=== PATIENT | male | born 1955 | race Caucasian/White ===

== ENCOUNTER → 2020-11-01 11:17 | Outpatient (CLI) | payer OTHER, SELFPAY ==
[2019-06-07 11:01] VITALS: BMI 24.1
--- NOTE | 2020-11-01 11:33 | VDLE_ITS ---
Reason For Study: Pain and swelling RIGHT LEFT GSV is normal. GSV is normal. CFV is compressible, spontaneous, phasic, CFV is compressible, spontaneous, phasic, competent and demonstrates normal competent, and demonstrates normal augmentation. augmentation. FV is compressible, spontaneous, phasic, FV is compressible, spontaneous, phasic, competent and demonstrates normal competent and demonstrates normal augmentation. augmentation. POP V is compressible, spontaneous, phasic, POP V is compressible, spontaneous, phasic, competent and demonstrates normal competent and demonstrates normal augmentation. augmentation. T/P Trunk is compressible. T/P Trunk is compressible. PTV is compressible. PTV is compressible. RT PerV is compressible. LT PerV is compressible. Procedure This is a venous duplex using B-mode, color flow and spectral Doppler. Exam performed in department. A preliminary report was called and/or faxed to [facility]. Interpretation Summary Deep veins of the lower extremities are bilaterally patent and compressible segmentally. There is no evidence of deep vein thrombosis on either side. Valvular competence appears intact within the proximal deep venous systems bilaterally. The great saphenous veins appear bilaterally patent and compressible segmentally. Ordering Physician: Olena Zhao Referring Physician: Mark Carty Performed By: Celi Hamilton RVT
[2020-11-01 11:34] LABS: Absolute Lymphocyte Count 3.43 X10^3/uL (0.83-4.51); Eosinophil# 0.13 X10^3/uL; Eosinophils% 1.3 % (0-5); Hematocrit 44.3 % (40-54); Lymphocyte # 3.43 X10^3/ul (4.0); Lymphocyte % 34.9 % (19-41); Mean Corp Hgb Conc 33.9 g/dL (32-36); Mean Corpuscular Hgb 34.4 pg (27.0-32.0); Mean Corpuscular Volume 101.6 fL (80-94); Monocyte# 1.14 X10^3/uL; Monocyte% 11.6 % (0-10); NRBC Flagged by Analyzer 0 % (0-5); Neutrophil % 50.9 % (47-70); Platelet Count 462 K/mm3 (150-450); RBC Distribution Width CV 12.1 % (11.6-14.6); RBC Distribution Width SD 45.9 fl (35.1-43.9); Red Blood Count 4.36 M/mm3 (4.6-6.2); White Blood Count 9.8 K/mm3 (4.4-11.0)
--- NOTE | 2020-11-01 12:00 | CT_ITS ---
STUDY: CT ABDOMEN AND PELVIS WITH CONTRAST REASON FOR EXAM: Male, 64 years old. INGUINAL PAIN ON RIGHT SIDE WITH LEG SWELLING. RADIATION DOSAGE (If Supplied By Facility): CTDIvol = ( 12.41 ) mGy, DLP = ( 1099.41 ) mGycm TECHNIQUE: Transaxial images were obtained from the dome of the diaphragm to the symphysis pubis without oral contrast. IV 100mL Isovue-300 was administered. Sagittal and coronal images were reconstructed. Individualized dose optimization techniques were used for this CT. COMPARISON: None. FINDINGS: The visualized lung bases are unremarkable. The visualized portions of the heart are within normal limits. Normal liver. Normal gallbladder and extrahepatic biliary system. Normal spleen. Normal pancreas. 3 cm x 2.2 cm hypodense nodule in the left adrenal gland. There is also evidence of a 1.2 cm low density nodule in the right adrenal gland. This may represent bilateral adrenal adenomas. Normal right kidney. Normal left kidney. Normal visualized stomach. There is thickening of the third and fourth portions of the duodenum. Increased markings are seen in the surrounding peritoneal fat. An inflammatory process should be ruled out. There are multiple colonic diverticula consistent with diverticulosis. The appendix is visualized and appears normal. There is diffuse atherosclerotic calcification of the abdominal aorta, without a demonstrated aneurysm. Normal inferior vena cava. Slightly enlarged retroperitoneal lymph nodes. Mild degree of bladder wall thickening. Mild enlargement of the prostate with central calcifications. The prostate causes indentation at the bladder base. Bilateral inguinal hernias containing fat. Small umbilical hernia containing fat. Multiple small sclerotic foci are seen within the sacrum as well as the iliac bones and throughout the lumbar spine. Focal metastatic deposits should be ruled out. Disc space narrowing at the L5-S1 level. CT/Abdomen/Pelvis WITH Contrast IMPRESSION: Inflammatory changes are seen along the third portion of the duodenum with increased markings in the surrounding peritoneal fat. Mildly enlarged retroperitoneal lymph nodes. Prostatic enlargement with indentation at the bladder base and diffuse bladder wall thickening. Multiple small sclerotic foci seen within the lumbar spine as well as the pelvic bones as described. Lateral adrenal nodules more prominent on the left side. Electronically Signed: Gianluca Curtis MD at 13:19 EST , Service support ,
[2020-11-01 12:16] LABS: Absolute Lymphocyte Count 3.02 X10^3/uL (0.83-4.51); Basophil# 0.08 X10^3/uL; Eosinophil# 0.11 X10^3/uL; Eosinophils% 1.3 % (0-5); Hematocrit 43.4 % (40-54); Hemoglobin 14.7 g/dL (13.0-16.5); Lymphocyte # 3.02 X10^3/ul (4.0); Lymphocyte % 36.7 % (19-41); Mean Corp Hgb Conc 33.9 g/dL (32-36); Mean Corpuscular Hgb 34.3 pg (27.0-32.0); Mean Corpuscular Volume 101.4 fL (80-94); Mean Platelet Vol. 9.5 fl (6.2-12.0); Monocyte# 0.97 X10^3/uL; Monocyte% 11.8 % (0-10); NRBC Flagged by Analyzer 0 % (0-5); Neutrophil # 4.04 X10^3/uL (2.7-7.7); Platelet Count 476 K/mm3 (150-450); RBC Distribution Width CV 12.1 % (11.6-14.6); RBC Distribution Width SD 45.4 fl (35.1-43.9); Red Blood Count 4.28 M/mm3 (4.6-6.2); White Blood Count 8.2 K/mm3 (4.4-11.0)
[2020-11-01 12:50] LABS: ALB/GLOB Ratio 1.2 RATIO (0.9-2.4); AST(SGOT) 13 U/L (15-37); Alanine Aminotransfer ALT/SGPT 29 U/L (16-61); Alkaline Phosphatase 132 U/L (45-117); Anion Gap 5 (5-15); BUN 15 mg/dL (7-18); BUN/Creat Ratio 16.3 RATIO (10-20); Calcium,Total 8.7 mg/dL (8.5-10.1); Chloride 107 mmol/L (98-107); Creatinine, Serum 0.92 mg/dL (0.70-1.30); EST Glomerular Filtration Rate 88 mL/min (>60); Est Glom Filt Rate - Afr Amer 107 mL/min (>60); Globulin 3.2 g/dL (2.2-4.2); Glucose 100 mg/dL (74-106); Protein, Total 7.2 g/dL (6.4-8.2); Sodium Level 139 mmol/L (136-145)
[2020-11-01 13:10] LABS: ALB/GLOB Ratio 1.5 RATIO (0.9-2.4); AST(SGOT) 14 U/L (15-37); Alanine Aminotransfer ALT/SGPT 29 U/L (16-61); Alkaline Phosphatase 131 U/L (45-117); Anion Gap 5 (5-15); BUN 15 mg/dL (7-18); BUN/Creat Ratio 16.9 RATIO (10-20); Calcium,Total 9.1 mg/dL (8.5-10.1); Chloride 106 mmol/L (98-107); Creatinine, Serum 0.89 mg/dL (0.70-1.30); EST Glomerular Filtration Rate 92 mL/min (>60); Est Glom Filt Rate - Afr Amer 111 mL/min (>60); Globulin 2.7 g/dL (2.2-4.2); Glucose 77 mg/dL (74-106); Potassium 4.7 mmol/L (3.5-5.1); Protein, Total 6.7 g/dL (6.4-8.2); Sodium Level 138 mmol/L (136-145)
== END ==
PROVIDERS: PCP Family Medicine; Referring Provider Nurse Practitioner; Visit Provider Nurse Practitioner
DX: R59.0 Localized enlarged lymph nodes (principal); R97.20 Elevated prostate specific antigen [PSA]; M79.661 Pain in right lower leg; M79.89 Other specified soft tissue disorders
CPT/HCPCS: 36415; 74177; 80053; 84153; 85025; 93970; Q9967; A4216

== ENCOUNTER → 2020-11-07 03:45 | Outpatient (CLI) | payer OTHER, SELFPAY ==
[2019-06-07 11:01] VITALS: BMI 24.1
--- NOTE | 2020-11-07 15:45 | PROSB_PTH ---
PATIENT: MISTI LOWE LOC: [facility] U#:[id number] AGE/SX: 69/M ROOM: RE11/07/[address]: Dr. Yo Rebolledo MD : [id number] BED: DIS: SPEC #: [id number] RECD: 11/07/20 17:00 STATUS: VANNA FEDERICO #: [id number] ROCAEL: 11/07/20 15:[address]: Yo Rebolledo DEPT: SURGICAL PATHOLOGY RECD BY: Mahendra Patel ENTERED: 11/08/20 11:44 SP TYPE: PROST BX OTHR DR: Dr. Mark Carty MD Tissues: Prostate, NOS Procedures: Surgery Specimen Level IV HEADER OPERATION: Prostate biopsy PRE-OP DIAGNOSIS: Elevated PSA TISSUE SUBMITTED: Prostate biopsy MICROSCOPIC DIAGNOSIS Prostate, core biopsy: Prostatic adenocarcinoma. Kristy grade: 4+3=7 Number of cores involved: 2/2 Proportion of tissue involved: >95% Perineural invasion: Present. Greatest tumor length: 1.3 cm See comment. SJ:lucinda 11/11/2020 COMMENT Focal tertiary pattern 5 is also noted. Case has been reviewed in consultation with Dr. Maya who concurs with the above diagnosis. IDC:AM MICROSCOPIC DESCRIPTION Slides are reviewed. GROSS DESCRIPTION Received in fixative is one container labeled with the patient's name and designated prostate. The specimen consists of two elongated fragments of light meade-white soft tissue each measuring 1.5 cm in length and 0.1 cm in diameter. The specimen is totally submitted in one cassette. / AM:lucinda 11/08/20 TC:0 CPT: 23246
== END ==
PROVIDERS: PCP Family Medicine; Referring Provider Urology; Visit Provider Urology
DX: R97.20 Elevated prostate specific antigen [PSA] (principal)
CPT/HCPCS: 88305

== ENCOUNTER → 2020-11-08 09:17 | Outpatient (CLI) | payer OTHER, SELFPAY ==
[2019-06-07 11:01] VITALS: BMI 24.1
--- NOTE | 2020-11-08 09:24 | NM_ITS ---
CLINICAL: 64-year-old male with reported history of carcinoma of the prostate. WHOLE BODY 99m Tc MDP RADIONUCLIDE BONE SCINTIGRAPHY COMPARISON: CT of the abdomen-pelvis report 11/01/2020 FINDINGS: Following the intravenous administration of 25.0 mCi of 99m Tc MDP, whole body bone images reveal: 1. Innumerable foci of increased radiopharmaceutical concentration or disseminated throughout the visualized axial skeletal structures to include multiple thoracic and lumbar vertebra, the bilateral hemipelvis, focally apparent in the right proximal humeral metaphysis, left proximal humeral diaphysis, the bilateral proximal femoral metaphysis and femoral neck-head, the right-left hemipelvic calvarium, a single focus in the upper cervical spine posteriorly to the left. 2. Facilitated tracer concentration is observed in the acromioclavicular compartments of both shoulders, sternoclavicular compartment of the left shoulder, the right elbow, left wrist, the left knee. 3. The remaining skeletal structures are scintigraphically unremarkable with normal-appearing renal images and urinary bladder activity identified. NM/Bone Scan Whole Body IMPRESSION: 1. The multifocal increase in radiopharmaceutical concentration identified in the appendicular and axial skeletal structures, the right-left calvarium is commensurate with diffuse osteoblastic osseous metastatic disease. 2. Degenerative arthritis appears expressed in the bilateral shoulders, right elbow, left wrist, the left knee articulation. Electronically Signed: Vincenzo Can DO at 8:03 EST Tel , Service support ,
== END ==
PROVIDERS: PCP Nurse Practitioner; Referring Provider Urology; Visit Provider Urology
DX: R93.5 Abnormal findings on diagnostic imaging of other abdominal regions, including retroperitoneum (principal)
CPT/HCPCS: 78306; A9500

== ENCOUNTER 2021-01-10 15:26 | Outpatient (RCR) | payer OTHER, SELFPAY ==
[2020-11-19 08:52] VITALS: BMI 23.3
[2021-01-10 10:42] LABS: Absolute Neutrophil Count 4.7 X10^3/uL (2.0-7.7); Basophil# 0.07 X10^3/uL; Basophil% 0.8 % (0-1); Eosinophil# 0.12 X10^3/uL; Eosinophils% 1.4 % (0-5); Hematocrit 40.3 % (40-54); Hemoglobin 13.3 g/dL (13.0-16.5); Lymphocyte % 34.9 % (19-41); Mean Corpuscular Hgb 33.9 pg (27.0-32.0); Mean Corpuscular Volume 102.8 fL (80-94); Mean Platelet Vol. 9.7 fl (6.2-12.0); Monocyte# 0.88 X10^3/uL; Monocyte% 9.9 % (0-10); NRBC Flagged by Analyzer 0 % (0-5); Neutrophil # 4.68 X10^3/uL (2.7-7.7); Neutrophil % 52.8 % (47-70); Platelet Count 438 K/mm3 (150-450); RBC Distribution Width CV 11.9 % (11.6-14.6); RBC Distribution Width SD 45.1 fl (35.1-43.9); Red Blood Count 3.92 M/mm3 (4.6-6.2); White Blood Count 8.9 K/mm3 (4.4-11.0)
[2021-01-10 10:55] LABS: ALB/GLOB Ratio 1.1 RATIO (0.9-2.4); AST(SGOT) 10 U/L (15-37); Alanine Aminotransfer ALT/SGPT 23 U/L (16-61); Alkaline Phosphatase 221 U/L (45-117); Anion Gap 4 (5-15); BUN 8 mg/dL (7-18); BUN/Creat Ratio 9.9 RATIO (10-20); Calcium,Total 9.2 mg/dL (8.5-10.1); Chloride 104 mmol/L (98-107); Creatinine, Serum 0.81 mg/dL (0.70-1.30); EST Glomerular Filtration Rate 102 mL/min (>60); Est Glom Filt Rate - Afr Amer 123 mL/min (>60); Globulin 3.7 g/dL (2.2-4.2); Glucose 99 mg/dL (74-106); LDH 130 U/L (87-241); PSA,Total- Diagnostic 4.75 ng/mL (0.0-4.0); Potassium 3.9 mmol/L (3.5-5.1); Protein, Total 7.7 g/dL (6.4-8.2); Sodium Level 136 mmol/L (136-145)
[2021-01-10 18:35] LABS: Xtra Tube EP Lab EXTRA TUBE
[2021-01-15 12:07] LABS: Testosterone, Free < 0.07 ng/dL (5.00-21.00)
[2021-01-15 13:31] LABS: Testosterone, % Free 2.32 % (1.50-4.20); Testosterone, Total < 3 ng/dL (264-916)
== END 2021-01-10 23:59 | disposition home or self-care (01) ==
LOC: PAVLAB 15:26
PROVIDERS: PCP Nurse Practitioner; Visit Provider Internal Medicine Medical Oncology
DX: C61 Malignant neoplasm of prostate (principal)
CPT/HCPCS: 80053; 83615; 84153; 84402; 84403; 85025

== ENCOUNTER → 2021-05-22 15:18 | Outpatient (CLI) | payer OTHER, SELFPAY ==
[2021-05-22 17:12] LABS: PSA,Total- Diagnostic 1.75 ng/mL (0.0-4.0)
== END ==
PROVIDERS: PCP Nurse Practitioner; Referring Provider Urology; Visit Provider Urology
DX: C61 Malignant neoplasm of prostate (principal)
CPT/HCPCS: 36415; 84153

== ENCOUNTER → 2021-09-01 14:58 | Outpatient (CLI) | payer OTHER, SELFPAY | PROVIDERS: PCP Nurse Practitioner; Visit Provider Urology | DX: C61 Malignant neoplasm of prostate (principal) | CPT/HCPCS: 36415; 84153 ==

== ENCOUNTER 2022-03-30 15:16 | Emergency (ER) | payer OTHER, SELFPAY ==
[2022-03-30 15:17] VITALS: BP 133/77; PULSE 64; RESP 18; TEMP 36.8; O2SAT 97; BMI 21.4
--- NOTE | 2022-03-30 16:04 | EDS_ITS ---
HPI History of Present Illness Chief Complaint: Abd Pain Informant: patient Narrative Narrative: Patient was sent by his oncologist for lower abdominal pain. Patient tells me that he currently takes no medications. He was diagnosed with stage IV prostate cancer about a year and a half ago. He had mets to his spine and hips. He did estrogen therapy. He did not do chemo or radiation or surgery. He also went on a very plant-based healthy diet. His PSA went from 160 down to about 4. Recent PSAs have been below 20. He has been having lower abdominal pain for somewhere about 3 to 4 months. He describes it as a rubber band that is tight around his abdomen. It is slowly worsening. He was seen in urgent care earlier this past week. He told him he had abdominal pain and back pain. They checked a urine it sounds like. They gave him muscle relaxants and a short course of prednisone. He tried this for 2 days but it did not do anything so he stopped them. He denies urinary symptoms. He denies change in bowel habits except some mild constipation after starting the antibiotics. He has never had fevers or chills. PFSH PFS Medical History Difficulty balancing Ganglion cyst of dorsum of left wrist Limb weakness Multiple sclerosis Home Medications dicyclomine 20 mg tablet 20 mg PO TID PRN cramps #20 tabs 03/30/22 [Rx Last Taken Unknown] Allergy/AdvReac Type Severity Reaction Status Date / Time No Known Allergies Allergy Verified 03/30/22 15:22 Family History Father Lung cancer Mother Hypertension Gout Uncle Pancreatic cancer maternal Lung cancer paternal Surgical History History of rotator cuff surgery Hx of prostate biopsy Previous back surgery Social History Smoking Status: Current every day smoker tobacco type: cigarettes alcohol intake: never ROS ROS ED Constitutional Constitutional ED: Denies chills, fever(s) or weight loss Eyes Eyes: Denies change in vision ENT ENT ED: Denies rhinorrhea or sore throat Cardiovascular Cardiovascular: Denies chest pain or palpitations Respiratory/Chest Respiratory/Chest: Denies cough, dyspnea or dyspnea on exertion Gastrointestinal Gastrointestinal: Reports abdominal pain and constipation; Denies diarrhea, melena, nausea or vomiting Genitourinary Genitourinary ED: Denies dysuria, hematuria or urinary frequency Musculoskeletal Musculoskeletal: Reports back pain Integumentary Denies rash Neurologic Neurologic: Denies headache(s), paresthesias or weakness Endocrine Endocrinology: Denies polydipsia or polyuria Hematologic/Lymphatic Hematologic/Lymphatic: Denies anemia Allergic/Immunologic Allergic/Immunologic ED: Denies urticaria EXAM Physical Exam Const Vital Signs: 03/30/22 15:17 03/30/22 18:47 Temperature 98.2 F Temperature Source Temporal Pulse Rate 64 Respiratory Rate 18 16 Blood Pressure 133/77 H Blood Pressure Mean 95 Pulse Ox 97 Oxygen Delivery Method Room Air Room Air Positive well nourished and well developed Constitutional Narrative: When I walk in the room the patient has his hands behind his heads. He says hello. He looks comfortable and nontoxic. General Appearance ED: well developed and NAD HEENT Reports moist mucous membranes Negative for trauma Eyes EOMs intact bilaterally General Eye ED: Negative for scleral icterus Neck supple Resp normal respiratory effort and clear to auscultation bilaterally Auscultation: Negative for rales, rhonchi or wheezes Cardio regular rate and regular rhythm GI normal to inspection, nondistended, normoactive bowel sounds and non-tender GI Narrative: Abdomen is really not tender. He states there is soreness through the lower abdomen but it does not seem sore when I press on it. He is very thin. Abdomen does seem slightly firmer than average. I do not feel a defined mass. I hear no bruit. I feel no pulsatile mass. Back/Spine no CVA tenderness Extremity normal to inspection Extremity Narrative: Peripheral pulses are normal. Neuro Sensorium / Orientation: alert Psych mental status grossly normal Skin no rashes or lesions noted MDM MDM MDM Narrative Medical decision making narrative: Patient's blood work shows minimal elevation white count. Hemoglobin normal. Electrolytes are overall normal. He does have a bump in his liver function test. ALT is higher than normal as his alkaline phosphatase. But his total bili is normal. AST is only minimally up. Urine is overall clean. CT scan shows some moderate intrahepatic biliary ductal dilatation. Gallbladder is small and contracted. Repeat exam shows the patient has some abdominal discomfort but he still has no tenderness. I press firmly over the gallbladder and it does not hurt. His LFTs have gone up in the last 2-1/2 months. He has been having symptoms for 3 or 4 months at least. He is eating and drinking well. His scans also verifies any known metastatic disease. This might be contributing to the other findings that are new. I discussed case with Dr. Ani rollins for gastroenterology. I do not think this patient needs to come in the hospital but I think he needs close follow-up. We will refer him. Lab Data Attestation: I reviewed the patient's lab results. Labs: Laboratory Results - last 24 hr 03/30/22 03/30/22 03/30/22 16:05 16:05 17:20 WBC 11.3 H RBC 3.72 L Hgb 13.1 Hct 38.0 L MCV 102.2 H MCH 35.2 H MCHC 34.5 RDW Std Deviation 46.2 H RDW Coeff of Ad 12.2 Plt Count 379 MPV 10.2 Immature Gran % (Auto) 0.900 Neut % (Auto) 57.2 Lymph % (Auto) 28.4 [place] % (Auto) 12.6 H Eos % (Auto) 0.4 Baso % (Auto) 0.5 Absolute Neuts (auto) 6.5 Absolute Lymphs (auto) 3.21 Nucleated RBC % 0 Sodium 136 Potassium 4.1 Chloride 105 Carbon Dioxide 26.0 Anion Gap 5 BUN 15 Creatinine 0.64 L Estim Creat Clear Calc 95.05 Est GFR (MDRD) Af Amer 161 Est GFR (MDRD) Non-Af 133 BUN/Creatinine Ratio 23.4 H Glucose 93 Calcium 8.8 Total Bilirubin 0.80 AST 80 H ALT 292 H Alkaline Phosphatase 636 H Total Protein 6.3 L Albumin 3.3 Globulin 3.0 Albumin/Globulin Ratio 1.1 Lipase 155 Urine Color Yellow Urine Clarity Clear Urine pH 7.0 Ur Specific [place] 1.010 Urine Protein Negative Urine Glucose (UA) Normal Urine Ketones 15 H Urine Occult Blood 10 H Urine Nitrite Negative Urine Bilirubin Negative Urine Urobilinogen Normal Ur Leukocyte Esterase Negative Urine RBC 0-5 SEEN Urine WBC 0 SEEN Ur Squamous Epith Cells 0-5 SEEN Urine Bacteria 0 SEEN Urine Mucus 0 SEEN Radiography Diagnostic Testing: Clinical Impression(s) from Imaging Studies Abdomen/Pelvis CT 03/30/22 17:15 IMPRESSION: 1. Small bilateral pleural effusions. 2. Interval development of moderate intrahepatic biliary ductal dilatation. 3. Sigmoid diverticulosis without diverticulitis. 4. Known blastic metastases without pathologic fracture. Electronically Signed: Vincenzo Pressley MD at 17:38 EDT , Discharge Plan Triage Chief Complaint: Abd Pain ED Provider: Chivo Vazquez Dx/Rx/DC Orders Clinical Impression: Abdominal pain, Prostate cancer metastatic to bone, Elevated liver function tests Instructions: Tests for Liver Disease, ED Abdominal Pain Unkn Cause Male... Prescriptions: New dicyclomine 20 mg tablet 20 mg PO TID PRN (Reason: cramps) Qty: 20 0RF Primary Care Provider: Madhavi Miramontes Referrals: Madhavi Miramontes DO [Primary Care Provider] - Willie Law DO [STAFF PHYSICIAN] - As soon as possible (Call tomorrow for an appointment as soon as possible.) Disposition Disposition: Home, Self Care
[2022-03-30] MEDS: Ondansetron 4 MG/2 ML Vial IV (16:10)
[2022-03-30] MEDS: Morphine 4 MG/ML Syringe IV (16:11)
[2022-03-30 16:33] LABS: Absolute Lymphocyte Count 3.21 X10^3/uL (0.83-4.51); Absolute Neutrophil Count 6.5 X10^3/uL (2.0-7.7); Basophil# 0.06 X10^3/uL; Basophil% 0.5 % (0-1); Eosinophil# 0.04 X10^3/uL; Eosinophils% 0.4 % (0-5); Hemoglobin 13.1 g/dL (13.0-16.5); Lymphocyte # 3.21 X10^3/ul (0.83-4.51); Lymphocyte % 28.4 % (19-41); Mean Corp Hgb Conc 34.5 g/dL (32-36); Mean Corpuscular Hgb 35.2 pg (27.0-32.0); Mean Corpuscular Volume 102.2 fL (80-94); Mean Platelet Vol. 10.2 fl (6.2-12.0); Monocyte# 1.42 X10^3/uL; Monocyte% 12.6 % (0-10); NRBC Flagged by Analyzer 0 % (0-5); Neutrophil # 6.48 X10^3/uL (2.7-7.7); Neutrophil % 57.2 % (47-70); Platelet Count 379 K/mm3 (150-450); RBC Distribution Width CV 12.2 % (11.6-14.6); RBC Distribution Width SD 46.2 fl (35.1-43.9); Red Blood Count 3.72 M/mm3 (4.6-6.2); White Blood Count 11.3 K/mm3 (4.4-11.0)
[2022-03-30 16:47] LABS: ALB/GLOB Ratio 1.1 RATIO (0.9-2.4); AST(SGOT) 80 U/L (15-37); Alanine Aminotransfer ALT/SGPT 292 U/L (16-61); Albumin, Serum 3.3 g/dL (3.2-5.0); Alkaline Phosphatase 636 U/L (45-117); Anion Gap 5 (5-15); BUN 15 mg/dL (7-18); BUN/Creat Ratio 23.4 RATIO (10-20); Calcium,Total 8.8 mg/dL (8.5-10.1); Chloride 105 mmol/L (98-107); Creatinine, Serum 0.64 mg/dL (0.70-1.30); EST Glomerular Filtration Rate 133 mL/min (>60); Est Glom Filt Rate - Afr Amer 161 mL/min (>60); Estimated Creatinine Clearance 95.05 ml/min; Glucose 93 mg/dL (74-106); Lipase 155 U/L (73-393); Potassium 4.1 mmol/L (3.5-5.1); Protein, Total 6.3 g/dL (6.4-8.2); Sodium Level 136 mmol/L (136-145)
--- NOTE | 2022-03-30 17:15 | CT_ITS ---
STUDY: CT ABDOMEN AND PELVIS WITH CONTRAST REASON FOR EXAM: Male, 66 years old. lower abd and back pain RADIATION DOSAGE (If Supplied By Facility): CTDIvol = ( 11.58 ) mGy, DLP = ( 316.67 ) mGycm TECHNIQUE: Transaxial images were obtained from the dome of the diaphragm to the symphysis pubis without oral contrast. IV 100mL Isovue-300 was administered. Sagittal and coronal images were reconstructed. Individualized dose optimization techniques were used for this CT. COMPARISON: 11/01/2020 FINDINGS: Small bilateral pleural effusions with bibasilar atelectasis. The visualized portions of the heart are within normal limits. Normal liver. The gallbladder is contracted. Moderate intrahepatic biliary ductal dilatation. Normal spleen. Normal pancreas. Normal bilateral adrenal glands. Normal right kidney. Normal left kidney. Normal visualized stomach. Normal small intestine. There are multiple colonic diverticula consistent with diverticulosis. There is non-visualization of the appendix. There is diffuse atherosclerotic calcification of the abdominal aorta, without a demonstrated aneurysm. Normal inferior vena cava. Normal retroperitoneum. Normal urinary bladder. There are prostatic calcifications. Normal abdominal wall. Innumerable sclerotic lesions throughout the axial skeleton consistent with blastic metastatic disease from prostatic carcinoma. CT/Abdomen/Pelvis W IV Cont ONLY IMPRESSION: 1. Small bilateral pleural effusions. 2. Interval development of moderate intrahepatic biliary ductal dilatation. 3. Sigmoid diverticulosis without diverticulitis. 4. Known blastic metastases without pathologic fracture. Electronically Signed: Vincenzo Pressley MD at 17:38 EDT ,
[2022-03-30 17:29] LABS: Bacteria 0 SEEN /hpf (None Seen); Mucous, Urine 0 SEEN /hpf (<or=2+); White Blood Cells 0 SEEN /hpf (0-5)
[2022-03-30 17:43] LABS: Color, Urine Yellow (Yellow); Glucose, Dipstick Normal (Normal); Ketone-Dipstick 15 mg/dl (Negative); Leukocyte Esterase-Dipstick Negative /ul (Negative); Nitrite-Dipstick Negative (Negative); Occult Blood-Urine 10 /ul (Negative); Protein-Dipstick Negative (Negative); Urine Bilirubin Dipstick Negative (Negative); Urine Clarity Clear (Clear); Urine Urobilinogen Normal (Normal)
[2022-03-30 18:09] LABS: Red Blood Cells-Urine 0-5 SEEN /hpf (0-5); Squamous Epithelial Cells - UA 0-5 SEEN /hpf (0-5)
[2022-03-30 18:47] VITALS: RESP 16
== END 2022-03-30 19:35 | disposition home or self-care (01) ==
PROVIDERS: Emergency Provider Emergency Medicine; PCP Internal Medicine; Visit Provider Emergency Medicine
DX: R10.30 Lower abdominal pain, unspecified (principal); C79.51 Secondary malignant neoplasm of bone; C61 Malignant neoplasm of prostate; R79.89 Other specified abnormal findings of blood chemistry; F17.210 Nicotine dependence, cigarettes, uncomplicated
CPT/HCPCS: 74177; 80053; 81001; 83690; 85025; 96361; 96374; 96375; 99283; J7030; Q9967; A4216; J2405

== ENCOUNTER 2022-04-06 19:54 | Inpatient (IN) | payer OTHER, MEDICARE, SELFPAY ==
[2022-04-06 19:56] VITALS: BP 151/87; PULSE 73; RESP 16; TEMP 36.3; O2SAT 96; BMI 21.2
[2022-04-06] MEDS: Morphine 4 MG/ML Syringe IV (20:35)
[2022-04-06] MEDS: Ondansetron 4 MG/2 ML Vial IV (20:35)
[2022-04-06 20:49] LABS: Absolute Lymphocyte Count 1.67 X10^3/uL (0.83-4.51); Absolute Neutrophil Count 6.4 X10^3/uL (2.0-7.7); Basophil# 0.07 X10^3/uL; Basophil% 0.8 % (0-1); Eosinophil# 0.06 X10^3/uL; Eosinophils% 0.6 % (0-5); Hematocrit 37.5 % (40-54); Hemoglobin 13.2 g/dL (13.0-16.5); Lymphocyte # 1.67 X10^3/ul (0.83-4.51); Lymphocyte % 18.1 % (19-41); Mean Corp Hgb Conc 35.2 g/dL (32-36); Mean Corpuscular Hgb 34.8 pg (27.0-32.0); Mean Corpuscular Volume 98.9 fL (80-94); Mean Platelet Vol. 10.2 fl (6.2-12.0); Monocyte# 1.03 X10^3/uL; Monocyte% 11.1 % (0-10); NRBC Flagged by Analyzer 0 % (0-5); Neutrophil # 6.37 X10^3/uL (2.7-7.7); Neutrophil % 68.9 % (47-70); Platelet Count 387 K/mm3 (150-450); RBC Distribution Width CV 14.2 % (11.6-14.6); RBC Distribution Width SD 51.9 fl (35.1-43.9); Red Blood Count 3.79 M/mm3 (4.6-6.2); White Blood Count 9.3 K/mm3 (4.4-11.0)
[2022-04-06 20:58] LABS: Prothrombin Time (Protime)PT. 13.2 SECONDS (11.7-14.9)
[2022-04-06 21:12] LABS: Color, Urine Yellow (Yellow); Glucose, Dipstick Normal (Normal); Ketone-Dipstick 50 mg/dl (Negative); Leukocyte Esterase-Dipstick 25 /ul (Negative); Nitrite-Dipstick Negative (Negative); Occult Blood-Urine 25 /ul (Negative); Protein-Dipstick 30 mg/dl (Negative); Specific Gravity, Urine 1.015 (1.002-1.030); Urine Clarity Clear (Clear); Urine Urobilinogen 4 mg/dl (Normal); Urine pH 6.5 (5.0 - 8.0)
[2022-04-06 21:27] LABS: AST(SGOT) 83 U/L (15-37); Alanine Aminotransfer ALT/SGPT 157 U/L (16-61); Albumin, Serum 3.1 g/dL (3.2-5.0); Alkaline Phosphatase 964 U/L (45-117); Anion Gap 9 (5-15); BUN 8 mg/dL (7-18); BUN/Creat Ratio 12.5 RATIO (10-20); Bilirubin, Direct 5.92 mg/dL (0.00-0.30); Calcium,Total 9.1 mg/dL (8.5-10.1); Chloride 102 mmol/L (98-107); Creatinine, Serum 0.64 mg/dL (0.70-1.30); EST Glomerular Filtration Rate 134 mL/min (>60); Est Glom Filt Rate - Afr Amer 162 mL/min (>60); Globulin 3.4 g/dL (2.2-4.2); Glucose 96 mg/dL (74-106); Lipase 569 U/L (73-393); Potassium 4.1 mmol/L (3.5-5.1); Protein, Total 6.5 g/dL (6.4-8.2); Sodium Level 135 mmol/L (136-145)
--- NOTE | 2022-04-06 21:33 | EX.ED.DYSGE1 ---
[facility] <Dr. Yanick Thompson MD - Last Filed: 04/08/22 00:37> History of Present Illness Chief Complaint: General Illness Detail of Chief Complaint: Abdominal pain, yellow color to eyes Informant: patient Onset/Context/Timing Onset: Days Context: Sudden Onset Timing: Continuous Quality: Jaundice, abdominal discomfort Location: Liver and abdomen Current Severity: Mild Maximum Severity: Moderate Worsened by: Nothing specific Relieved by: Nothing Associated Symptoms Associated Symptoms: Mild weight loss Narrative Narrative: Patient is a 66-year-old male with history of metastatic prostate cancer. He is seen by Dr. Enrique. He was seen for similar presentation on March 30. CAT scan revealed bilateral small pleural effusions, intra ductal dilatation due to obstruction and metastatic blastic lesion that was noted on prior. The intraductal dilatation is worse than what was noted on prior images. Patient denies fever or chills. Patient denies night sweats. Patient denies headache, ocular, visual or auditory symptoms other than his eyes being yellow. He denies cough or shortness of breath. He denies dyspnea on exertion. He denies orthopnea or PND. He does report abdominal discomfort with distention. He denies history of alcohol use. He denies history of drug use. He is a smoker. He does report dark-colored urine. His stool is still brown. He denies black or maroon-colored stool. He denies blood in his stool. He denies dysuria, frequency or urgency. Prior similar symptoms: Yes Recent Illness/Hospitalization: Yes PFSH <Dr. Yanick Thompson MD - Last Filed: 04/08/22 00:37> [facility] Medical History (Updated 04/07/22 @ 08:33 by Millie Kumar) Cancer Difficulty balancing Diverticulitis Ganglion cyst of dorsum of left wrist Limb weakness Multiple sclerosis Smoker Substance abuse Home Medications dicyclomine 20 mg tablet 20 mg PO TID PRN cramps #20 tabs 03/30/22 [Rx Last Taken Unknown] ondansetron 4 mg disintegrating tablet 4 mg PO Q8H PRN nausea and vomiting #10 tabs 03/30/22 [Rx Last Taken Unknown] Allergy/AdvReac Type Severity Reaction Status Date / Time No Known Allergies Allergy Verified 04/06/22 19:56 Family History Father Lung cancer Mother Hypertension Gout Uncle Pancreatic cancer maternal Lung cancer paternal Surgical History (Updated 04/07/22 @ 08:34 by Millie Kumar) History of microdiscectomy History of rotator cuff surgery Hx of prostate biopsy Previous back surgery Social History (Updated 04/07/22 @ 08:[address] Angelica Mcfarland MD) household members: spouse and family Smoking Status: Current every day smoker tobacco type: cigarettes alcohol intake: never substance use type: does not use ROS <Dr. Yanick Thompson MD - Last Filed: 04/08/22 00:37> ROS ED Constitutional Constitutional ED: Reports weight loss; Denies chills, fever(s), subjective or sweats Eyes Eyes: Denies blurry vision, change in vision or diplopia ENT ENT ED: Denies ear pain, rhinorrhea or sore throat Cardiovascular Cardiovascular: Denies chest pain, orthopnea, palpitations, paroxysmal nocturnal dyspnea or racing heartbeat Respiratory/Chest Respiratory/Chest: Denies cough, dyspnea, dyspnea on exertion, orthopnea or paroxysmal nocturnal dyspnea Gastrointestinal Gastrointestinal: Reports abdominal pain and nausea; Denies constipation, diarrhea, melena or vomiting Genitourinary Genitourinary ED: Denies dysuria, hematuria or urinary frequency Musculoskeletal Musculoskeletal: Reports back pain; Denies arthralgias, myalgias or neck pain Integumentary Denies abscess, Abrasions or rash Neurologic Neurologic: Denies headache(s), paresthesias or weakness Psychiatric Psychiatric: Denies anxiety or depression Endocrine Endocrinology: Denies cold intolerance or heat intolerance Hematologic/Lymphatic Hematologic/Lymphatic: Denies easy bruising or lymphadenopathy EXAM <Dr. Yanick Thompson MD - Last Filed: 04/08/22 00:37> Physical Exam Const Vital Signs: 04/07/22 05:07 Pulse Rate 79 Respiratory Rate 16 Blood Pressure 138/82 H Blood Pressure Mean 100 Pulse Ox 95 Positive well developed; Negative for obese or cachectic Constitutional Narrative: Patient is a thin gentleman. He is not cachectic. There is no temporal wasting. He does appear yellow, jaundice. General Appearance ED: well developed; Negative for cachectic, cyanotic or diaphoretic Nutritional Appearance: Negative for cachectic or obese HEENT Reports TM's clear and moist mucous membranes HEENT Narrative: Nares patent. Uvula midline. No erythema or exudate. Negative for trauma or tenderness Tympanic Membrane ED: Yes TM's clear Eyes PERRL and EOMs intact bilaterally General Eye ED: Yes scleral icterus Neck no lymphadenopathy, supple and no JVD Chest Wall inspection of chest normal and palpation of chest normal Resp normal respiratory effort and clear to auscultation bilaterally Cardio regular rate, regular rhythm, S1 normal heart sound, S2 normal heart sound and no murmurs GI Negative for normal to inspection, nondistended, normoactive bowel sounds, non-tender, non-distended or hepatosplenomegaly GI Narrative: Abdomen slightly prominent. There is tympany to percussion. There is no shifting dullness and there is no fluid wave. There is no paraspinal megaly. Bowel sounds are diminished. Back/Spine no CVA tenderness Cervical Spine: Negative for cervical spine tenderness Thoracic Spine / Upper Back: Negative for thoracic spinal tenderness Lumbar Spine / Lower Back: Negative for lumbar spinal tenderness Extremity normal to inspection General Extremety ED: Negative for edema or tenderness General Extremity: Negative for edema Neuro oriented x3, CN's II-XII intact bilaterally and no sensory deficits noted Sensorium / Orientation: alert Motor Exam: strength 5/5 throughout Psych mental status grossly normal Skin no rashes or lesions noted, no wounds and skin turgor normal General Skin Exam: jaundice <Dr. Chivo Vazquez MD - Last Filed: 04/07/22 07:17> Physical Exam Const Vital Signs: 04/07/22 05:07 Pulse Rate 79 Respiratory Rate 16 Blood Pressure 138/82 H Blood Pressure Mean 100 Pulse Ox 95 MDM <Dr. Yanick Thompson MD - Last Filed: 04/08/22 00:37> [facility] Narrative Medical decision making narrative: Patient with jaundice back pain. The back pain may be due to the metastatic blastic lesion noted on prior scans. He does have metastatic prostate cancer. Records from March 30 were reviewed. He has evidence of intraductal dilatation consistent with obstructive pattern. Patient at this time has significant jaundice. Will obtain blood work to compare. He does have an appointment with Dr. Law on April 10. CT of the abdomen pelvis with IV and p.o. contrast is pending. Case was turned over to the evening physician, Dr. Chivo Carrera Lab Data Attestation: I reviewed the patient's lab results. Lab results narrative: White count and H&H are unremarkable. PT/INR is unremarkable. Total bili is 7 with a direct bili of 5.92. AST and ALT are elevated 83 and 157. Alkaline phosphatase elevated 964. Lipase is elevated 569. Labs: Laboratory Results - last 24 hr 04/06/22 04/06/22 04/06/22 20:40 20:40 20:40 WBC 9.3 RBC 3.79 L Hgb 13.2 Hct 37.5 L MCV 98.9 H MCH 34.8 H MCHC 35.2 RDW Std Deviation 51.9 H RDW Coeff of Ad 14.2 Plt Count 387 MPV 10.2 Immature Gran % (Auto) 0.500 Neut % (Auto) 68.9 Lymph % (Auto) 18.1 L [place] % (Auto) 11.1 H Eos % (Auto) 0.6 Baso % (Auto) 0.8 Absolute Neuts (auto) 6.4 Absolute Lymphs (auto) 1.67 Nucleated RBC % 0 PT 13.2 INR 1.0 Sodium 135 L Potassium 4.1 Chloride 102 Carbon Dioxide 24.0 Anion Gap 9 BUN 8 Creatinine 0.64 L Estim Creat Clear Calc 94.50 Est GFR (MDRD) Af Amer 162 Est GFR (MDRD) Non-Af 134 BUN/Creatinine Ratio 12.5 Glucose 96 Calcium 9.1 Total Bilirubin 7.00 H Direct Bilirubin 5.92 H AST 83 H ALT 157 H Alkaline Phosphatase 964 H Total Protein 6.5 Albumin 3.1 L Globulin 3.4 Lipase 569 H Urine Color Urine Clarity Urine pH Ur Specific [place] Urine Protein Urine Glucose (UA) Urine Ketones Urine Occult Blood Urine Nitrite Urine Bilirubin Urine Urobilinogen Ur Leukocyte Esterase 04/06/22 21:03 WBC RBC Hgb Hct MCV MCH MCHC RDW Std Deviation RDW Coeff of Ad Plt Count MPV Immature Gran % (Auto) Neut % (Auto) Lymph % (Auto) Cascade % (Auto) Eos % (Auto) Baso % (Auto) Absolute Neuts (auto) Absolute Lymphs (auto) Nucleated RBC % PT INR Sodium Potassium Chloride Carbon Dioxide Anion Gap BUN Creatinine Estim Creat Clear Calc Est GFR (MDRD) Af Amer Est GFR (MDRD) Non-Af BUN/Creatinine Ratio Glucose Calcium Total Bilirubin Direct Bilirubin AST ALT Alkaline Phosphatase Total Protein Albumin Globulin Lipase Urine Color Yellow Urine Clarity Clear Urine pH 6.5 Ur Specific [place] 1.015 Urine Protein 30 H Urine Glucose (UA) Normal Urine Ketones 50 H Urine Occult Blood 25 H Urine Nitrite Negative Urine Bilirubin 6 H Urine Urobilinogen 4 H Ur Leukocyte Esterase 25 H Radiography Diagnostic Testing: Clinical Impression(s) from Imaging Studies Abdomen/Pelvis CT 04/06/22 21:42 IMPRESSION: 1. There is a dense structure measuring 2.2 x 1.2 x 1.1 cm in the distal common bile duct associated with intra and extrahepatic biliary dilatation unchanged since the previous exam. This may be due to stones or a mass. Consider ERCP for further evaluation and treatment. 2. Diffuse gallbladder wall edema. 3. The left adrenal gland is heterogeneously enlarged measuring 3.4 x 2.3 x 3.3 cm unchanged since previous exam. Metastatic disease cannot be excluded. 4. Numerous sclerotic bone metastases unchanged. Electronically Signed: Chuckie Lainez MD at 0:19 EDT , ADDENDUM: 04/07/22 0029 IMPRESSION: 1. There is a dense structure measuring 2.2 x 1.2 x 1.1 cm in the distal common bile duct associated with intra and extrahepatic biliary dilatation unchanged since the previous exam. This may be due to stones or a mass. Consider ERCP for further evaluation and treatment. 2. Diffuse gallbladder wall edema. 3. The left adrenal gland is heterogeneously enlarged measuring 3.4 x 2.3 x 3.3 cm unchanged since previous exam. Metastatic disease cannot be excluded. 4. Numerous sclerotic bone metastases unchanged. N.B. : The above Results were Read Back by Chuckie Lainez MD to Dr. Taylor MD, and understanding confirmed on 04/07/2022 00:22:43 (ET). Electronically Signed: Chuckie Lainez MD at 0:19 EDT , <Dr. Chivo Vazquez MD - Last Filed: 04/07/22 07:17> [facility] Narrative Medical decision making narrative: Patient with jaundice back pain. The back pain may be due to the metastatic blastic lesion noted on prior scans. He does have metastatic prostate cancer. Records from March 30 were reviewed. He has evidence of intraductal dilatation consistent with obstructive pattern. Patient at this time has significant jaundice. Will obtain blood work to compare. He does have an appointment with Dr. Law on April 10. CT of the abdomen pelvis with IV and p.o. contrast is pending. Case was turned over to the evening physician, Dr. Chivo Carrera Patient CT did show similar findings but also appears to have a density in the distal common duct that is likely causing obstruction. It is unclear if this is stone or possible cholangiocarcinoma. This would require ERCP for biopsy and further evaluation. I do not currently have gastroenterology on-call tonight but they should be available in the morning. The surgeon control room supervisor for the night does not do ERCP. I talked to the patient about going to another facility. He does not want to do that. He wants to stay here if at all possible. I agree that I will call his shell sorter in the morning. The hospitalist is not comfortable admitting him here until we know we can provide the appropriate services that this patient needs. I was able to discuss the case with Dr. Law and his nurse practitioner in the morning. He will be happy to see the patient in consultation and can do ERCP. I have hospitalist on page regarding admission. He agrees that this patient should not go home with the rapid rise in bilirubin. Patient is comfortable. However, each time he eats he gets an exacerbation of pain which is making it hard for him to eat. Lab Data Labs: Laboratory Results - last 24 hr 04/06/22 04/06/22 04/06/22 20:40 20:40 20:40 WBC 9.3 RBC 3.79 L Hgb 13.2 Hct 37.5 L MCV 98.9 H MCH 34.8 H MCHC 35.2 RDW Std Deviation 51.9 H RDW Coeff of Ad 14.2 Plt Count 387 MPV 10.2 Immature Gran % (Auto) 0.500 Neut % (Auto) 68.9 Lymph % (Auto) 18.1 L [place] % (Auto) 11.1 H Eos % (Auto) 0.6 Baso % (Auto) 0.8 Absolute Neuts (auto) 6.4 Absolute Lymphs (auto) 1.67 Nucleated RBC % 0 PT 13.2 INR 1.0 Sodium 135 L Potassium 4.1 Chloride 102 Carbon Dioxide 24.0 Anion Gap 9 BUN 8 Creatinine 0.64 L Estim Creat Clear Calc 94.50 Est GFR (MDRD) Af Amer 162 Est GFR (MDRD) Non-Af 134 BUN/Creatinine Ratio 12.5 Glucose 96 Calcium 9.1 Total Bilirubin 7.00 H Direct Bilirubin 5.92 H AST 83 H ALT 157 H Alkaline Phosphatase 964 H Total Protein 6.5 Albumin 3.1 L Globulin 3.4 Lipase 569 H Urine Color Urine Clarity Urine pH Ur Specific [place] Urine Protein Urine Glucose (UA) Urine Ketones Urine Occult Blood Urine Nitrite Urine Bilirubin Urine Urobilinogen Ur Leukocyte Esterase 04/06/22 21:03 WBC RBC Hgb Hct MCV MCH MCHC RDW Std Deviation RDW Coeff of Ad Plt Count MPV Immature Gran % (Auto) Neut % (Auto) Lymph % (Auto) [place] % (Auto) Eos % (Auto) Baso % (Auto) Absolute Neuts (auto) Absolute Lymphs (auto) Nucleated RBC % PT INR Sodium Potassium Chloride Carbon Dioxide Anion Gap BUN Creatinine Estim Creat Clear Calc Est GFR (MDRD) Af Amer Est GFR (MDRD) Non-Af BUN/Creatinine Ratio Glucose Calcium Total Bilirubin Direct Bilirubin AST ALT Alkaline Phosphatase Total Protein Albumin Globulin Lipase Urine Color Yellow Urine Clarity Clear Urine pH 6.5 Ur Specific [place] 1.015 Urine Protein 30 H Urine Glucose (UA) Normal Urine Ketones 50 H Urine Occult Blood 25 H Urine Nitrite Negative Urine Bilirubin 6 H Urine Urobilinogen 4 H Ur Leukocyte Esterase 25 H Radiography Diagnostic Testing: Clinical Impression(s) from Imaging Studies Abdomen/Pelvis CT 04/06/22 21:42 IMPRESSION: 1. There is a dense structure measuring 2.2 x 1.2 x 1.1 cm in the distal common bile duct associated with intra and extrahepatic biliary dilatation unchanged since the previous exam. This may be due to stones or a mass. Consider ERCP for further evaluation and treatment. 2. Diffuse gallbladder wall edema. 3. The left adrenal gland is heterogeneously enlarged measuring 3.4 x 2.3 x 3.3 cm unchanged since previous exam. Metastatic disease cannot be excluded. 4. Numerous sclerotic bone metastases unchanged. Electronically Signed: Chuckie Lainez MD at 0:19 EDT , ADDENDUM: 04/07/22 0029 IMPRESSION: 1. There is a dense structure measuring 2.2 x 1.2 x 1.1 cm in the distal common bile duct associated with intra and extrahepatic biliary dilatation unchanged since the previous exam. This may be due to stones or a mass. Consider ERCP for further evaluation and treatment. 2. Diffuse gallbladder wall edema. 3. The left adrenal gland is heterogeneously enlarged measuring 3.4 x 2.3 x 3.3 cm unchanged since previous exam. Metastatic disease cannot be excluded. 4. Numerous sclerotic bone metastases unchanged. N.B. : The above Results were Read Back by Chuckie Lainez MD to Dr. Taylor MD, and understanding confirmed on 04/07/2022 00:22:43 (ET). Electronically Signed: Chuckie Lainez MD at 0:19 EDT , Discharge Plan Dx/Rx/DC Orders Clinical Impression: Common bile duct mass, Abdominal pain, Jaundice Disposition Disposition: Acute Care Hospital [facility]
[2022-04-06 21:37] LABS: Urine Bilirubin Dipstick 6 mg/dL (Negative)
--- NOTE | 2022-04-06 21:42 | CT_ITS ---
We are attempting to reach an attending provider to discuss findings. An addendum with communication details will be sent when the communication is complete. EXAM: CT ABDOMEN AND PELVIS WITH INTRAVENOUS CONTRAST CLINICAL INDICATION: Jaundice, concern for pancreatic cancer -- IV PO Contrast, history of metastatic prostate c TECHNIQUE: Helically acquired images were obtained of the abdomen and pelvis with intravenous contrast. This CT exam was performed using one or more of the following dose reduction techniques: automated exposure control, adjustment of the mA and/or kV according to patient size, and/or use of iterative reconstruction technique. This report was created using [email or web address] report [employer] technology. CONTRAST: 100 cc of Isovue-370 IV. Gastrografin oral contrast. RADIATION DOSE: CTDIvol = 10.15 mGy, DLP = 341.32 mGy-cm. COMPARISON: 03/30/2022. FINDINGS: LOWER THORAX: Unremarkable. Lung bases are clear. No cardiomegaly. No significant pericardial effusion. ABDOMEN: LIVER: Unremarkable. Homogeneous. No focal mass. GALLBLADDER AND BILE DUCTS: There is a dense structure measuring 2.2 x 1.2 x 1.1 cm in the distal common bile duct associated with intra and extrahepatic biliary dilatation unchanged since the previous exam. Diffuse gallbladder wall edema. No calcified gallstones. PANCREAS: Unremarkable. No focal cystic or solid mass. SPLEEN: Unremarkable. Normal size without focal cystic or solid mass. ADRENALS: The left adrenal gland is heterogeneously enlarged measuring 3.4 x 2.3 x 3.3 cm unchanged since previous exam. KIDNEYS AND URETERS: Unremarkable. Normal renal size and position. No hydronephrosis. STOMACH AND BOWEL: Unremarkable. No stomach or bowel distention. No focal inflammatory change. PELVIS: APPENDIX: No evidence of acute appendicitis. BLADDER: Unremarkable. REPRODUCTIVE: Unremarkable as visualized. No mass. ABDOMEN and PELVIS: INTRAPERITONEAL SPACE: Unremarkable. No ascites or other fluid collection. No free air. BONES/JOINTS: Numerous sclerotic bone metastases unchanged. SOFT TISSUES: Unremarkable. No discrete abdominal or pelvic wall hernia. VASCULATURE: Unremarkable. Abdominal aorta is non-dilated. LYMPH NODES: Unremarkable. No enlarged lymph nodes. CT/Abdomen/Pelvis WITH Contrast IMPRESSION: 1. There is a dense structure measuring 2.2 x 1.2 x 1.1 cm in the distal common bile duct associated with intra and extrahepatic biliary dilatation unchanged since the previous exam. This may be due to stones or a mass. Consider ERCP for further evaluation and treatment. 2. Diffuse gallbladder wall edema. 3. The left adrenal gland is heterogeneously enlarged measuring 3.4 x 2.3 x 3.3 cm unchanged since previous exam. Metastatic disease cannot be excluded. 4. Numerous sclerotic bone metastases unchanged. Electronically Signed: Chuckie Lainez MD at 0:19 EDT ,
[2022-04-06 23:50] VITALS: BP 159/86; PULSE 70; RESP 16; O2SAT 96
[2022-04-07] VITALS (14 sets, daily range): BP systolic 127–160; BP diastolic 68–86; PULSE 69–84; RESP 15–18; TEMP 36.1–37.2; O2SAT 95–99; BMI 20.8
[2022-04-07] MEDS: Morphine 4 MG/ML Syringe IV (02:21)
--- NOTE | 2022-04-07 07:23 | HP.PCM.HOS_ITS ---
HPI - General General Date of Admission: 04/07/22 Date of Service: 04/07/22 Chief Complaint: Generalised weakness, abnormal labs HPI Narrative CHUCKIE LOWE, is a 66 M who presents with progressive abdominal pain ongoing for weeks. Patient has history of metastatic prostate CA, who had gone to follow-up with his oncologist, Dr. Enrique on 03/30/2022. He was sent to the emergency room at that time and evaluation has shown a common bile duct mass. He was given an outpatient follow-up with GI. Patient however noticed that he had become jaundiced for the last couple of days as well as progressive pain. His pain is located in the right posterior/flank region and extends across the back and down anteriorly also. He has associated nausea and vomiting. Pain is worse with eating. He has not been able to eat since yesterday. He denies any weight loss or night sweats fever or chills. He admits to constipation for about 4 days. His urine is dark and stools are pale. Patient's vitals in the ED showed blood pressure 151/87, heart rate 73, respiratory 16, temperature 97.2 F, SPO2 96% on room air. WBC is 9.3, Hb 13.2, platelet count 387. Sodium is 135, potassium 4.1, chloride is 102, bicarbonate 24, BUN 8, creatinine 0.64, total bilirubin 7, WBC 5.92, AST 83, ALT 157, ALP 964, albumin 3.1, lipase 569. UA is unremarkable. CT abdomen and pelvis shows evidence structure measuring 2.2 x 1.2 x 1.1 cm in the distal common bile duct associated with intra and extrahepatic biliary dilatation. Diffuse gallbladder wall edema. COUNTS INCLUDE 234 BEDS AT THE [facility] Medical History Difficulty balancing Ganglion cyst of dorsum of left wrist Limb weakness Multiple sclerosis Home Medications dicyclomine 20 mg tablet 20 mg PO TID PRN cramps #20 tabs 03/30/22 [Rx Last Taken Unknown] ondansetron 4 mg disintegrating tablet 4 mg PO Q8H PRN nausea and vomiting #10 tabs 03/30/22 [Rx Last Taken Unknown] oxycodone 5 mg tablet 5 mg PO Q6H PRN pain 3 days #12 tabs 03/30/22 [Rx Last Taken Unknown] Allergy/AdvReac Type Severity Reaction Status Date / Time No Known Allergies Allergy Verified 04/06/22 19:56 Family History Father Lung cancer Mother Hypertension Gout Uncle Pancreatic cancer maternal Lung cancer paternal Surgical History History of rotator cuff surgery Hx of prostate biopsy Previous back surgery Social History (Updated 04/07/22 @ 08:[address] Angelica Mcfarland MD) household members: spouse and family Smoking Status: Current every day smoker tobacco type: cigarettes alcohol intake: never substance use type: does not use ROS ROS Narrative Constitutional: Reports: Malaise, Weakness, Fatigue. Denies: Anorexia, Chills, Fever, Night Sweats, Weight Change Eyes: Denies: Blurred vision, Cataracts, Conjunctivae Inflammation, Pain, Redness, Vision Change HEENT: Denies: Difficulty Hearing, Difficulty Swallowing, Head Aches, Hearing Changes, Sinus Congestion, Sinus Drainage Cardiovascular: Denies: Chest Pain, Orthopnea, Palpitations Respiratory: Denies: Cough, Shortness of breath at rest, Sputum production Gastrointestinal: See HPI Genitourinary: Denies: Dysuria Musculoskeletal: Denies: Joint Pain, Joint stiffness, Joint swelling, Joint Tenderness Skin: Denies: Rash, Wounds Neurological: Denies: Numbness, Tingling, Focal weakness Vital Signs Vital Signs Vital Signs: 04/06/22 19:56 04/06/22 23:50 04/07/22 05:07 Temperature 97.3 F L Temperature Source Temporal Pulse Rate 73 70 79 Respiratory Rate 16 16 16 Blood Pressure 151/87 H 159/86 H 138/82 H Blood Pressure Mean 108 110 100 Pulse Ox 96 96 95 Oxygen Delivery Method Room Air Room Air Weight Weight: 58.06 kg Body Mass Index (BMI) 21.2 Physical Exam Narrative Physical exam: General: Alert, Oriented x3, appears frail, jaundiced, pale, mildly dehydrated HEENT: Atraumatic Oral: Moist Mucosa Neck: Supple Lungs: Diminished to auscultation Cardiovascular: HS I+II, regular, no murmurs Abdomen: Bowel sounds present, soft, tender abdomen especially right upper quadrant and right flank, no obvious palpable masses Extremities: No edema Skin: No rashes, No breakdown Neurological: Grossly intact Psych/Mental Status: Appropriate Results Lab / Micro Data Result Diagrams: 04/06/22 20:40 04/06/22 20:40 Labs: Laboratory Results - last 24 hr 04/06/22 20:40: WBC 9.3, RBC 3.79 L, Hgb 13.2, Hct 37.5 L, MCV 98.9 H, MCH 34.8 H, MCHC 35.2, RDW Std Deviation 51.9 H, RDW Coeff of Ad 14.2, Plt Count 387, MPV 10.2, Immature Gran % (Auto) 0.500, Neut % (Auto) 68.9, Lymph % (Auto) 18.1 L, [place] % (Auto) 11.1 H, Eos % (Auto) 0.6, Baso % (Auto) 0.8, Absolute Neuts (auto) 6.4, Absolute Lymphs (auto) 1.67, Nucleated RBC % 0 04/06/22 20:40: PT 13.2, INR 1.0 04/06/22 20:40: Sodium 135 L, Potassium 4.1, Chloride 102, Carbon Dioxide 24.0, Anion Gap 9, BUN 8, Creatinine 0.64 L, Estim Creat Clear Calc 94.50, Est GFR (MDRD) Af Amer 162, Est GFR (MDRD) Non-Af 134, BUN/Creatinine Ratio 12.5, Glucose 96, Calcium 9.1, Total Bilirubin 7.00 H, Direct Bilirubin 5.92 H, AST 83 H, ALT 157 H, Alkaline Phosphatase 964 H, Total Protein 6.5, Albumin 3.1 L, Globulin 3.4, Lipase 569 H 04/06/22 21:03: Urine Color Yellow, Urine Clarity Clear, Urine pH 6.5, Ur Specific [place] 1.015, Urine Protein 30 H, Urine Glucose (UA) Normal, Urine Ketones 50 H, Urine Occult Blood 25 H, Urine Nitrite Negative, Urine Bilirubin 6 H, Urine Urobilinogen 4 H, Ur Leukocyte Esterase 25 H Radiology Impression Abdomen/Pelvis CT 04/06/22 21:42 IMPRESSION: 1. There is a dense structure measuring 2.2 x 1.2 x 1.1 cm in the distal common bile duct associated with intra and extrahepatic biliary dilatation unchanged since the previous exam. This may be due to stones or a mass. Consider ERCP for further evaluation and treatment. 2. Diffuse gallbladder wall edema. 3. The left adrenal gland is heterogeneously enlarged measuring 3.4 x 2.3 x 3.3 cm unchanged since previous exam. Metastatic disease cannot be excluded. 4. Numerous sclerotic bone metastases unchanged. Electronically Signed: Chuckie Lainez MD at 0:19 EDT , ADDENDUM: 04/07/22 0029 IMPRESSION: 1. There is a dense structure measuring 2.2 x 1.2 x 1.1 cm in the distal common bile duct associated with intra and extrahepatic biliary dilatation unchanged since the previous exam. This may be due to stones or a mass. Consider ERCP for further evaluation and treatment. 2. Diffuse gallbladder wall edema. 3. The left adrenal gland is heterogeneously enlarged measuring 3.4 x 2.3 x 3.3 cm unchanged since previous exam. Metastatic disease cannot be excluded. 4. Numerous sclerotic bone metastases unchanged. N.B. : The above Results were Read Back by Chuckie Lainez MD to Dr. Taylor MD, and understanding confirmed on 04/07/2022 00:22:43 (ET). Electronically Signed: Chuckie Lainez MD at 0:19 EDT , Assessment & Plan Assessment/Plan (1) Common bile duct mass: (2) Jaundice: (3) Abdominal pain: PLAN: Plan 1. Acute obstructive jaundice secondary to acute common biliary mass CT of the abdomen and pelvis showed structure measuring 2.2 x 1.2 x 1.1 cm the common bile duct relative with intra and extrahepatic biliary dilatation. Admit to Med[facility], keep n.p.o., IV fluids, pain control, GI consult 2. Prostate CA, metastatic to the bone, follows with oncology in the outpatient 3. Hyponatremia likely related to dehydration, will trend 4. DVT PPx-Lovenox subcu I discussed and explained in details the various types of CODE STATUS-full code, DNR CCA, DNR CC. Patient wants to be full code and wants everything done to keep him alive including CPR and life support. Time spent discussing CODE STATUS 16 minutes Charges/Coding Visit Charges Inpatient E&M: 67925 Init Hosp L3 Procedures Hospitalists Procedures: 40873 Advncd Care Plan 30 Min
[2022-04-07] MEDS: Morphine 2 MG/ML Syringe IV ×2 (08:52→12:47)
[2022-04-07] MEDS: 0.9% Saline Lock 10 ML Syringe IV ×2 (08:53→12:47)
[2022-04-07] MEDS: Lactated Ringers 1,000 ML 125 ML IV ×3 (08:53→19:52)
--- NOTE | 2022-04-07 10:43 | EKG12_ITS ---
Test Reason : PRE OP Blood Pressure : / mmHG Vent. Rate : 063 BPM Atrial Rate : 063 BPM P-R Int : 150 ms QRS Dur : 128 ms QT Int : 404 ms P-R-T Axes : 062 031 035 degrees QTc Int : 413 ms Normal sinus rhythm Right bundle branch block Abnormal ECG Confirmed by ROYA SALDANA, WILIAM ([id number]), supervising film or videotape editor MEVLIN FELIX ([id number]) on 04/09/2022 9:15:21 AM Referred By: FENG Confirmed By:WILIAM PRYOR MD
--- NOTE | 2022-04-07 12:00 | PCM.CONS.GEN ---
Assessment & Plan Assessment/Plan (1) Common bile duct mass: PLAN: ?There is a dense structure measuring 2.2 x 1.2 x 1.1 cm in the distal common bile duct associated with intra and extrahepatic biliary dilatation unchanged since the previous exam. Diffuse gallbladder wall edema. No calcified gallstones. I suspect that this is a common bile duct stone. Although on the differential diagnosis does include a cholangiocarcinoma. There is no sign of choledocho cyst which would increase his risk of cholangiocarcinoma. It is not very common for metastatic prostate cancer to go to hepatobiliary system in particular the common bile duct. However it is still in the differential diagnosis. He will undergo an ERCP. He was explained alternatives, risk, benefits including outstanding bleeding, infection, sepsis, perforation, need for emergent . He will Have an ASA of 3. (2) Jaundice: HPI Consult Data Date of Consult: 04/07/22 HPI Narrative Reason for Consultation: jaundice HPI Narrative: CHUCKIE LOWE, is a 66 M who presents with Acute onset of jaundice. 66-year-old male with history of metastatic prostate cancer. He originally presented with an ?increased PSA 166 on November 01, 2020.? He had bone scan and CT abdomen and pelvis. Prostatic biopsy on 11/07/2020 showed Prostatic adenocarcinoma [place] 3/4. Bone scan on 11/08/2020 showed diffuse osteoblastic metastatic disease in appendicular and axial skeletal structures with involvement of the skull.? CT abdomen and pelvis on 11/01/2020 showed prostatic enlargement, mildly enlarged retroperitoneal nodes, adrenal nodules, multiple sclerotic bone lesions.? He was started on LHRH agonist injection and Casodex by Dr. Rebolledo and then referred for chemotherapy. He declined chemotherapy and prophylactic bone absorptive therapy. He remains on LHRH agonist.? Comes for follow up because of abdominal pain, poor appetite, to Amoxicillin for teeth infection. He is seen by Dr. Enrique.? He was seen for similar presentation on March 30.? CAT scan revealed bilateral small pleural effusions, intra ductal dilatation due to obstruction and metastatic blastic lesion that was noted on prior.? The intraductal dilatation is worse than what was noted on prior images. Patient denies fever or chills.? Patient denies night sweats.? Patient denies headache, ocular, visual or auditory symptoms other than his eyes being yellow.? He denies cough or shortness of breath.? He denies dyspnea on exertion.? He denies orthopnea or PND.? He does report abdominal discomfort with distention.? He denies history of alcohol use.? He denies history of drug use.? He is a smoker. He does report dark-colored urine.? His stool is still brown.? He denies black or maroon-colored stool.? He denies blood in his stool.? He denies dysuria, frequency or urgency. His repeat CT scan on April 06, 2022 shows continued ductal dilation along with a distal common bile duct obstruction believed to be a common bile duct stone. [facility] Medical History (Updated 04/07/22 @ 08:33 by Millie Kumar) Cancer Difficulty balancing Diverticulitis Ganglion cyst of dorsum of left wrist Limb weakness Multiple sclerosis Smoker Substance abuse Home Medications dicyclomine 20 mg tablet 20 mg PO TID PRN cramps #20 tabs 03/30/22 [Rx Last Taken Unknown] ondansetron 4 mg disintegrating tablet 4 mg PO Q8H PRN nausea and vomiting #10 tabs 03/30/22 [Rx Last Taken Unknown] Allergy/AdvReac Type Severity Reaction Status Date / Time No Known Allergies Allergy Verified 04/06/22 19:56 Family History Father Lung cancer Mother Hypertension Gout Uncle Pancreatic cancer maternal Lung cancer paternal Surgical History (Updated 04/07/22 @ 08:34 by Millie Kumar) History of microdiscectomy History of rotator cuff surgery Hx of prostate biopsy Previous back surgery Social History (Updated 04/07/22 @ 08:[address] Angelica Mcfarland MD) household members: spouse and family Smoking Status: Current every day smoker tobacco type: cigarettes alcohol intake: never substance use type: does not use ROS ROS Narrative Constitutional: Reports: Malaise, Weakness, Fatigue. Denies: Anorexia, Chills, Fever, Night Sweats, Weight Change Eyes: Denies: Blurred vision, Cataracts, Conjunctivae Inflammation, Pain, Redness, Vision Change HEENT: Denies: Difficulty Hearing, Difficulty Swallowing, Head Aches, Hearing Changes, Sinus Congestion, Sinus Drainage Cardiovascular: Denies: Chest Pain, Orthopnea, Palpitations Respiratory: Denies: Cough, Shortness of breath at rest, Sputum production Gastrointestinal: See HPI Genitourinary: Denies: Dysuria Musculoskeletal: Denies: Joint Pain, Joint stiffness, Joint swelling, Joint Tenderness Skin: Denies: Rash, Wounds Neurological: Denies: Numbness, Tingling, Focal weakness Physical Exam Narrative Physical exam: General: Alert, Oriented x3, appears frail, jaundiced, pale, mildly dehydrated HEENT: Atraumatic Oral: Moist Mucosa Neck: Supple Lungs: Diminished to auscultation Cardiovascular: HS I+II, regular, no murmurs Abdomen: Bowel sounds present, soft, tender abdomen especially right upper quadrant and right flank, no obvious palpable masses Extremities: No edema Skin: No rashes, No breakdown Neurological: Grossly intact Psych/Mental Status: Appropriate Lab / Micro Data Result Diagrams: 04/06/22 20:40 04/06/22 20:40 Labs: Laboratory Results - last 24 hr 04/06/22 20:40: WBC 9.3, RBC 3.79 L, Hgb 13.2, Hct 37.5 L, MCV 98.9 H, MCH 34.8 H, MCHC 35.2, RDW Std Deviation 51.9 H, RDW Coeff of Ad 14.2, Plt Count 387, MPV 10.2, Immature Gran % (Auto) 0.500, Neut % (Auto) 68.9, Lymph % (Auto) 18.1 L, [place] % (Auto) 11.1 H, Eos % (Auto) 0.6, Baso % (Auto) 0.8, Absolute Neuts (auto) 6.4, Absolute Lymphs (auto) 1.67, Nucleated RBC % 0 04/06/22 20:40: PT 13.2, INR 1.0 04/06/22 20:40: Sodium 135 L, Potassium 4.1, Chloride 102, Carbon Dioxide 24.0, Anion Gap 9, BUN 8, Creatinine 0.64 L, Estim Creat Clear Calc 94.50, Est GFR (MDRD) Af Amer 162, Est GFR (MDRD) Non-Af 134, BUN/Creatinine Ratio 12.5, Glucose 96, Calcium 9.1, Total Bilirubin 7.00 H, Direct Bilirubin 5.92 H, AST 83 H, ALT 157 H, Alkaline Phosphatase 964 H, Total Protein 6.5, Albumin 3.1 L, Globulin 3.4, Lipase 569 H 04/06/22 21:03: Urine Color Yellow, Urine Clarity Clear, Urine pH 6.5, Ur Specific [place] 1.015, Urine Protein 30 H, Urine Glucose (UA) Normal, Urine Ketones 50 H, Urine Occult Blood 25 H, Urine Nitrite Negative, Urine Bilirubin 6 H, Urine Urobilinogen 4 H, Ur Leukocyte Esterase 25 H Radiology Impression Abdomen/Pelvis CT 04/06/22 21:42 IMPRESSION: 1. There is a dense structure measuring 2.2 x 1.2 x 1.1 cm in the distal common bile duct associated with intra and extrahepatic biliary dilatation unchanged since the previous exam. This may be due to stones or a mass. Consider ERCP for further evaluation and treatment. 2. Diffuse gallbladder wall edema. 3. The left adrenal gland is heterogeneously enlarged measuring 3.4 x 2.3 x 3.3 cm unchanged since previous exam. Metastatic disease cannot be excluded. 4. Numerous sclerotic bone metastases unchanged. Electronically Signed: Chuckie Lainez MD at 0:19 EDT , ADDENDUM: 04/07/22 0029 IMPRESSION: 1. There is a dense structure measuring 2.2 x 1.2 x 1.1 cm in the distal common bile duct associated with intra and extrahepatic biliary dilatation unchanged since the previous exam. This may be due to stones or a mass. Consider ERCP for further evaluation and treatment. 2. Diffuse gallbladder wall edema. 3. The left adrenal gland is heterogeneously enlarged measuring 3.4 x 2.3 x 3.3 cm unchanged since previous exam. Metastatic disease cannot be excluded. 4. Numerous sclerotic bone metastases unchanged. N.B. : The above Results were Read Back by Chuckie Lainez MD to Dr. Taylor MD, and understanding confirmed on 04/07/2022 00:22:43 (ET). Electronically Signed: Chuckie Lainez MD at 0:19 EDT , Charges/Coding Visit Charges Inpatient E&M: 27331 Init Hosp L2
--- NOTE | 2022-04-07 15:04 | RAD_ITS ---
EXAM: INTRAOPERATIVE CHOLANGIOGRAM FLUOROSCOPY TIME: 14.6Seconds RADIATION DOSE: 3.1 mGy TOTAL NUMBER OF IMAGES: 1 COMPARISON: None. PROVIDED CLINICAL HISTORY: STONES PAIN TECHNIQUE: The examination was performed with physician in attendance. Under fluoroscopic observation, fluoroscopic images were obtained in the operating room. FINDINGS: First image demonstrates surgical instruments overlying the [id number]. Contrast is identified in a cannulated common bile duct. Retrograde contrast is notseen in the pancreatic duct. Contrast is seen in the intrahepatic ducts. RAD/ERCP Biliary Only IMPRESSION: Fluoroscopic assistance images were obtained. Pertinent findings noted above. Electronically Signed: Gwyn Astudillo MD at 17:39 EDT ,
--- NOTE | 2022-04-07 15:30 | FLU_PTH ---
PATIENT: MISTI LOWE LOC: MS3 U#:[id number] AGE/SX: 66/M ROOM: [facility] [place]: Dr. Angelica Mcfarland MD : [id number] BED: 1 DIS: 04/08/2022 SPEC #: [id number] RECD: 04/07/22 16:27 STATUS: VANNA REQ #: [id number] ROCAEL: 04/07/22 15:[address]: Willie Law DEPT: CYTOLOGY RECD BY: Kasey Robertson ENTERED: 04/08/22 10:47 SP TYPE: Fluid OTHR DR: MD Dr. Madhavi Parikh, Tissues: A - Bile duct, NOS B - Bile duct, NOS C - Bile duct, NOS Procedures: Special Stain Group II Surgery Specimen Level IV Cytospin Fluid Cytology Other Comments: @ Ordering doctor for SSII edited from to @ by MANDO at 04/08/22 1451 @ Ordering doctor for SUIV edited from to @ by MANDO at 04/08/22 1451 @ Ordering doctor for CYSPIN edited from to @ by MANDO at 04/08/22 1451 @ Ordering doctor for CYOTHER edited from to @ by MANDO at 04/08/22 1451 @ Submitting doctor edited from to @ by RGOOD at 04/08/22 1451 HEADER OPERATION: ERCP with brushings, stent placement and dilation PRE-OP DIAGNOSIS: Common bile duct mass, jaundice, abdominal pain TISSUE SUBMITTED: A ? Biliary stricture brushings x3 smears, B - Biliary stricture brush tip, C - Biliary stricture fluid DIAGNOSIS CYTOLOGY A. Biliary stricture brushings (smears): Negative for malignant cells. B. Biliary stricture brush tip (cytospin and cell block): Negative for malignant cells. C. Biliary stricture fluid (cytospin and cell block): Negative for malignant cells. SJ:lucinda 04/09/2022 COMMENT Clinical correlation and appropriate follow up are necessary. CYTOLOGY STUDY Slides are reviewed. CYTOLOGY GROSS A - Received are three smears labeled with the patient's name and designated per the requisition as Biliary stricture. Submitted for staining. B - Received is a metallic endoscopic cytobrush with adherent minute fragments of meade-red tissue brush in 2 ml of clear red fluid and labeled with the patient's name and and designated per the requisition as brush. The material is dislodged from the brush and submitted for cytology preparation including cell block. C - Received is 30 ml of cloudy meade fluid labeled with the patient's name and and designated per the requisition as Biliary stricture. Submitted for cytology preparation including cell block. / lucinda 04/08/2022 TC:5 CPT: 71905 x2, 23534 x2, 05304
--- NOTE | 2022-04-07 16:15 | OP.ERCP_ITS ---
Patient Name: Chuckie Garza Procedure Date: 04/07/2022 2:59 PM Date of : 1955 Age: 66 Procedure: ERCP Indications: Jaundice Providers: Willie Law DO Medicines: Monitored Anesthesia Care Patient Profile: This is a 66 year old male. Refer to note in patient chart for documentation of history and physical. Patient has symptoms. This patient has no history of previous ERCP. Complications: No immediate complications. Procedure: Pre-Anesthesia Assessment: - Prior to the procedure, a History and Physical was performed, and patient medications and allergies were reviewed. The risks and benefits of the procedure and the sedation options and risks were discussed with the patient. All questions were answered and informed consent was obtained. Patient identification and proposed procedure were verified by the physician in the pre-procedure area. Mental Status Examination: alert and oriented. Airway Examination: normal oropharyngeal airway and neck mobility. Respiratory Examination: clear to auscultation. CV Examination: normal. Prophylactic Antibiotics: The patient does not require prophylactic antibiotics. Prior Anticoagulants: The patient has taken no previous anticoagulant or antiplatelet agents. ASA Grade Assessment: II - A patient with mild systemic disease. After reviewing the risks and benefits, the patient was deemed in satisfactory condition to undergo the procedure. The anesthesia plan was to use moderate sedation / analgesia (conscious sedation). Immediately prior to administration of medications, the patient was re-assessed for adequacy to receive sedatives. The heart rate, respiratory rate, oxygen saturations, blood pressure, adequacy of pulmonary ventilation, and response to care were monitored throughout the procedure. The physical status of the patient was re-assessed after the procedure. After obtaining informed consent, the scope was passed under direct vision. Throughout the procedure, the patient's blood pressure, pulse, and oxygen saturations were monitored continuously. The [id number] endoscope was introduced through the mouth, and advanced to the duodenum and used to inject contrast into the bile duct. The ERCP was accomplished without difficulty. The patient tolerated the procedure well. Scope In: 3:27:56 PM Scope Out: 3:57:40 PM Total Procedure Duration Time 0 hours 29 minutes 44 seconds Findings: The obstetrical anesthesiologist film was normal. The esophagus was successfully intubated under direct vision. The scope was advanced to a normal major papilla in the descending duodenum without detailed examination of the pharynx, larynx and associated structures, and upper GI tract. The upper GI tract was grossly normal. The bile duct was deeply cannulated. Contrast was injected. I personally interpreted the bile duct images. There was brisk flow of contrast through the ducts. Opacification of the entire biliary tree except for the cystic duct and gallbladder was successful. The maximum diameter of the ducts was 10 mm. The lower third of the main bile duct was completely obstructed by a narrowing that did not appear to be a stone or a mass. Opacification of the main bile duct was successful. The maximum diameter of the ducts was 10 mm. The middle third of the main bile duct contained a single segmental stenosis 6 mm in length. The upper third of the main bile duct was moderately dilated, secondary to a stricture. The largest diameter was 12 mm. A straight Roadrunner wire was passed into the biliary tree. A 5 mm biliary sphincterotomy was made with a monofilament traction (standard) sphincterotome using ERBE electrocautery. The sphincterotomy oozed blood. The biliary tree was swept with a 15 mm balloon starting at the bifurcation. Sludge was swept from the duct. All stones were removed. Dilation of the common bile duct with an 8-9-10 mm balloon (to a maximum balloon size of 8 mm) dilator was successful. One 10 Fr by 12 cm temporary stent was placed 5 cm into the common bile duct. Bile flowed through the stent. The stent was in good position. Cells for cytology were obtained by brushing in the entire biliary tree. Impression: - A biliary tract obstruction was found in the lower third of the main duct. 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 - The upper third of the main bile duct was moderately dilated, secondary to a stricture. - Choledocholithiasis with an obstruction was found. Complete removal was accomplished by biliary sphincterotomy and balloon extraction. - A biliary sphincterotomy was performed. - The biliary tree was swept. - Common bile duct was successfully dilated. - One temporary stent was placed into the common bile duct. - Cells for cytology obtained in the entire biliary tree. Procedure Code(s): --- Professional --- 76226, Endoscopic retrograde cholangiopancreatography (ERCP); with placement of endoscopic stent into biliary or pancreatic duct, including pre- and post-dilation and guide wire passage, when performed, including sphincterotomy, when performed, each stent 97238, Endoscopic retrograde cholangiopancreatography (ERCP); with removal of calculi/debris from biliary/pancreatic duct(s) 59559, 26, Endoscopic catheterization of the biliary ductal system, radiological supervision and interpretation CPT copyright 2017 [employer]. All rights reserved. The codes documented in this report are preliminary and upon pipe stripper review may be revised to meet current compliance requirements. Willie Law DO 04/07/2022 4:14:55 PM This report has been signed electronically. Number of Addenda: 0 Note Initiated On: 04/07/2022 2:59 PM
--- NOTE | 2022-04-07 16:16 | OP.CCLET_ITS ---
04/07/2022 Madhavi Miramontes [address] [facility] [place] [address] Re : ERCP procedure for Chuckie Garza Dear Dr. Miramontes This procedure was performed on Thursday, April 07, 2022. My impressions and recommendations are as follows: Impressions : - A biliary tract obstruction was found in the lower third of the main duct. 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 - The upper third of the main bile duct was moderately dilated, secondary to a stricture. - Choledocholithiasis with an obstruction was found. Complete removal was accomplished by biliary sphincterotomy and balloon extraction. - A biliary sphincterotomy was performed. - The biliary tree was swept. - Common bile duct was successfully dilated. - One temporary stent was placed into the common bile duct. - Cells for cytology obtained in the entire biliary tree. Recommendations : My findings are described in the full procedure note, which is enclosed. If I can be of further assistance, please feel free to contact me at . Sincerely, Willie Law DO 04/07/2022 4:14:55 PM This report has been signed electronically.
[2022-04-08] MEDS: oxyCODONE 5 MG Tablet PO ×2 (00:58→08:01)
[2022-04-08 01:37] VITALS: BP 145/78; PULSE 78; RESP 16; TEMP 36.8; O2SAT 99
[2022-04-08] MEDS: Lactated Ringers 1,000 ML 125 ML IV (03:51)
[2022-04-08 05:37] VITALS: BP 136/67; PULSE 76; RESP 16; TEMP 36.6; O2SAT 98
[2022-04-08 06:18] LABS: Absolute Lymphocyte Count 1.22 X10^3/uL (0.83-4.51); Absolute Neutrophil Count 9.7 X10^3/uL (2.0-7.7); Basophil# 0.05 X10^3/uL; Basophil% 0.4 % (0-1); Eosinophil# 0.07 X10^3/uL; Eosinophils% 0.6 % (0-5); Hematocrit 34.3 % (40-54); Hemoglobin 12.4 g/dL (13.0-16.5); Lymphocyte # 1.22 X10^3/ul (0.83-4.51); Mean Corp Hgb Conc 36.2 g/dL (32-36); Mean Corpuscular Hgb 34.7 pg (27.0-32.0); Mean Corpuscular Volume 96.1 fL (80-94); Mean Platelet Vol. 10.3 fl (6.2-12.0); Monocyte# 1.05 X10^3/uL; Monocyte% 8.6 % (0-10); NRBC Flagged by Analyzer 0 % (0-5); Neutrophil # 9.72 X10^3/uL (2.7-7.7); Neutrophil % 79.9 % (47-70); Platelet Count 372 K/mm3 (150-450); RBC Distribution Width CV 14.4 % (11.6-14.6); RBC Distribution Width SD 50.1 fl (35.1-43.9); Red Blood Count 3.57 M/mm3 (4.6-6.2); White Blood Count 12.2 K/mm3 (4.4-11.0)
[2022-04-08 06:41] LABS: International Normalized Ratio 1.1; Prothrombin Time (Protime)PT. 13.5 SECONDS (11.7-14.9)
[2022-04-08 07:05] LABS: ALB/GLOB Ratio 0.9 RATIO (0.9-2.4); AST(SGOT) 48 U/L (15-37); Alanine Aminotransfer ALT/SGPT 112 U/L (16-61); Albumin, Serum 2.8 g/dL (3.2-5.0); Alkaline Phosphatase 978 U/L (45-117); Anion Gap 7 (5-15); BUN 13 mg/dL (7-18); BUN/Creat Ratio 23.6 RATIO (10-20); Calcium,Total 8.7 mg/dL (8.5-10.1); Chloride 100 mmol/L (98-107); Creatinine, Serum 0.55 mg/dL (0.70-1.30); EST Glomerular Filtration Rate 159 mL/min (>60); Est Glom Filt Rate - Afr Amer 192 mL/min (>60); Estimated Creatinine Clearance 106.82 ml/min; Globulin 3.2 g/dL (2.2-4.2); Glucose 92 mg/dL (74-106); Potassium 3.9 mmol/L (3.5-5.1); Sodium Level 132 mmol/L (136-145)
[2022-04-08 07:54] VITALS: BP 162/82; PULSE 66; RESP 18; TEMP 37; O2SAT 97
[2022-04-08] MEDS: Senna/Docusate Sodium 1 Tablet 2 TABLET PO (08:01)
--- NOTE | 2022-04-08 08:30 | PCM.PROGNOTE ---
Subjective Subjective Patient underwent ERCP yesterday and was abdominal pain was completely resolved. He is tolerating a diet with his at the bedside. Objective Data Objective Data Vital Signs: Vital Signs Temp Pulse Resp BP Pulse Ox O2 Del Method 98.0 F 72 18 148/78 H 98 Room Air 04/08/22 14:13 04/08/22 14:13 04/08/22 14:13 04/08/22 14:13 04/08/22 14:13 04/08/22 14:13 Oxygen Delivery Method Room Air Weight: 124 lb 5.451 oz Body Mass Index (BMI) 20.8 Intake & Output: Intake and Output for Last 24 Hours 04/06/22 04/07/22 04/08/22 23:59 23:59 23:59 Intake Total 1481.25 / 1481.25 2122.92 / 2122.92 Balance 1481.25 / 1481.25 2122. / 2121. Lab / Micro Data Result Diagrams: 04/08/22 05:45 04/08/22 05:45 Labs: Laboratory Results - last 24 hr 04/08/22 05:45: WBC 12.2 H, RBC 3.57 L, Hgb 12.4 L, Hct 34.3 L, MCV 96.1 H, MCH 34.7 H, MCHC 36.2 H, RDW Std Deviation 50.1 H, RDW Coeff of Ad 14.4, Plt Count 372, MPV 10.3, Immature Gran % (Auto) 0.500, Neut % (Auto) 79.9 H, Lymph % (Auto) 10.0 L, [place] % (Auto) 8.6, Eos % (Auto) 0.6, Baso % (Auto) 0.4, Absolute Neuts (auto) 9.7 H, Absolute Lymphs (auto) 1.22, Nucleated RBC % 0 04/08/22 05:45: PT 13.5, INR 1.1 04/08/22 05:45: Sodium 132 L, Potassium 3.9, Chloride 100, Carbon Dioxide 25.0, Anion Gap 7, BUN 13, Creatinine 0.55 L, Estim Creat Clear Calc 106.82, Est GFR (MDRD) Af Amer 192, Est GFR (MDRD) Non-Af 159, BUN/Creatinine Ratio 23.6 H, Glucose 92, Calcium 8.7, Total Bilirubin 2.90 H, AST 48 H, ALT 112 H, Alkaline Phosphatase 978 H, Total Protein 6.0 L, Albumin 2.8 L, Globulin 3.2, Albumin/Globulin Ratio 0.9 Radiography Diagnostic Testing: Radiology Impression ERCP X-Ray 04/07/22 15:04 IMPRESSION: Fluoroscopic assistance images were obtained. Pertinent findings noted above. Electronically Signed: Gwyn Astudillo MD at 17:39 EDT , Physical Exam Narrative Physical exam: General: Alert, Oriented x3, appears frail, jaundiced, pale HEENT: Atraumatic Oral: Moist Mucosa Neck: Supple Lungs: Diminished to auscultation Cardiovascular: HS I+II, regular, no murmurs Abdomen: Bowel sounds present, soft, tender abdomen especially right upper quadrant and right flank, no obvious palpable masses Extremities: No edema Skin: No rashes, No breakdown Neurological: Grossly intact Psych/Mental Status: Appropriate Assessment & Plan Assessment/Plan (1) Common bile duct mass: PLAN: Patient still choledocholithiasis and was identified as having a mid to distal common bile duct stricture. Brushings were taken and the stricture was dilated. A 10 Romansh by 12cm was placed into the common bile duct along with good drainage. A CA 19-9 that was sent and is pending. He can follow-up as an outpatient for the rest of the work-up. Will likely need to spyglass in order to have the rectal biopsies. Charges/Coding Visit Charges Inpatient E&M: 49445 Subs Hosp L2
--- NOTE | 2022-04-08 09:30 | CASEMGMT ---
RN CM Face to Face with patient for initial transition planning/care coordination assessment. RN CM introduced self and role at [facility]. Patient lying in bed, alert and oriented. Patient willing to participate in assessment and is able to answer all questions appropriately. Care providers, pharmacy, and demographics verified. Patient wishes to discharge home, denies need for home health at this time. Patient states he has no further needs or concerns at this time. CM to follow for discharge planning needs that may arise. PCP: Fe Specialists: Iva, oncologist Preferred Pharmacy: [facility] Insurance: [employer] Prescription Benefit: yes Living Will/HPOA: yes, Jacqui Garza LNOK: Living Arrangements: Patient lives with in a 1.5 story home with bed and bath on first floor. Patient states she is independent at home. Transportation: self, DME/HHC: Patient denies DME in the home. No previous HHC. Patient states he smokes 1/2 pack of cigarettes per day. Patient interested in quitting and information provided regarding [facility] Tobacco Cessation Program. Disposition Plan: Patient to discharge home with family support and follow-up plans in place. Celi RAMIREZ, RN, CM
--- NOTE | 2022-04-08 09:49 | DCINST_ITS ---
Discharge Instructions Diet Discharge Diet: No restrictions Activity Discharge Activity: Return to Normal Activity Follow Up Care Test Results: Test results from this visit will be discussed in further detail at your follow- up appointment, if applicable. Discharge Plan Admission Admit Date/Time: 04/07/22 07:20 Primary Reason for Your Visit: Biliary obstruction Attending Provider: Angelica Mcfarland Primary Care Provider: Madhavi Miramontes Instructions Additional Instructions / Restrictions: Complete your antibiotics as prescribed. Continue to follow-up with your oncologist and GI as scheduled. Follow-up with your primary care doctor within 1 week. You will need repeat blood work to follow-up on new liver enzymes within a week Discharge Orders/Prescriptions Prescriptions: New metronidazole 500 mg tablet 500 mg PO TID 7 Days Qty: 21 0RF ciprofloxacin HCl [Cipro] 500 mg tablet 500 mg PO BID 7 Days Qty: 14 0RF ciprofloxacin HCl 500 mg tablet 500 mg PO BID 7 Days Qty: 14 0RF Continued dicyclomine 20 mg tablet 20 mg PO TID PRN (Reason: cramps) Qty: 20 0RF ondansetron 4 mg tablet,disintegrating 4 mg PO Q8H PRN (Reason: nausea and vomiting) Qty: 10 0RF Referrals / Follow Up: Bashir Enrique MD [NON-STAFF] - Within 2 Weeks Madhavi Miramontes DO [Primary Care Provider] - Within 1 Week Willie Law DO [STAFF PHYSICIAN] - Within 2 Weeks Disposition Disposition (needs filled in before D/C Order can be placed): Home, Self Care
--- NOTE | 2022-04-08 09:49 | PCM.DC.SUM ---
Providers Date of Admission: 04/07/22 Date of Discharge: 04/08/22 Primary Care Physician: Dr. Madhavi Miramontes, DO Consultations 04/07/22 08:17 Consult: Gastroenterology Routine Consulting Provider: [facility] Reason for Consult: Obstructive jaundice EMERGENT Consult: No MD Notified: Yes Date Notified: 04/07/22 Time Notified: 08:01 Method of Notification: Verbal Reason For Visit: BILIARY OBSTRUCTION Diagnosis Discharge Diagnosis (1) Common bile duct mass: Status: Acute Code(s): K83.8 - Other specified diseases of biliary tract (2) Jaundice: Status: Acute Code(s): R17 - Unspecified jaundice Medications at Discharge Home Medications dicyclomine 20 mg tablet 20 mg PO TID PRN cramps #20 tabs 03/30/22 ondansetron 4 mg disintegrating tablet 4 mg PO Q8H PRN nausea and vomiting #10 tabs 03/30/22 ciprofloxacin HCl 500 mg tablet 500 mg PO BID 7 days #14 tabs 04/08/22 ciprofloxacin HCl 500 mg tablet (Cipro) 500 mg PO BID 7 days #14 tabs 04/08/22 metronidazole 500 mg tablet 500 mg PO TID 7 days #21 tabs 04/08/22 Hospital Course Operations None Procedures - (ERCP 04/07/22) Summary of Care Provided Minutes Spent on Discharge: 40 Hospital Course: 66-year-old male with past medical history of metastatic prostate CA, follows with oncology in the outpatient, comes in with an abnormal imaging showing a common bile duct mass found on work-up for abdominal pain. Patient stated that he had noticed that he was jaundiced a couple of days prior to admission. He had associated abdominal discomfort worse in the right posterior flank region extending across the back and down. This was associated with nausea and vomiting. He also has severe pain with eating. He had not been able to eat since a day prior to admission. His urine was dark and stools were pale. His admitting labs showed WBC 5.92, AST 83, total bilirubin was 7.0, direct bilirubin 5.92, ALT 157, ALP 964, albumin 3.1, lipase 569.? UA is unremarkable. CT abdomen and pelvis showed evidence of a structure measuring 2.2 x 1.2 x 1.1 cm in the distal common bile duct associated with intra and extrahepatic biliary dilatation, diffuse gallbladder wall edema. Gastroenterology was consulted from the ED. Patient was admitted to the [facility] floor, IV fluids and received pain medications. He underwent ERCP on 04/07/22 showed biliary stricture in the middle third of the main bile duct, that was malignant appearing. The upper third of the main bile duct was moderately dilated secondary to the stricture. Patient also had choledocholithiasis with an obstruction found. Patient underwent biliary sphincterectomy with biliary tree sweeping. Common bile duct was successfully dilated, a temporary stent was placed into the common bile duct. Cells for cytology obtained the entire biliary tree. Postprocedure, patient liver function tests appear to have improved. Her bilirubin was 2.90 from 7.0. Patient to follow-up with gastroenterology and oncology in the outpatient. Physical Exam Narrative Physical exam: General: Alert, Oriented x3, appears frail, jaundiced, pale HEENT: Atraumatic Oral: Moist Mucosa Neck: Supple Lungs: Diminished to auscultation Cardiovascular: HS I+II, regular, no murmurs Abdomen: Bowel sounds present, soft, tender abdomen especially right upper quadrant and right flank, no obvious palpable masses Extremities: No edema Skin: No rashes, No breakdown Neurological: Grossly intact Psych/Mental Status: Appropriate Weight / BMI Weight Weight: 56.4 kg Body Mass Index (BMI) 20.8 ABG / Lab / Microbiology Data Result Diagrams: 04/08/22 05:45 04/08/22 05:45 Laboratory: Laboratory Results - last 24 hr 04/08/22 05:45: WBC 12.2 H, RBC 3.57 L, Hgb 12.4 L, Hct 34.3 L, MCV 96.1 H, MCH 34.7 H, MCHC 36.2 H, RDW Std Deviation 50.1 H, RDW Coeff of Ad 14.4, Plt Count 372, MPV 10.3, Immature Gran % (Auto) 0.500, Neut % (Auto) 79.9 H, Lymph % (Auto) 10.0 L, [place] % (Auto) 8.6, Eos % (Auto) 0.6, Baso % (Auto) 0.4, Absolute Neuts (auto) 9.7 H, Absolute Lymphs (auto) 1.22, Nucleated RBC % 0 04/08/22 05:45: PT 13.5, INR 1.1 04/08/22 05:45: Sodium 132 L, Potassium 3.9, Chloride 100, Carbon Dioxide 25.0, Anion Gap 7, BUN 13, Creatinine 0.55 L, Estim Creat Clear Calc 106.82, Est GFR (MDRD) Af Amer 192, Est GFR (MDRD) Non-Af 159, BUN/Creatinine Ratio 23.6 H, Glucose 92, Calcium 8.7, Total Bilirubin 2.90 H, AST 48 H, ALT 112 H, Alkaline Phosphatase 978 H, Total Protein 6.0 L, Albumin 2.8 L, Globulin 3.2, Albumin/Globulin Ratio 0.9 Radiography Diagnostic Testing: Radiology Impression ERCP X-Ray 04/07/22 15:04 IMPRESSION: Fluoroscopic assistance images were obtained. Pertinent findings noted above. Electronically Signed: Gwyn Astudillo MD at 17:39 EDT Reading Location ID and State[facility] [place] , Service support , D/C Instructions Discharge Diet: No restrictions Meaningful Use Info Meaningful Use Diagnoses (Choose all that apply): None applicable Discharge Plan Admission Admit Date/Time: 04/07/22 07:20 Primary Reason for Your Visit: Biliary obstruction Attending Provider: Angelica Mcfarland Primary Care Provider: Madhavi Miramontes Instructions Additional Instructions / Restrictions: Complete your antibiotics as prescribed. Continue to follow-up with your oncologist and GI as scheduled. Follow-up with your primary care doctor within 1 week. You will need repeat blood work to follow-up on new liver enzymes within a week Discharge Orders/Prescriptions Prescriptions: New metronidazole 500 mg tablet 500 mg PO TID 7 Days Qty: 21 0RF ciprofloxacin HCl [Cipro] 500 mg tablet 500 mg PO BID 7 Days Qty: 14 0RF ciprofloxacin HCl 500 mg tablet 500 mg PO BID 7 Days Qty: 14 0RF Continued dicyclomine 20 mg tablet 20 mg PO TID PRN (Reason: cramps) Qty: 20 0RF ondansetron 4 mg tablet,disintegrating 4 mg PO Q8H PRN (Reason: nausea and vomiting) Qty: 10 0RF Referrals / Follow Up: Bashir Enrique MD [NON-STAFF] - Within 2 Weeks Fe,Madhavi, DO [Primary Care Provider] - Within 1 Week Willie Law DO [STAFF PHYSICIAN] - Within 2 Weeks Disposition Disposition (needs filled in before D/C Order can be placed): Home, Self Care Charges/Coding Visit Charges Inpatient E&M: 17920 Disch Hosp
[2022-04-08] MEDS: Ciprofloxacin 400 MG/200 ML BAG 200 MG IV (10:27)
[2022-04-08] MEDS: metroNIDAZOLE 500 MG/100 ML BAG 100 MG IV (11:49)
[2022-04-08 14:13] VITALS: BP 148/78; PULSE 72; RESP 18; TEMP 36.7; O2SAT 98
[2022-04-09 08:48] LABS: Carbohydrate AG 19-9 57 U/mL (0-35)
[2022-04-09 08:55] LABS: AFP, Tumor Marker 3.1 ng/mL (0.0-8.4)
== END 2022-04-08 14:30 | disposition home or self-care (01) | DRG 445 ==
LOC: ED 04-07 07:19 → MS3 04-07 07:41
PROVIDERS: Internal Medicine Gastroenterology; Admitting Provider Internal Medicine; Emergency Provider Emergency Medicine; PCP Internal Medicine; Visit Provider Internal Medicine
PROC: 0FC98ZZ Extirpation of Matter from Common Bile Duct, Via Natural or Artificial Opening Endoscopic (ICD-10-PCS; CPT 43260; principal; 2022-04-07 15:10)
DX: K80.51 Calculus of bile duct without cholangitis or cholecystitis with obstruction (principal); C79.51 Secondary malignant neoplasm of bone; E87.1 Hypo-osmolality and hyponatremia; R17 Unspecified jaundice; C61 Malignant neoplasm of prostate; E86.0 Dehydration; G35 Multiple sclerosis; F17.210 Nicotine dependence, cigarettes, uncomplicated; Z79.899 Other long term (current) drug therapy
CPT/HCPCS: 36415; 74177; 74328; 76000; 80048; 80053; 80076; 81002; 82105; 82378; 83690; 85025; 85610; 86301; 88108; 88161; 88305; 88313; 93005; 97161; 97165; 97166; 97802; 99284; 99406; J7120; Q9967; A4216; C1726; J0744; J2405

== ENCOUNTER 2022-04-14 09:56 | Inpatient (IN) | payer OTHER, MEDICARE, SELFPAY ==
[2022-04-14 09:57] VITALS: BP 130/79; PULSE 74; RESP 24; TEMP 36.4; O2SAT 100; BMI 21.2
--- NOTE | 2022-04-14 10:17 | CT_ITS ---
STUDY: CT ABDOMEN AND PELVIS WITH CONTRAST REASON FOR EXAM: Male, 66 years old. Abdominal pain WITH PROSTATE CANCER WITH METS TO BONE AND BILE DUCT MASS WITH RECENT STENT PLACEMENT RADIATION DOSAGE (If Supplied By Facility): CTDIvol = ( 11.29 ) mGy, DLP = ( 288.78 ) mGycm TECHNIQUE: Transaxial images were obtained from the dome of the diaphragm to the symphysis pubis without oral contrast. IV 100mL [id number] was administered. Sagittal and coronal images were reconstructed. Individualized dose optimization techniques were used for this CT. COMPARISON: Comparison is made with prior study 04/06/2022. FINDINGS: Minimal increased linear markings at the lung bases suggestive of atelectasis. The visualized portions of the heart are within normal limits. There is dilated intrahepatic biliary ducts. A biliary stent is seen within the common bile duct with the distal tip in the second portion of the duodenum and the proximal tip in the right intrahepatic biliary ducts. Normal gallbladder and extrahepatic biliary system. Normal spleen. Normal pancreas. Stable 3.4 cm x 3 cm heterogeneous soft tissue mass in the left adrenal gland. Normal right kidney. Normal left kidney. Normal visualized stomach. Normal small intestine. Large amount of fecal material is seen throughout the colon. Sigmoid diverticulosis. The appendix is visualized and appears normal. There is diffuse atherosclerotic calcification of the abdominal aorta, without a demonstrated aneurysm. Normal inferior vena cava. Normal retroperitoneum. Normal urinary bladder. There is enlargement of the prostate gland. Central prostatic calcifications. Normal abdominal wall. 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 CT/Abdomen/Pelvis W IV Cont ONLY IMPRESSION: Large amount of fecal material is seen in the colon. Sigmoid diverticulosis. Biliary stent is seen with the proximal tip in the right intrabiliary duct and distal tip in the second portion of the duodenum. Diffuse sclerotic metastasis. Electronically Signed: Gianluca Curtis MD at 12:01 EDT ,
--- NOTE | 2022-04-14 10:18 | ED.VIS.GI ---
HPI HPI - GI History of Present Illness Chief Complaint: Abd Pain Detail of Chief Complaint: Abdominal pain that he has had off and on for several months Informant: patient Narrative Narrative: Patient presents emergency department complaint of abdominal pain for several months. Patient states that he was admitted and had an ERCP about a week ago with a stent placed in his bile duct by Dr. Law. Patient was living with the pain about a 4 5 out of 10 and this morning had sudden onset of severe pain. He currently rates it a 9 or 10 out of 10. Describes the pain as wrapping from the front of the abdomen around the back. Denies nausea or vomiting. He denies diarrhea. Denies blood in stool or black tarry stool. Patient also currently being treated for stage IV prostate cancer. Patient is vegan. Patient states pain made worse by eating. Prior similar symptoms: Yes PFSH PFSH Medical History (Updated 04/14/22 @ 12:[address] Jeanette Jasmine, DO) Cancer Difficulty balancing Diverticulitis Ganglion cyst of dorsum of left wrist Limb weakness Multiple sclerosis Smoker Substance abuse Home Medications ondansetron 4 mg disintegrating tablet 4 mg PO Q8H PRN nausea and vomiting #10 tabs 03/30/22 [Rx Last Taken Unknown] ciprofloxacin HCl 500 mg tablet 500 mg PO BID 7 days #14 tabs 04/08/22 [Rx Last Taken Unknown] metronidazole 500 mg tablet 500 mg PO TID 7 days #21 tabs 04/08/22 [Rx Last Taken Unknown] Allergy/AdvReac Type Severity Reaction Status Date / Time No Known Allergies Allergy Verified 04/06/22 19:56 Family History Father Lung cancer Mother Hypertension Gout Uncle Pancreatic cancer maternal Lung cancer paternal Surgical History History of microdiscectomy History of rotator cuff surgery Hx of prostate biopsy Previous back surgery Social History (Updated 04/07/22 @ 08:[address] Angelica Mcfarland MD) household members: spouse and family Smoking Status: Current every day smoker tobacco type: cigarettes alcohol intake: never substance use type: does not use ROS ROS ED Review of Systems ROS Unobtainable: other Constitutional Constitutional ED: Reports lethargy; Denies chills, fever(s), sweats or weight loss Eyes Eyes: Denies blurry vision, change in vision or diplopia ENT ENT ED: Denies rhinorrhea or sore throat Cardiovascular Cardiovascular: Denies chest pain, orthopnea or racing heartbeat Respiratory/Chest Respiratory/Chest: Reports dyspnea and dyspnea on exertion; Denies cough, orthopnea or sputum Gastrointestinal Gastrointestinal: Reports abdominal pain; Denies diarrhea, nausea or vomiting Genitourinary Genitourinary ED: Denies dysuria, hematuria or urinary frequency Musculoskeletal Musculoskeletal: Denies arthralgias, back pain, myalgias or neck pain Integumentary Denies abscess, Abrasions or rash Neurologic Neurologic: Denies headache(s) or weakness Psychiatric Psychiatric: Denies anxiety, depression or suicidal thoughts Endocrine Endocrinology: Denies polydipsia, polyphagia or polyuria Hematologic/Lymphatic Hematologic/Lymphatic: Denies easy bleeding, easy bruising or lymphadenopathy Allergic/Immunologic Allergic/Immunologic ED: Denies mouth swelling, tongue swelling or urticaria EXAM Physical Exam Const Vital Signs: 04/14/22 09:57 Temperature 97.6 F L Temperature Source Temporal Pulse Rate 74 Respiratory Rate 24 H Blood Pressure 130/79 H Blood Pressure Mean 96 Pulse Ox 100 Oxygen Delivery Method Room Air Positive well nourished and well developed General Appearance ED: well developed and NAD HEENT Reports TM's clear and moist mucous membranes normocephalic and atraumatic; Negative for trauma or tenderness Tympanic Membrane ED: Yes TM's clear Eyes PERRL and EOMs intact bilaterally General Eye ED: Negative for pale conjunctiva or scleral icterus Neck no lymphadenopathy, supple and no JVD General: Negative for tenderness Chest Wall inspection of chest normal and palpation of chest normal Chest: Negative for tenderness Resp normal respiratory effort and clear to auscultation bilaterally Effort and Inspection: Negative for respiratory distress or pain with movement Auscultation: Negative for rhonchi, wheezes or diminished lung sounds Cardio regular rate, regular rhythm, S1 normal heart sound, S2 normal heart sound and no murmurs Peripheral Pulses: pulses 2+ throughout GI normal to inspection, nondistended, normoactive bowel sounds, soft to palpation, non-distended and no masses GI Narrative: Patient with diffuse tenderness on exam. There are some mild guarding. There is no rebound, rigidity, or peritoneal signs. Back/Spine no CVA tenderness and no thoracic nor lumbar tenderness Extremity normal to inspection General Extremety ED: Negative for edema General Extremity: Negative for edema Neuro oriented x3, CN's II-XII intact bilaterally, no sensory deficits noted and gait normal Sensorium / Orientation: awake, alert, oriented to person, oriented to place and oriented to time Motor Exam: strength 5/5 throughout and strength abnormal Psych mental status grossly normal Skin no rashes or lesions noted and no wounds MDM MDM MDM Narrative Medical decision making narrative: IV line established on arrival. Patient was given a milligram of Dilaudid IV with Zofran 4 mg IV and he had good pain relief with that. Lab work-up was significant for acute pancreatitis. Urinalysis essentially unremarkable. CT scan of the abdomen pelvis showed good position of the biliary stent. No other acute significant findings noted. This point Case will be discussed with hospitalist evaluate patient for admission for diagnosis of acute pancreatitis. Lab Data Attestation: I reviewed the patient's lab results. Labs: Laboratory Results - last 24 hr 04/14/22 04/14/22 04/14/22 10:27 10:27 10:27 WBC 8.7 RBC 3.61 L Hgb 12.6 L Hct 37.2 L MCV 103.0 H MCH 34.9 H MCHC 33.9 RDW Std Deviation 51.9 H RDW Coeff of Ad 13.6 Plt Count 477 H MPV 10.2 Immature Gran % (Auto) 0.500 Neut % (Auto) 67.4 Lymph % (Auto) 20.2 [place] % (Auto) 10.4 H Eos % (Auto) 0.8 Baso % (Auto) 0.7 Absolute Neuts (auto) 5.9 Absolute Lymphs (auto) 1.76 Nucleated RBC % 0 Sodium 135 L Potassium 4.6 Chloride 106 Carbon Dioxide 24.0 Anion Gap 5 BUN 10 Creatinine 0.67 L Estim Creat Clear Calc 90.27 Est GFR (MDRD) Af Amer 154 Est GFR (MDRD) Non-Af 127 BUN/Creatinine Ratio 15.0 Glucose 110 H Lactic Acid 1.2 Calcium 9.0 Total Bilirubin 1.40 H AST 41 H ALT 74 H Alkaline Phosphatase 856 H Total Protein 6.5 Albumin 3.3 Globulin 3.2 Albumin/Globulin Ratio 1.0 Lipase 7830 H Urine Color Urine Clarity Urine pH Ur Specific [place] Urine Protein Urine Glucose (UA) Urine Ketones Urine Occult Blood Urine Nitrite Urine Bilirubin Urine Urobilinogen Ur Leukocyte Esterase Urine RBC Urine WBC Ur Squamous Epith Cells Urine Bacteria Urine Mucus 04/14/22 11:10 WBC RBC Hgb Hct MCV MCH MCHC RDW Std Deviation RDW Coeff of Ad Plt Count MPV Immature Gran % (Auto) Neut % (Auto) Lymph % (Auto) [place] % (Auto) Eos % (Auto) Baso % (Auto) Absolute Neuts (auto) Absolute Lymphs (auto) Nucleated RBC % Sodium Potassium Chloride Carbon Dioxide Anion Gap BUN Creatinine Estim Creat Clear Calc Est GFR (MDRD) Af Amer Est GFR (MDRD) Non-Af BUN/Creatinine Ratio Glucose Lactic Acid Calcium Total Bilirubin AST ALT Alkaline Phosphatase Total Protein Albumin Globulin Albumin/Globulin Ratio Lipase Urine Color Lizeth Urine Clarity Clear Urine pH 8.0 Ur Specific [place] 1.010 Urine Protein 30 H Urine Glucose (UA) Normal Urine Ketones 50 H Urine Occult Blood 10 H Urine Nitrite Negative Urine Bilirubin 1 H Urine Urobilinogen Normal Ur Leukocyte Esterase 100 H Urine RBC 0-5 SEEN Urine WBC 10-25 SEEN Ur Squamous Epith Cells 0-5 SEEN Urine Bacteria 1+ Urine Mucus 0 SEEN Radiography Diagnostic Testing: Clinical Impression(s) from Imaging Studies Abdomen/Pelvis CT 04/14/22 10:17 IMPRESSION: Large amount of fecal material is seen in the colon. Sigmoid diverticulosis. Biliary stent is seen with the proximal tip in the right intrabiliary duct and distal tip in the second portion of the duodenum. Diffuse sclerotic metastasis. Electronically Signed: Gianluca Curtis MD at 12:01 EDT , Discharge Plan Triage Chief Complaint: Abd Pain ED Provider: Jeanette Jasmine Dx/Rx/DC Orders Clinical Impression: Abdominal pain, Acute pancreatitis Prescriptions: No Action ondansetron 4 mg tablet,disintegrating 4 mg PO Q8H PRN (Reason: nausea and vomiting) Qty: 10 0RF metronidazole 500 mg tablet 500 mg PO TID 7 Days Qty: 21 0RF ciprofloxacin HCl 500 mg tablet 500 mg PO BID 7 Days Qty: 14 0RF Primary Care Provider: Madhavi Miramontes Referrals: Madhavi Miramontes DO [Primary Care Provider] - Disposition Disposition: Acute Care Hospital [facility]
[2022-04-14] MEDS: 0.9% Normal Saline 1,000 ML 125 ML IV (10:24)
[2022-04-14] MEDS: Ondansetron 4 MG/2 ML Vial IV (10:25)
[2022-04-14] MEDS: HYDROmorphone 1 MG/ML Syringe IV ×5 (10:25→23:00)
[2022-04-14 10:40] LABS: Absolute Lymphocyte Count 1.76 X10^3/uL (0.83-4.51); Absolute Neutrophil Count 5.9 X10^3/uL (2.0-7.7); Basophil# 0.06 X10^3/uL; Basophil% 0.7 % (0-1); Eosinophil# 0.07 X10^3/uL; Eosinophils% 0.8 % (0-5); Hematocrit 37.2 % (40-54); Hemoglobin 12.6 g/dL (13.0-16.5); Lymphocyte # 1.76 X10^3/ul (0.83-4.51); Lymphocyte % 20.2 % (19-41); Mean Corp Hgb Conc 33.9 g/dL (32-36); Mean Corpuscular Hgb 34.9 pg (27.0-32.0); Mean Platelet Vol. 10.2 fl (6.2-12.0); Monocyte# 0.91 X10^3/uL; Monocyte% 10.4 % (0-10); NRBC Flagged by Analyzer 0 % (0-5); Neutrophil # 5.88 X10^3/uL (2.7-7.7); Neutrophil % 67.4 % (47-70); Platelet Count 477 K/mm3 (150-450); RBC Distribution Width CV 13.6 % (11.6-14.6); RBC Distribution Width SD 51.9 fl (35.1-43.9); Red Blood Count 3.61 M/mm3 (4.6-6.2); White Blood Count 8.7 K/mm3 (4.4-11.0)
[2022-04-14 10:56] LABS: AST(SGOT) 41 U/L (15-37); Alanine Aminotransfer ALT/SGPT 74 U/L (16-61); Albumin, Serum 3.3 g/dL (3.2-5.0); Alkaline Phosphatase 856 U/L (45-117); Anion Gap 5 (5-15); BUN 10 mg/dL (7-18); Chloride 106 mmol/L (98-107); Creatinine, Serum 0.67 mg/dL (0.70-1.30); EST Glomerular Filtration Rate 127 mL/min (>60); Est Glom Filt Rate - Afr Amer 154 mL/min (>60); Estimated Creatinine Clearance 90.27 ml/min; Globulin 3.2 g/dL (2.2-4.2); Glucose 110 mg/dL (74-106); Lipase 7830 U/L (73-393); Potassium 4.6 mmol/L (3.5-5.1); Protein, Total 6.5 g/dL (6.4-8.2); Sodium Level 135 mmol/L (136-145)
[2022-04-14 11:20] LABS: Mucous, Urine 0 SEEN /hpf (<or=2+)
[2022-04-14 11:24] LABS: Lactic Acid 1.2 mmol/L (0.4-1.9)
[2022-04-14 11:28] LABS: Color, Urine Amber (Yellow); Glucose, Dipstick Normal (Normal); Ketone-Dipstick 50 mg/dl (Negative); Leukocyte Esterase-Dipstick 100 /ul (Negative); Nitrite-Dipstick Negative (Negative); Occult Blood-Urine 10 /ul (Negative); Protein-Dipstick 30 mg/dl (Negative); Urine Clarity Clear (Clear); Urine Urobilinogen Normal (Normal)
[2022-04-14 11:42] LABS: Urine Bilirubin Dipstick 1 mg/dL (Negative)
[2022-04-14 11:43] LABS: Bacteria 1+ /hpf (None Seen); Red Blood Cells-Urine 0-5 SEEN /hpf (0-5); Squamous Epithelial Cells - UA 0-5 SEEN /hpf (0-5); White Blood Cells 10-25 SEEN /hpf (0-5)
[2022-04-14 12:24] VITALS: BP 140/86; PULSE 64; RESP 18; TEMP 36.9; O2SAT 99
[2022-04-14 12:40] VITALS: BP 140/86; PULSE 64; RESP 18; TEMP 36.9; O2SAT 99
--- NOTE | 2022-04-14 12:42 | HP.PCM.HOS_ITS ---
Documented by User: PAM MARTÍNEZ 04/14/22 16:32 HPI - General General Date of Admission: 04/14/22 Date of Service: 04/14/[address] Augusto LOWE, is a 66 M [employer] Student MISTI MYNOR, is a 66 M who presents to [facility] emergency department on 04/14/2022 for abdominal pain. Patient states that he has had this pain intermittently for several months. The patient states that he feels a tightness in his abdomen, but describes this as a sensation of distention. Patient states that his pain is actually in his bilateral flanks. On 03/30/2022, patient saw his oncologist, Dr. Enrique, for follow-up for his prostate cancer with bone mets and also reported his abdominal pain. The patient was sent to the emergency department for evaluation of the abdominal pain, and he was found to have elevated liver function tests, with AST of 80, ALT of 292, and alkaline phosphatase at 636. Bilirubin was normal, and CT showed moderate biliary ductal dilatation. The patient was referred to gastroenterology, Dr. Law, for close follow-up as an outpatient. However, on 04/06/2022 the patient developed jaundice and represented to the emergency department. Bilirubin at this time was 8 and alkaline phosphatase elevated to 964. CT at that time showed density in the distal common duct, and the patient was admitted for ERCP. This was performed on 04/07/2022 and multiple obstructions were found secondary to malignant appearing structure and choledocholithiasis. A stent was placed, and cells for cytology were obtained, which resulted as negative for malignancy. However, CEA was elevated at 46 and CA 19?9 antigen at 57. Today the patient developed a sudden increase in his flank pain that he rated as 10 out of 10 and presented again to the emergency department. Patient reports feeling short of breath related to the abdominal distention at times, feel like I cannot take a deep breath. Patient states he is also been having hiccups frequently. The patient denies nausea, vomiting, fever, or chills. His last meal was mashed potatoes last night and juice this morning. Patient states prior to arrival that he was having a decreased appetite, but now that his pain is controlled this is improving. Patient reports irregular/small bowel movements for months, but denies diarrhea. On arrival to the emergency department, the patient's vital signs were temperature of 97.6, blood pressure 130/79, pulse of 74, respirations of 24, and oxygen saturation 100% on room air. CBC demonstrates macrocytic anemia with hemoglobin 12.6, up from 04/08 at 12.4. Otherwise, platelets at 477. Chemistry shows low creatinine at 0.67, which is consistent with previous admission. Prior creatinines appear to range from 0.72 to 0.92. Liver function tests have all improved from patient's recent discharge with AST of 41, ALT of 74, alkaline phosphatase of 856, and total bilirubin of 1.4. However patient's lipase is 7830, increased from 569 on 04/06. Urinalysis shows 1+ bacteria, WBCs, leukocyte esterases, but is negative for nitrites. CT of the pelvis does show large amount of stool, presence of biliary stent, and known sclerotic metastasis. The patient was given Zofran and Dilaudid. The patient will be admitted to the medical surgical floor for continued management. Case was discussed with Dr. Law by Dr. Cassa. [facility] Medical History Cancer Common bile duct mass Difficulty balancing Diverticulitis Ganglion cyst of dorsum of left wrist History of biliary stent insertion Jaundice Limb weakness Multiple sclerosis Smoker Substance abuse Home Medications ondansetron 4 mg disintegrating tablet 4 mg PO Q8H PRN nausea and vomiting #10 tabs 03/30/22 [Rx Last Taken Unknown] ciprofloxacin HCl 500 mg tablet 500 mg PO BID 7 days #14 tabs 04/08/22 [Rx Last Taken Unknown] metronidazole 500 mg tablet 500 mg PO TID 7 days #21 tabs 04/08/22 [Rx Last Taken Unknown] Allergy/AdvReac Type Severity Reaction Status Date / Time No Known Allergies Allergy Verified 04/06/22 19:56 Family History Father Lung cancer Mother Hypertension Gout Uncle Pancreatic cancer maternal Lung cancer paternal Surgical History History of microdiscectomy History of rotator cuff surgery Hx of prostate biopsy Previous back surgery Social History household members: spouse and family 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; 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 [employer] Smoking Status: Current every day smoker tobacco type: cigarettes alcohol intake: never substance use type: does not use ROS Constitutional Constitutional: Reports anorexia; Denies change in weight, chills, fatigue, fever(s), malaise, night sweats or weakness Eyes Eyes: Denies blurry vision, change in eye color, change in vision, discharge from eye(s), double vision, erythema, eye pain or loss of vision ENT HEENT: Denies abnormal hearing, dysphagia, ear pain, epistaxis, headache(s), hearing loss, nasal congestion, nasal discharge, post nasal drip, sinus pressure or sore throat Cardiovascular Cardiovascular: Denies chest pain, claudication, dyspnea on exertion, edema, lightheadedness, orthopnea, palpitations, paroxysmal nocturnal dyspnea, rapid heart rate or syncope Respiratory/Chest Respiratory/Chest: Denies cough, dyspnea, excessive phlegm production, hemoptysis, productive cough, shortness of breath at rest, shortness of breath with exertion or wheezing Gastrointestinal Gastrointestinal: Reports abdominal pain and constipation; Denies coffee ground emesis, diarrhea, dyspepsia, hematemesis, hematochezia, loose stools, melena, nausea or vomiting Genitourinary Genitourinary: Denies burning urination, difficulty urinating, dysuria, hematuria, nocturia, urinary frequency, urinary hesitancy, urinary incontinence or urinary urgency Musculoskeletal Musculoskeletal: Denies arthralgias, back pain, joint pain, joint stiffness, joint swelling, myalgias or neck pain Neurologic Neurologic: Denies abnormal gait, abnormal speech, confusion, disequilibrium, dizziness, focal weakness, headache(s), numbness, paresthesias, seizure-like activity, seizures, syncope, tingling or tremor(s) Psychiatric Psychiatric: Denies anxiety, depression, homicidal ideation or suicidal ideation Endocrine Endocrinology: Denies change in body appearance, cold intolerance, excessive sweating, heat intolerance, polydipsia or polyuria Hematologic/Lymphatic Hematologic/Lymphatic: Denies anemia, easy bleeding, easy bruising or lymphadenopathy Allergic/Immunologic Allergic/Immunologic: Denies rhinitis, hives, eczemia or asthma Physical Exam Const alert, oriented x3, no apparent distress, average body habitus and well nourished Constitutional Narrative: Older middle-age, white male sitting comfortably upright in bed talking with his daughter. General Appearance: cooperative HEENT normocephalic, head/scalp atraumatic, hearing grossly normal bilaterally, moist oral mucous membranes and oropharynx normal HEENT Narrative: Poor dentition, Mallampati 2, no thrush. Eyes PERRL and EOMs intact bilaterally Eyes Narrative: Mild scleral icterus Neck no lymphadenopathy, supple, no JVD and no carotid bruits Neck Narrative: Trachea midline, no thyroid enlargement. Resp normal respiratory effort, no retractions, no use of accessory muscles and clear to auscultation bilaterally Auscultation: Negative for crackles, rales, rhonchi or wheezes Cardio regular rate, regular rhythm, S1 normal heart sound, S2 normal heart sound, no murmurs, no rub, no gallops, no clicks and no JVD GI soft to palpation Inspection: abdominal distention Auscultation: normoactive bowel sounds Palpation: soft, tender LLQ and LUQ and no hepatosplenomegaly; Negative for firm, guarding, rigid, splenomegaly or hernia Extremity normal to inspection and no clubbing, cyanosis or edema Extremity Narrative: Pedal pulses 2+ bilaterally. Skin no rashes or lesions noted, no wounds, skin turgor normal, no jaundice, no petechiae and no mottling Neuro oriented x3, CN's II-XII intact bilaterally, moves all extremities and no focal motor deficits Neuro Narrative: Decreased sensation bilaterally from mid thigh down related to multiple sclerosis. Sensorium / Orientation: awake, alert, oriented to person, oriented to place and oriented to time Speech: speech normal Motor Exam: strength 5/5 throughout Psych affect normal Mood & Affect: Negative for depressed or anxious Results Lab / Micro Data Attestation: I reviewed the patient's lab results. Result Diagrams: 04/14/22 10:27 04/14/22 10:27 Assessment & Plan Assessment/Plan (1) Acute pancreatitis: (2) Abdominal pain: (3) Prostate cancer metastatic to bone: (4) Constipation: PLAN: Plan Dr. Casas [employer] Student Acute Pancreatitis ? Likely secondary to recent ERCP ? Lipase 7830 ? No findings on CT, anticipate chemical pancreatitis ? NPO ? Aggressive hydration with LR at 200 mL/h ? Pain control with Dilaudid as needed ? CMP in morning Constipation ? MiraLAX twice daily Transaminitis/hyperbilirubinemia ? Trending up over several months, but improved from prior admission ? Trend with CMP Macrocytic anemia ? Hemoglobin baseline appears to be 13.1-15 with chronically elevated MCV ? Hemoglobin 12.6 ? Trend with CBC Thrombocytosis ? Platelet just elevated at 477, baseline appears for 372-476 ? Suspect acute phase reactant ? Trend with CBC History of prostate cancer metastatic to bone ? Patient initially diagnosed in October 2020. Patient refused chemotherapy and radiation, but was on LHRH agonist therapy with Dr. Rebolledo. Last treatment in August 2021, per patient, and hasn't seen Dr. Rebolledo since because he owes him $175 and has to figure that out. ? Repeat CA 19-9 and CEA pending ? Patient continues to follow vegan diet and has attempted to decrease smoking ? Follow-up with Dr. Enrique as outpatient History of multiple sclerosis ? Diagnosed in 2013 ? Manages with healthy diet and stress reduction Tobacco abuse ? Has attempted to decrease smoking since cancer diagnosis ? Encourage cessation ? Refuses nicotine replacement DVT prophylaxis ? SCDs ? Lovenox 40 mg subcu daily CODE STATUS ? Full code Documented by User: Dr. Margo Casas DO 04/14/22 16:46 HPI - General General Date of Admission: 04/14/[address] Augusto LOWE, is a 66 M 66-year-old white male who presents emergency department [facility] on 04/14/2022 for abdominal pain. Patient indicated he has chronic abdominal pain in bilateral flanks which has been ongoing for a while and seems to be related to constipation which is a chronic issue for him but reported today he developed sudden onset increasing flank pain and some epigastric pain that he rated 10 out of 10 in when it was it is worse prior to presentation the emergency department. The patient indicated he had some shortness of breath related to the pain as well. He had no nausea or vomiting. He has been able to eat but has had decreased appetite over the last couple days. He did acknowledge that eating increased his pain approximately 20 minutes after he would eat, but again he had no nausea or vomiting associated with this. He is unclear when his last bowel movement was however he states is probably been of several days. He ate mashed potatoes at dinner last night without any significant issue and only had juice this morning given his pain. He has a known history of prostate cancer that is metastatic to bone and follows with outpatient oncology and urology for this. At his most recent follow-up he was found to have elevated liver enzymes and elevated alk phos with a normal bilirubin and a CT was performed that showed biliary ductal dilation. The patient was referred to gastroenterology as an outpatient but unfortunately had developed jaundice which prompted him to visit the emergency department on 04/06/2022. At that time he had worsened transaminitis as well as a worsening alk phos elevation in his bilirubin was 8 at that time. A CT was again performed and showed a density in the distal common bile duct and the patient was admitted. An ERCP was performed on 04/07/2022 that showed multiple obstructions that were concerning for malignancy and a biliary stent was placed and brushings were obtained for cytology. A CA 19 9 and a CEA were obtained and both found to be mildly elevated. Upon presentation the emergency department his vitals were as follows: Temperature 97.6, heart rate 74, blood pressure 130/79, respiratory rate 24 that improved to 16, and a pulse ox of 100% on room air. His CBC showed a mild macrocytic anemia which appears to be chronic and stable and a thrombocytosis that is mild with a platelet count of 477,000. His chemistry panel was overall unremarkable other than his liver enzymes remain elevated however improved. His alkaline phosphatase is down to 856, ALT to 74, AST to 41, and bilirubin is now 1.4. Given his abdominal pain and nausea lipase was obtained and was found to be 7830. A UA was obtained and was somewhat suggestive for infection with an elevated leuk esterase mildly elevated white cells and 1+ bacteria however the patient had no symptoms of dysuria or frequency. A CT of his abdomen pelvis was performed and found a large amount of fecal material in the colon, sigmoid diverticulosis, biliary stent in the proximal tip of the right intrabiliary duct and the distal tip in the second portion of the duodenum which was reviewed by gastroenterology and noted to have no significant migration as well as diffuse sclerotic metastatic disease. [employer] Student MISTI LOWE, is a 66 M who presents to [facility] emergency department on 04/14/2022 for abdominal pain. Patient states that he has had this pain intermittently for several months. The patient states that he feels a tightness in his abdomen, but describes this as a sensation of distention. Patient states that his pain is actually in his bilateral flanks. On 03/30/2022, patient saw his oncologist, Dr. Enrique, for follow-up for his prostate cancer with bone mets and also reported his abdominal pain. The patient was sent to the emergency department for evaluation of the abdominal pain, and he was found to have elevated liver function tests, with AST of 80, ALT of 292, and alkaline phosphatase at 636. Bilirubin was normal, and CT showed moderate biliary ductal dilatation. The patient was referred to gastroenterology, Dr. Law, for close follow-up as an outpatient. However, on 04/06/2022 the patient developed jaundice and represented to the emergency department. Bilirubin at this time was 8 and alkaline phosphatase elevated to 964. CT at that time showed density in the distal common duct, and the patient was admitted for ERCP. This was performed on 04/07/2022 and multiple obstructions were found secondary to malignant appearing structure and choledocholithiasis. A stent was placed, and cells for cytology were obtained, which resulted as negative for malignancy. However, CEA was elevated at 46 and CA 19?9 antigen at 57. Today the patient developed a sudden increase in his flank pain that he rated as 10 out of 10 and presented again to the emergency department. Patient reports feeling short of breath related to the abdominal distention at times, feel like I cannot take a deep breath. Patient states he is also been having hiccups frequently. The patient denies nausea, vomiting, fever, or chills. His last meal was mashed potatoes last night and juice this morning. Patient states prior to arrival that he was having a decreased appetite, but now that his pain is controlled this is improving. Patient reports irregular/small bowel movements for months, but denies diarrhea. On arrival to the emergency department, the patient's vital signs were temperature of 97.6, blood pressure 130/79, pulse of 74, respirations of 24, and oxygen saturation 100% on room air. CBC demonstrates macrocytic anemia with hemoglobin 12.6, up from 04/08 at 12.4. Otherwise, platelets at 477. Chemistry shows low creatinine at 0.67, which is consistent with previous admission. Prior creatinines appear to range from 0.72 to 0.92. Liver function tests have all improved from patient's recent discharge with AST of 41, ALT of 74, alkaline phosphatase of 856, and total bilirubin of 1.4. However patient's lipase is 7830, increased from 569 on 04/06. Urinalysis shows 1+ bacteria, WBCs, leukocyte esterases, but is negative for nitrites. CT of the pelvis does show large amount of stool, presence of biliary stent, and known sclerotic metastasis. The patient was given Zofran and Dilaudid. The patient will be admitted to the medical surgical floor for continued management. Case was discussed with Dr. Law by Dr. Casas. [facility] Medical History Cancer Common bile duct mass Difficulty balancing Diverticulitis Ganglion cyst of dorsum of left wrist History of biliary stent insertion Jaundice Limb weakness Multiple sclerosis Smoker Substance abuse Home Medications ondansetron 4 mg disintegrating tablet 4 mg PO Q8H PRN nausea and vomiting #10 tabs 03/30/22 [Rx Last Taken Unknown] ciprofloxacin HCl 500 mg tablet 500 mg PO BID 7 days #14 tabs 04/08/22 [Rx Last Taken Unknown] metronidazole 500 mg tablet 500 mg PO TID 7 days #21 tabs 04/08/22 [Rx Last Taken Unknown] Allergy/AdvReac Type Severity Reaction Status Date / Time No Known Allergies Allergy Verified 04/06/22 19:56 Family History Father Lung cancer Mother Hypertension Gout Uncle Pancreatic cancer maternal Lung cancer paternal Surgical History History of microdiscectomy History of rotator cuff surgery Hx of prostate biopsy Previous back surgery Social History household members: spouse and family 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; 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 [employer] Smoking Status: Current every day smoker tobacco type: cigarettes alcohol intake: never substance use type: does not use ROS Constitutional Constitutional: Reports anorexia; Denies change in weight, chills, fatigue, fever(s), malaise, night sweats, weakness or other Eyes Eyes: Denies blurry vision, change in eye color, change in vision, discharge from eye(s), double vision, erythema, eye pain, loss of vision or other ENT HEENT: Denies abnormal hearing, dysphagia, ear pain, epistaxis, headache(s), hearing loss, nasal congestion, nasal discharge, post nasal drip, sinus pressure, sore throat or other Cardiovascular Cardiovascular: Denies chest pain, claudication, dyspnea on exertion, edema, lightheadedness, orthopnea, palpitations, paroxysmal nocturnal dyspnea, rapid heart rate, syncope or other Respiratory/Chest Respiratory/Chest: Denies cough, dyspnea, excessive phlegm production, hemoptysis, productive cough, shortness of breath at rest, shortness of breath with exertion, wheezing or other Gastrointestinal Gastrointestinal: Reports abdominal pain, constipation and other Details: Pain about 20 minutes after ingesting food ; Denies coffee ground emesis, diarrhea, dyspepsia, hematemesis, hematochezia, loose stools, melena, nausea or vomiting Genitourinary Genitourinary: Denies burning urination, difficulty urinating, dysuria, hematuria, nocturia, urinary frequency, urinary hesitancy, urinary incontinence, urinary urgency or other Musculoskeletal Musculoskeletal: Denies arthralgias, back pain, joint pain, joint stiffness, joint swelling, myalgias, neck pain or other Neurologic Neurologic: Denies abnormal gait, abnormal speech, confusion, disequilibrium, dizziness, focal weakness, headache(s), numbness, paresthesias, seizure-like activity, seizures, syncope, tingling, tremor(s) or other Psychiatric Psychiatric: Denies anxiety, depression, homicidal ideation, suicidal ideation or other Endocrine Endocrinology: Denies change in body appearance, cold intolerance, excessive sweating, heat intolerance, polydipsia, polyuria or other Hematologic/Lymphatic Hematologic/Lymphatic: Denies anemia, easy bleeding, easy bruising, lymphadenopathy or other Allergic/Immunologic Allergic/Immunologic: Denies rhinitis, hives, eczemia, asthma or other Vital Signs Vital Signs Vital Signs: 04/14/22 09:57 04/14/22 12:24 04/14/22 12:40 Temperature 97.6 F L 98.4 F 98.4 F Temperature Source Temporal Oral Oral Pulse Rate 74 64 64 Respiratory Rate 24 H 18 18 Blood Pressure 130/79 H 140/86 H 140/86 H Blood Pressure Mean 96 104 Pulse Ox 100 99 99 Oxygen Delivery Method Room Air Room Air Room Air Weight Weight: 58.06 kg Body Mass Index (BMI) 21.2 Physical Exam Const alert, oriented x3, no apparent distress, average body habitus and well nourished Constitutional Narrative: Upper middle-aged white male sitting up in bed, very talkative, appears comfortable and nontoxic, no acute distress at this time HEENT normocephalic, head/scalp atraumatic, hearing grossly normal bilaterally, moist oral mucous membranes, oropharynx normal and dentition normal Eyes PERRL, EOMs intact bilaterally and conjunctivae normal Neck no lymphadenopathy, supple, no JVD and no carotid bruits Resp normal respiratory effort, no retractions, no use of accessory muscles and clear to auscultation bilaterally Auscultation: Negative for crackles, rales, rhonchi or wheezes Cardio regular rate, regular rhythm, S1 normal heart sound, S2 normal heart sound, no murmurs, no rub, no gallops, no clicks and no JVD GI soft to palpation Inspection: abdominal distention Auscultation: normoactive bowel sounds Palpation: soft, tender epigastric (Very mild) and other (Bilateral mid abdominal areas in the flank) and no hepatosplenomegaly; Negative for firm, guarding, rigid or hernia Extremity normal to inspection and no clubbing, cyanosis or edema Skin no rashes or lesions noted, no wounds, skin turgor normal, no jaundice, no petechiae and no mottling Neuro oriented x3, CN's II-XII intact bilaterally, moves all extremities and no focal motor deficits Sensorium / Orientation: awake, alert, oriented to person, oriented to place and oriented to time Speech: speech normal Motor Exam: strength 5/5 throughout Psych affect normal Psych Narrative: Very talkative and appropriately interactive Mood & Affect: Negative for depressed or anxious Results Lab / Micro Data Result Diagrams: 04/14/22 10:27 04/14/22 10:27 Labs: Laboratory Results - last 24 hr 04/14/22 10:27: WBC 8.7, RBC 3.61 L, Hgb 12.6 L, Hct 37.2 L, MCV 103.0 H, MCH 34.9 H, MCHC 33.9, RDW Std Deviation 51.9 H, RDW Coeff of Ad 13.6, Plt Count 477 H, MPV 10.2, Immature Gran % (Auto) 0.500, Neut % (Auto) 67.4, Lymph % (Auto) 20.2, Kingfisher % (Auto) 10.4 H, Eos % (Auto) 0.8, Baso % (Auto) 0.7, Absolute Neuts (auto) 5.9, Absolute Lymphs (auto) 1.76, Nucleated RBC % 0 04/14/22 10:27: Sodium 135 L, Potassium 4.6, Chloride 106, Carbon Dioxide 24.0, Anion Gap 5, BUN 10, Creatinine 0.67 L, Estim Creat Clear Calc 90.27, Est GFR (MDRD) Af Amer 154, Est GFR (MDRD) Non-Af 127, BUN/Creatinine Ratio 15.0, Glucose 110 H, Calcium 9.0, Total Bilirubin 1.40 H, AST 41 H, ALT 74 H, Alkaline Phosphatase 856 H, Total Protein 6.5, Albumin 3.3, Globulin 3.2, Al bumin/Globulin Ratio 1.0, Lipase 7830 H 04/14/22 10:27: Lactic Acid 1.2 04/14/22 11:10: Urine Color Lizeth, Urine Clarity Clear, Urine pH 8.0, Ur Specific Wagner 1.010, Urine Protein 30 H, Urine Glucose (UA) Normal, Urine Ketones 50 H, Urine Occult Blood 10 H, Urine Nitrite Negative, Urine Bilirubin 1 H, Urine Urobilinogen Normal, Ur Leukocyte Esterase 100 H, Urine RBC 0-5 SEEN, Urine WBC 10-25 SEEN, Ur Squamous Epith Cells 0-5 SEEN, Urine Bacteria 1+, Urine Mucus 0 SEEN Radiology Impression Abdomen/Pelvis CT 04/14/22 10:17 IMPRESSION: Large amount of fecal material is seen in the colon. Sigmoid diverticulosis. Biliary stent is seen with the proximal tip in the right intrabiliary duct and distal tip in the second portion of the duodenum. Diffuse sclerotic metastasis. Electronically Signed: Gianluca Curtis MD at 12:01 EDT , Assessment & Plan Assessment/Plan (1) Acute pancreatitis: (2) Abdominal pain: (3) Prostate cancer metastatic to bone: (4) Constipation: PLAN: Plan Dr. Casas Acute pancreatitis -Likely chemical pancreatitis as no pancreatic abnormalities were noted on CT -Likely related to his recent ERCP -Admitting lipase is 7830 -No reason to repeat and will follow clinically -N.p.o. except for meds -Aggressive hydration with LR 200 cc/h -Pain medication with Dilaudid but would avoid as able with constipation -Antiemetics as needed -Repeat lab in a.m. -GI consultation Acute on chronic constipation -Flank pain may be related to his chronic constipation issues -Start MiraLAX 17 g twice daily and we will likely discharge him on this to facilitate improved bowel habits Transaminitis/hyperbilirubinemia -Improving -Likely related to biliary stricture -GI is consulted Chronic macrocytic anemia -Counts are stable -Trend Thrombocytosis -Suspect acute phase reactant -Has been normal previously -Repeat CBC in a.m. History of prostate cancer metastatic to bone ? Patient initially diagnosed in October 2020. Patient refused chemotherapy and radiation, but was on LHRH agonist therapy with Dr. Rebolledo. Last treatment in August 2021, per patient, and hasn't seen Dr. Rebolledo since because he owes him $175 and has to figure that out. ? Repeat CA 19-9 and CEA pending ? Patient continues to follow vegan diet and has attempted to decrease smoking ? Follow-up with Dr. 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 Likely secondary to recent ERCP ? Lipase 7830 ? No findings on CT, anticipate chemical pancreatitis ? NPO ? Aggressive hydration with LR at 200 mL/h ? Pain control with Dilaudid as needed ? CMP in morning Constipation ? MiraLAX twice daily Transaminitis/hyperbilirubinemia ? Trending up over several months, but improved from prior admission ? Trend with CMP Macrocytic anemia ? Hemoglobin baseline appears to be 13.1-15 with chronically elevated MCV ? Hemoglobin 12.6 ? Trend with CBC Thrombocytosis ? Platelet just elevated at 477, baseline appears for 372-476 ? Suspect acute phase reactant ? Trend with CBC History of prostate cancer metastatic to bone ? Patient initially diagnosed in October 2020. Patient refused chemotherapy and radiation, but was on LHRH agonist therapy with Dr. Rebolledo. Last treatment in August 2021, per patient, and hasn't seen Dr. Rebolledo since because he owes him $175 and has to figure that out. ? Repeat CA 19-9 and CEA pending ? Patient continues to follow vegan diet and has attempted to decrease smoking ? Follow-up with Dr. Enrique as outpatient History of multiple sclerosis ? Diagnosed in 2013 ? Manages with healthy diet and stress reduction Tobacco abuse ? Has attempted to decrease smoking since cancer diagnosis ? Encourage cessation ? Refuses nicotine replacement DVT prophylaxis ? SCDs ? Lovenox 40 mg subcu daily CODE STATUS ? Full code Charges/Coding Visit Charges Inpatient E&M: 38412 Init Hosp L3
[2022-04-14 13:21] VITALS: BMI 21.2
[2022-04-14 13:27] VITALS: BP 139/80; PULSE 61; RESP 16; TEMP 37.1; O2SAT 97
[2022-04-14] MEDS: Lactated Ringers 1,000 ML 200 ML IV ×3 (13:43→21:24)
--- NOTE | 2022-04-14 15:55 | CHAPLAIN ---
Type of Pastoral Visit _x__ Initial Visit ___ Follow-up Visit ___ On-call Visit ___ General Patient Visit ___ Spiritual Assessment ___ Family Conference ___ Bereavement ___ Rapid Response ___ Code Blue ___ Other (describe below) Pastoral Care Referral From _x__ Patient ___ Family ___ Nurse ___ Physician ___ Landscape Laborer ___ Traffic Investigator ___ Other (describe below) Sacrament/Intervention _x__ Active listening ___ Anointing ___ Congregational ___ Bereavement ___ Communion ___ Sandy exploration ___ ___ Life review ___ Prayer ___ Reconciliation ___ Sacrament of Sick _x__ Supportive presence ___ Wedding ___ Other (describe below) Pastoral Comments introduced self and role to patient after recognizing that this was a new patient into this room and not the original patient that had been referred; pt was fine with being approached for supportive care and presence; pt gave some background information and how that comes just after he has retired; pt states that he mostly needs to sleep since he has done very little of that lately
[2022-04-14] MEDS: Polyethylene Glycol 3350 17 GM PACKET PO ×2 (16:14→21:18)
[2022-04-14 19:51] VITALS: BP 157/81; PULSE 68; RESP 16; TEMP 36.8; O2SAT 93
[2022-04-15 02:00] VITALS: BP 134/78; PULSE 66; RESP 16; TEMP 36.8; O2SAT 94
[2022-04-15] MEDS: HYDROmorphone 1 MG/ML Syringe IV ×5 (02:28→20:41)
[2022-04-15] MEDS: Lactated Ringers 1,000 ML 200 ML IV ×4 (02:29→19:49)
[2022-04-15 05:23] LABS: Absolute Lymphocyte Count 0.93 X10^3/uL (0.83-4.51); Absolute Neutrophil Count 5.8 X10^3/uL (2.0-7.7); Basophil# 0.09 X10^3/uL; Basophil% 1.1 % (0-1); Eosinophil# 0.15 X10^3/uL; Eosinophils% 1.9 % (0-5); Hematocrit 35.2 % (40-54); Hemoglobin 11.7 g/dL (13.0-16.5); Lymphocyte # 0.93 X10^3/ul (0.83-4.51); Lymphocyte % 11.9 % (19-41); Mean Corp Hgb Conc 33.2 g/dL (32-36); Mean Corpuscular Volume 105.4 fL (80-94); Mean Platelet Vol. 10.2 fl (6.2-12.0); Monocyte% 10.2 % (0-10); NRBC Flagged by Analyzer 0 % (0-5); Neutrophil # 5.83 X10^3/uL (2.7-7.7); Neutrophil % 74.4 % (47-70); Platelet Count 413 K/mm3 (150-450); RBC Distribution Width CV 13.6 % (11.6-14.6); RBC Distribution Width SD 52.7 fl (35.1-43.9); Red Blood Count 3.34 M/mm3 (4.6-6.2); White Blood Count 7.8 K/mm3 (4.4-11.0)
[2022-04-15 05:50] LABS: AST(SGOT) 33 U/L (15-37); Alanine Aminotransfer ALT/SGPT 55 U/L (16-61); Albumin, Serum 2.6 g/dL (3.2-5.0); Alkaline Phosphatase 695 U/L (45-117); Anion Gap 4 (5-15); BUN 9 mg/dL (7-18); BUN/Creat Ratio 16.1 RATIO (10-20); Calcium,Total 8.4 mg/dL (8.5-10.1); Chloride 105 mmol/L (98-107); Creatinine, Serum 0.56 mg/dL (0.70-1.30); EST Glomerular Filtration Rate 156 mL/min (>60); Est Glom Filt Rate - Afr Amer 189 mL/min (>60); Globulin 2.7 g/dL (2.2-4.2); Glucose 82 mg/dL (74-106); Magnesium 1.8 mg/dL (1.6-2.6); Phosphorus 3.3 mg/dL (2.5-4.9); Potassium 4.6 mmol/L (3.5-5.1); Protein, Total 5.3 g/dL (6.4-8.2); Sodium Level 134 mmol/L (136-145)
[2022-04-15 07:55] VITALS: O2SAT 93
[2022-04-15 08:26] VITALS: BP 139/75; PULSE 71; RESP 16; TEMP 36.8; O2SAT 93
--- NOTE | 2022-04-15 09:37 | MRI_ITS ---
STUDY: MR MRCP WITHOUT CONTRAST REASON FOR EXAM: Male, 66 years old. pancreatitis,biliary stent TECHNIQUE: Standard MRCP technique was utilized. 3-D postprocessing images were reviewed. COMPARISON: CT 04/14/2022 FINDINGS: Gall Bladder: Not well visualized. Cystic duct: Not well visualized. Intrahepatic ducts: Moderately dilated. Common hepatic duct: Moderately dilated. Common bile duct: There is an abrupt cut off in the proximal common bile duct. Stent placement is better visualized on recent CT. Pancreatic duct: Not well visualized. Other: Refer to CT from yesterday for other intra-abdominal findings. MRI/MRCP Abdomen without Contrast IMPRESSION: Abrupt cut off in the proximal common bile duct with upstream intrahepatic biliary ductal dilatation indicating non-patent stent. Refer to CT from yesterday for other intra-abdominal findings. Electronically Signed: Tre Rivera MD at 16:39 EDT ,
[2022-04-15] MEDS: Lactulose 20 GM/30 ML UDC PO ×2 (10:00→21:42)
[2022-04-15] MEDS: Polyethylene Glycol 3350 17 GM PACKET PO ×2 (10:00→21:42)
[2022-04-15] MEDS: Enoxaparin 40 MG/0.4 ML Syringe SC (10:11)
--- NOTE | 2022-04-15 10:30 | CASEMGMT ---
DAPHNE ALATORRE Assessment: Face to Face with pt for initial transition planning/care coordination assessment. DAPHNE ALATORRE introduced self and role at [facility], pt voices understanding and consents to assessment. Pt is A/O x4 and answers all questions appropriately at this time. Pt lying in bed in no distress. Care providers, pharmacy, and demographics verified/updated. Admitting Dx: ERCP induced pancreatitis PCP:Fe Specialists:Iva, onc; Friend, GI Preferred Pharmacy: [facility] [place] Insurance: [employer] [facility] A Prescription Benefit: yes LW/HPOA: Pt states he has a LW/DPOA and his is his DPOA. He is aware this is not on file at [facility] and he may bring in to be scanned into his chart. LNOK: Jacqui Garza, Living Arrangements: Pt lives with and two sons in a story and a half house with 2-3 steps to enter. Pt reports he is I in ADL's and denies concerns at home. Transportation: Pt drives self and denies concerns with transportation. DME/HHC/SNF: Pt denies having any DME in the home, previous HHC or SNF stays. Pt states no concerns with going home at time of dc. Pt states no further concerns/needs. CM to follow. Advised pt to ask CM if any further question/concerns/needs arise, voices understanding. Pt Goal: Home Plan: Home
--- NOTE | 2022-04-15 10:32 | PCM.PN.HOSP ---
Subjective Subjective Patient states he still having his diffuse abdominal pain but overall improved however he has been receiving IV pain medicine every 3 hours. No bowel movement as of yet. Objective Data Objective Data Vital Signs: Vital Signs Temp Pulse Resp BP Pulse Ox O2 Del Method 98.2 F 71 16 139/75 H 93 Room Air 04/15/22 08:26 04/15/22 08:26 04/15/22 08:26 04/15/22 08:26 04/15/22 08:26 04/15/22 08:26 Oxygen Delivery Method Room Air Weight: 58.06 kg Body Mass Index (BMI) 21.2 Intake & Output: Intake and Output for Last 24 Hours 04/13/22 04/14/22 04/15/22 23:59 23:59 23:59 Intake Total 2203.33 / 2203.33 1710 / 1710 Balance 2203.33 / 2203.33 1710 / 1710 Lab / Micro Data Result Diagrams: 04/15/22 04:54 04/15/22 04:54 Labs: Laboratory Results - last 24 hr 04/14/22 10:27: WBC 8.7, RBC 3.61 L, Hgb 12.6 L, Hct 37.2 L, MCV 103.0 H, MCH 34.9 H, MCHC 33.9, RDW Std Deviation 51.9 H, RDW Coeff of Ad 13.6, Plt Count 477 H, MPV 10.2, Immature Gran % (Auto) 0.500, Neut % (Auto) 67.4, Lymph % (Auto) 20.2, [place] % (Auto) 10.4 H, Eos % (Auto) 0.8, Baso % (Auto) 0.7, Absolute Neuts (auto) 5.9, Absolute Lymphs (auto) 1.76, Nucleated RBC % 0 04/14/22 10:27: Sodium 135 L, Potassium 4.6, Chloride 106, Carbon Dioxide 24.0, Anion Gap 5, BUN 10, Creatinine 0.67 L, Estim Creat Clear Calc 90.27, Est GFR (MDRD) Af Amer 154, Est GFR (MDRD) Non-Af 127, BUN/Creatinine Ratio 15.0, Glucose 110 H, Calcium 9.0, Total Bilirubin 1.40 H, AST 41 H, ALT 74 H, Alkaline Phosphatase 856 H, Total Protein 6.5, Albumin 3.3, Globulin 3.2, Albumin/Globulin Ratio 1.0, Lipase 7830 H 04/14/22 10:27: Lactic Acid 1.2 04/14/22 11:10: Urine Color Lizeth, Urine Clarity Clear, Urine pH 8.0, Ur Specific [place] 1.010, Urine Protein 30 H, Urine Glucose (UA) Normal, Urine Ketones 50 H, Urine Occult Blood 10 H, Urine Nitrite Negative, Urine Bilirubin 1 H, Urine Urobilinogen Normal, Ur Leukocyte Esterase 100 H, Urine RBC 0-5 SEEN, Urine WBC 10-25 SEEN, Ur Squamous Epith Cells 0-5 SEEN, Urine Bacteria 1+, Urine Mucus 0 SEEN 04/15/22 04:54: WBC 7.8, RBC 3.34 L, Hgb 11.7 L, Hct 35.2 L, MCV 105.4 H, MCH 35.0 H, MCHC 33.2, RDW Std Deviation 52.7 H, RDW Coeff of Ad 13.6, Plt Count 413, MPV 10.2, Immature Gran % (Auto) 0.500, Neut % (Auto) 74.4 H, Lymph % (Auto) 11.9 L, [place] % (Auto) 10.2 H, Eos % (Auto) 1.9, Baso % (Auto) 1.1 H, Absolute Neuts (auto) 5.8, Absolute Lymphs (auto) 0.93, Nucleated RBC % 0 04/15/22 04:54: Sodium 134 L, Potassium 4.6, Chloride 105, Carbon Dioxide 25.0, Anion Gap 4 L, BUN 9, Creatinine 0.56 L, Estim Creat Clear Calc 108.00, Est GFR (MDRD) Af Amer 189, Est GFR (MDRD) Non-Af 156, BUN/Creatinine Ratio 16.1, Glucose 82, Calcium 8.4 L, Phosphorus 3.3, Magnesium 1.8, Total Bilirubin 1.00, AST 33, ALT 55, Alkaline Phosphatase 695 H, Total Protein 5.3 L, Albumin 2.6 L, Globulin 2.7, Albumin/Globulin Ratio 1.0 Radiography Diagnostic Testing: Radiology Impression Abdomen/Pelvis CT 04/14/22 10:17 IMPRESSION: Large amount of fecal material is seen in the colon. Sigmoid diverticulosis. Biliary stent is seen with the proximal tip in the right intrabiliary duct and distal tip in the second portion of the duodenum. Diffuse sclerotic metastasis. Electronically Signed: Gianluca Curtis MD at 12:01 EDT , Physical Exam Const alert, oriented x3, no apparent distress, average body habitus and well nourished Constitutional Narrative: Upper middle-aged white male lying in bed, nursing at bedside, patient appears comfortable and nontoxic at this time HEENT normocephalic, head/scalp atraumatic, hearing grossly normal bilaterally, moist oral mucous membranes and oropharynx normal HEENT Narrative: Dentition is poor, Mallampati 2, no thrush Resp normal respiratory effort, no retractions, no use of accessory muscles and clear to auscultation bilaterally Resp Narrative: Diffusely diminished but clear Auscultation: Negative for crackles, rales, rhonchi or wheezes Cardio regular rate, regular rhythm, S1 normal heart sound, S2 normal heart sound, no murmurs, no rub, no gallops, no clicks and no JVD GI soft to palpation GI Narrative: No significant distention today, mild diffuse tenderness upon my exam, no significant epigastric tenderness at this time Auscultation: normoactive bowel sounds Palpation: soft and no hepatosplenomegaly; Negative for firm, guarding, rigid or hernia Extremity normal to inspection and no clubbing, cyanosis or edema Neuro oriented x3, CN's II-XII intact bilaterally, moves all extremities and no focal motor deficits Sensorium / Orientation: awake, alert, oriented to person, oriented to place and oriented to time Speech: speech normal Psych Mood & Affect: Negative for depressed or anxious Assessment & Plan Assessment/Plan (1) Acute pancreatitis: (2) Abdominal pain: (3) Prostate cancer metastatic to bone: (4) Constipation: PLAN: Plan Acute pancreatitis -Likely chemical pancreatitis as no pancreatic abnormalities were noted on CT -Likely related to his recent ERCP -Admitting lipase is 7830 -No reason to repeat and will follow clinically -We will try with clear liquids today -Continue aggressive hydration with LR 200 cc/h until clear if patient is able to eat and drink -Pain medication with Dilaudid but would avoid as able with constipation -Antiemetics as needed -GI has evaluated the patient and ordered an MRCP Acute on chronic constipation/abdominal pain -Flank pain may be related to his chronic constipation issues -GI suspect possible ischemic gut that is chronic in nature as the etiology for his chronic abdominal pain and constipation -Continue MiraLAX 17 g twice daily and we will likely discharge him on this to facilitate improved bowel habits -Add lactulose twice daily Transaminitis/hyperbilirubinemia -Resolved -Likely related to biliary stricture -CEA and CA 19-9 are pending at GIs request -GI is following -MRCP pending Chronic macrocytic anemia -Counts are stable -Trend Thrombocytosis -Resolved -Has been normal previously -Repeat CBC in a.m. History of prostate cancer metastatic to bone ? Patient initially diagnosed in October 2020. Patient refused chemotherapy and radiation, but was on LHRH agonist therapy with Dr. Rebolledo. Last treatment in August 2021, per patient, and hasn't seen Dr. Rebolledo since because he owes him $175 and has to figure that out. ? Repeat CA 19-9 and CEA pending ? Patient continues to follow vegan diet and has attempted to decrease smoking ? Follow-up with Dr. Enrique as outpatient History of MS -Patient is not on any medications at baseline for this -Monitor for signs and symptoms clinically -Currently appears to be in remission -Diagnosed in 2013 Tobacco abuse -Patient has reduced tobacco use but still smoking -Strongly recommend cessation especially with cancer diagnoses -Nicotine patch offered and patient declined DVT prophylaxis -Lovenox daily -SCDs CODE STATUS -Full code as per discussion on admission Charges/Coding Visit Charges Inpatient E&M: 69220 Subs Hosp L2
--- NOTE | 2022-04-15 12:09 | PCM.CONS.GEN ---
Assessment & Plan Assessment/Plan (1) Acute pancreatitis: PLAN: I suspect that he has been having intermittent pancreatitis. This is due to the fact that his lipase was up in the 400s prior to him coming into the hospital and the fact that he had a stone that was lodged in the distal common bile duct. During his ERCP and currently there is no stones in his gallbladder so I suspect that he formed stones may be secondary to the stricture. He has not had a sore secondary to weight loss associated with changing his diet and his diagnosis o prostate cancer. I think it is likely that he had post ERCP pancreatitis secondary to the stent that was placed. I think he previously had pancreatitis secondary to choledocholithiasis. His repeat CA 19-9 and alpha-fetoprotein are pending. I would advance his diet as tolerated. He likely has a little bit of ileus associated with pancreatitis on some Reglan therapy. I will also may consider pancreatic enzymes if he still has abdominal pain after having a bowel movement. He states his last bowel movement was 5 days ago. (2) Constipation: PLAN: Constipation thought to be secondary to ileus from his diagnosis of pancreatitis in the setting of chronic idiopathic constipation. Recommend Colace 4 tabs at this time followed by 1 in the morning 1 at night in the future. HPI Consult Data Date of Consult: 04/15/22 HPI Narrative Reason for Consultation: pancreatitis HPI Narrative: MISTI LOWE, is a 66 M who presents to the emergency room with worsening abdominal pain similar to what he experienced prior to him coming into the hospital on last admission. Over the last couple months he has been getting intermittent excruciating abdominal pain starting in the mid epigastric area and radiating in a bandlike region around his abdomen. ? He originally presented with an ?increased PSA 166 on November 01, 2020.? He had bone scan and CT abdomen and pelvis. Prostatic biopsy on 11/07/2020 showed Prostatic adenocarcinoma [place] 3/4. Bone scan on 11/08/2020 showed diffuse osteoblastic metastatic disease in appendicular and axial skeletal structures with involvement of the skull.? CT abdomen and pelvis on 11/01/2020 showed prostatic enlargement, mildly enlarged retroperitoneal nodes, adrenal nodules, multiple sclerotic bone lesions.? He was started on LHRH agonist injection and Casodex by Dr. Rebolledo and then referred for chemotherapy. He declined chemotherapy and prophylactic bone absorptive therapy. He remains on LHRH agonist.? Comes for follow up because of abdominal pain, poor appetite, to Amoxicillin for teeth infection. ?He is seen by Dr. Enrique.? He was seen for similar presentation on March 30.? CAT scan revealed bilateral small pleural effusions, intra ductal dilatation due to obstruction and metastatic blastic lesion that was noted on prior.? The intraductal dilatation is worse than what was noted on prior images. Patient denies fever or chills.? Patient denies night sweats.? Patient denies headache, ocular, visual or auditory symptoms other than his eyes being yellow.? He denies cough or shortness of breath.? He denies dyspnea on exertion.? He denies orthopnea or PND.? He does report abdominal discomfort with distention.? He denies history of alcohol use.? He denies history of drug use.? He is a smoker. He does report dark-colored urine.? His stool is still brown.? He denies black or maroon-colored stool.? He denies blood in his stool.? He denies dysuria, frequency or urgency. His repeat CT scan on April 06, 2022 shows continued ductal dilation along with a distal common bile duct obstruction believed to be a common bile duct stone. He underwent an ERCP and had the stone removed. There also was a stricture at the level of the floyd hepatis that was not dilated but he should stent was placed. A CA 19-9 was ordered and it was mildly elevated. Alpha-fetoprotein was also ordered and was mildly elevated. He presented back to the hospital with worsening abdominal pain that he says is very similar to his previous admission. At this time his lipase was discovered to be 7400 where previously was only elevated to 500. A CT scan abdomen pelvis did not show any signs of pancreatitis but it did show constipation and a patent biliary stent. [facility] Medical History Cancer Common bile duct mass Difficulty balancing Diverticulitis Ganglion cyst of dorsum of left wrist History of biliary stent insertion Jaundice Limb weakness Multiple sclerosis Smoker Substance abuse Home Medications ondansetron 4 mg disintegrating tablet 4 mg PO Q8H PRN nausea and vomiting #10 tabs 03/30/22 [Rx Last Taken Unknown] ciprofloxacin HCl 500 mg tablet 500 mg PO BID 7 days #14 tabs 04/08/22 [Rx Last Taken Unknown] metronidazole 500 mg tablet 500 mg PO TID 7 days #21 tabs 04/08/22 [Rx Last Taken Unknown] Allergy/AdvReac Type Severity Reaction Status Date / Time No Known Allergies Allergy Verified 04/06/22 19:56 Family History Father Lung cancer Mother Hypertension Gout Uncle Pancreatic cancer maternal Lung cancer paternal Surgical History History of microdiscectomy History of rotator cuff surgery Hx of prostate biopsy Previous back surgery Social History household members: spouse and family 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; 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 [employer] Smoking Status: Current every day smoker tobacco type: cigarettes alcohol intake: never substance use type: does not use ROS Constitutional Constitutional: Reports anorexia; Denies change in weight, chills, fatigue, fever(s), malaise, night sweats, weakness or other Eyes Eyes: Denies blurry vision, change in eye color, change in vision, discharge from eye(s), double vision, erythema, eye pain, loss of vision or other ENT HEENT: Denies abnormal hearing, dysphagia, ear pain, epistaxis, headache(s), hearing loss, nasal congestion, nasal discharge, post nasal drip, sinus pressure, sore throat or other Cardiovascular Cardiovascular: Denies chest pain, claudication, dyspnea on exertion, edema, lightheadedness, orthopnea, palpitations, paroxysmal nocturnal dyspnea, rapid heart rate, syncope or other Respiratory/Chest Respiratory/Chest: Denies cough, dyspnea, excessive phlegm production, hemoptysis, productive cough, shortness of breath at rest, shortness of breath with exertion, wheezing or other Gastrointestinal Gastrointestinal: Reports abdominal pain, constipation and other Details: Pain about 20 minutes after ingesting food ; Denies coffee ground emesis, diarrhea, dyspepsia, hematemesis, hematochezia, loose stools, melena, nausea or vomiting Genitourinary Genitourinary: Denies burning urination, difficulty urinating, dysuria, hematuria, nocturia, urinary frequency, urinary hesitancy, urinary incontinence, urinary urgency or other Musculoskeletal Musculoskeletal: Denies arthralgias, back pain, joint pain, joint stiffness, joint swelling, myalgias, neck pain or other Neurologic Neurologic: Denies abnormal gait, abnormal speech, confusion, disequilibrium, dizziness, focal weakness, headache(s), numbness, paresthesias, seizure-like activity, seizures, syncope, tingling, tremor(s) or other Psychiatric Psychiatric: Denies anxiety, depression, homicidal ideation, suicidal ideation or other Endocrine Endocrinology: Denies change in body appearance, cold intolerance, excessive sweating, heat intolerance, polydipsia, polyuria or other Hematologic/Lymphatic Hematologic/Lymphatic: Denies anemia, easy bleeding, easy bruising, lymphadenopathy or other Allergic/Immunologic Allergic/Immunologic: Denies rhinitis, hives, eczemia, asthma or other Physical Exam Const alert, oriented x3, no apparent distress, average body habitus and well nourished Constitutional Narrative: Upper middle-aged white male lying in bed, nursing at bedside, patient appears comfortable and nontoxic at this time HEENT normocephalic, head/scalp atraumatic, hearing grossly normal bilaterally, moist oral mucous membranes and oropharynx normal HEENT Narrative: Dentition is poor, Mallampati 2, no thrush Resp normal respiratory effort, no retractions, no use of accessory muscles and clear to auscultation bilaterally Resp Narrative: Diffusely diminished but clear Auscultation: Negative for crackles, rales, rhonchi or wheezes Cardio regular rate, regular rhythm, S1 normal heart sound, S2 normal heart sound, no murmurs, no rub, no gallops, no clicks and no JVD GI soft to palpation GI Narrative: No significant distention today, mild diffuse tenderness upon my exam, no significant epigastric tenderness at this time Auscultation: normoactive bowel sounds Palpation: soft and no hepatosplenomegaly; Negative for firm, guarding, rigid or hernia Extremity normal to inspection and no clubbing, cyanosis or edema Neuro oriented x3, CN's II-XII intact bilaterally, moves all extremities and no focal motor deficits Sensorium / Orientation: awake, alert, oriented to person, oriented to place and oriented to time Speech: speech normal Psych Mood & Affect: Negative for depressed or anxious Lab / Micro Data Result Diagrams: 04/15/22 04:54 04/15/22 04:54 Labs: Laboratory Results - last 24 hr 04/15/22 04:54: WBC 7.8, RBC 3.34 L, Hgb 11.7 L, Hct 35.2 L, MCV 105.4 H, MCH 35.0 H, MCHC 33.2, RDW Std Deviation 52.7 H, RDW Coeff of Ad 13.6, Plt Count 413, MPV 10.2, Immature Gran % (Auto) 0.500, Neut % (Auto) 74.4 H, Lymph % (Auto) 11.9 L, [place] % (Auto) 10.2 H, Eos % (Auto) 1.9, Baso % (Auto) 1.1 H, Absolute Neuts (auto) 5.8, Absolute Lymphs (auto) 0.93, Nucleated RBC % 0 04/15/22 04:54: Sodium 134 L, Potassium 4.6, Chloride 105, Carbon Dioxide 25.0, Anion Gap 4 L, BUN 9, Creatinine 0.56 L, Estim Creat Clear Calc 108.00, Est GFR (MDRD) Af Amer 189, Est GFR (MDRD) Non-Af 156, BUN/Creatinine Ratio 16.1, Glucose 82, Calcium 8.4 L, Phosphorus 3.3, Magnesium 1.8, Total Bilirubin 1.00, AST 33, ALT 55, Alkaline Phosphatase 695 H, Total Protein 5.3 L, Albumin 2.6 L, Globulin 2.7, Albumin/Globulin Ratio 1.0 Charges/Coding Visit Charges Inpatient E&M: 19149 Init Hosp L3
[2022-04-15 14:47] VITALS: BP 116/80; PULSE 67; RESP 16; TEMP 36.7; O2SAT 97
[2022-04-15] MEDS: Bisacodyl 5 MG Tablet 20 MG PO (15:09)
[2022-04-15] MEDS: 0.9% Saline Lock 10 ML Syringe IV (15:11)
[2022-04-15] MEDS: Metoclopramide 10 MG/2 ML Vial 5 MG IV (18:41)
[2022-04-15 20:33] VITALS: BP 141/86; PULSE 83; RESP 16; TEMP 36.8; O2SAT 93
[2022-04-16] MEDS: Metoclopramide 10 MG/2 ML Vial 5 MG IV ×5 (00:26→23:58)
[2022-04-16] MEDS: Lactated Ringers 1,000 ML 200 ML IV ×3 (00:27→10:26)
[2022-04-16] MEDS: HYDROmorphone 1 MG/ML Syringe IV ×5 (00:32→23:58)
[2022-04-16 03:07] VITALS: BP 151/81; PULSE 71; RESP 16; TEMP 36.6; O2SAT 94
[2022-04-16 06:13] LABS: ALB/GLOB Ratio 0.9 RATIO (0.9-2.4); AST(SGOT) 39 U/L (15-37); Alanine Aminotransfer ALT/SGPT 54 U/L (16-61); Albumin, Serum 2.6 g/dL (3.2-5.0); Alkaline Phosphatase 683 U/L (45-117); Anion Gap 8 (5-15); BUN 10 mg/dL (7-18); BUN/Creat Ratio 18.8 RATIO (10-20); Calcium,Total 8.5 mg/dL (8.5-10.1); Chloride 102 mmol/L (98-107); Creatinine, Serum 0.53 mg/dL (0.70-1.30); EST Glomerular Filtration Rate 165 mL/min (>60); Est Glom Filt Rate - Afr Amer 199 mL/min (>60); Estimated Creatinine Clearance 114.19 ml/min; Globulin 2.8 g/dL (2.2-4.2); Glucose 86 mg/dL (74-106); Potassium 3.8 mmol/L (3.5-5.1); Protein, Total 5.4 g/dL (6.4-8.2); Sodium Level 135 mmol/L (136-145)
[2022-04-16 09:11] VITALS: O2SAT 93
[2022-04-16 10:14] VITALS: BP 153/82; PULSE 66; RESP 16; TEMP 36.8; O2SAT 95
[2022-04-16] MEDS: Docusate Sodium 100 MG Capsule PO (10:25)
[2022-04-16] MEDS: Lactulose 20 GM/30 ML UDC PO ×2 (10:25→17:43)
[2022-04-16] MEDS: Polyethylene Glycol 3350 17 GM PACKET PO (10:26)
[2022-04-16] MEDS: Enoxaparin 40 MG/0.4 ML Syringe SC (10:26)
--- NOTE | 2022-04-16 12:06 | VDLE_ITS ---
Reason For Study: Swelling RIGHT LEFT GSV is normal. GSV is normal. CFV is compressible, spontaneous, phasic, CFV is compressible, spontaneous, phasic, competent and demonstrates normal competent, and demonstrates normal augmentation. augmentation. FV is compressible, spontaneous, phasic, FV is compressible, spontaneous, phasic, competent and demonstrates normal competent and demonstrates normal augmentation. augmentation. POP V is compressible, spontaneous, phasic, POP V is compressible, spontaneous, phasic, competent and demonstrates normal competent and demonstrates normal augmentation. augmentation. T/P Trunk is compressible. T/P Trunk is compressible. PTV is compressible. PTV is compressible. RT PerV is compressible. LT PerV is compressible. Procedure This is a venous duplex using B-mode, color flow and spectral Doppler. Exam performed portable in patient room. A preliminary report was called and/or faxed to [facility]. VL/Venous Duplex US - Azar Extrem Interpretation Summary No evidence for acute deep venous thrombosis bilateral lower extremities with p atent and compressible bilateral great saphenous veins. Ordering Physician: Margo Casas Referring Physician: Madhavi Miramontes M.D. Performed By: Celi Hamilton RVT
--- NOTE | 2022-04-16 12:21 | PCM.PN.HOSP ---
Subjective Subjective Still no bowel movement. Patient states his pain has improved but still requiring IV pain medication every 5-6 hours. I encouraged him not to utilize pain medication if possible as this will increase his constipation risk. LFTs have normalized. Patient did not really try to eat much yesterday because he does not like sweet things. I encouraged him to try a regular diet today to see if this could help his bowels move as well. Patient is concerned about bilateral lower extremity swelling that he is noted worsening since admission. We did discuss that he has been on aggressive hydration given his pancreatitis on presentation and that he was able to eat and drink we will be able to discontinue these. Objective Data Objective Data Vital Signs: Vital Signs Temp Pulse Resp BP Pulse Ox O2 Del Method 98.3 F 66 16 153/82 H 95 Room Air 04/16/22 10:14 04/16/22 10:14 04/16/22 10:14 04/16/22 10:14 04/16/22 10:14 04/16/22 10:14 Oxygen Delivery Method Room Air Weight: 58.1 kg Body Mass Index (BMI) 21.2 Intake & Output: Intake and Output for Last 24 Hours 04/14/22 04/15/22 04/16/22 23:59 23:59 23:59 Intake Total 2203.33 / 2203.33 2730 / 2930 3216.67 / 3216.67 Output Total 850 / 850 Balance 2203.33 / 2203.33 2730 / 2680 2366.67 / 2366.67 Lab / Micro Data Result Diagrams: 04/15/22 04:54 04/16/22 05:08 Labs: Laboratory Results - last 24 hr 04/16/22 05:08: Sodium 135 L, Potassium 3.8, Chloride 102, Carbon Dioxide 25.0, Anion Gap 8, BUN 10, Creatinine 0.53 L, Estim Creat Clear Calc 114.19, Est GFR (MDRD) Af Amer 199, Est GFR (MDRD) Non-Af 165, BUN/Creatinine Ratio 18.8, Glucose 86, Calcium 8.5, Total Bilirubin 0.90, AST 39 H, ALT 54, Alkaline Phosphatase 683 H, Total Protein 5.4 L, Albumin 2.6 L, Globulin 2.8, Albumin/Globulin Ratio 0.9 Radiography Diagnostic Testing: Radiology Impression Abdomen/Pelvis CT 04/14/22 10:17 IMPRESSION: Large amount of fecal material is seen in the colon. Sigmoid diverticulosis. Biliary stent is seen with the proximal tip in the right intrabiliary duct and distal tip in the second portion of the duodenum. Diffuse sclerotic metastasis. Electronically Signed: Gianluca Curtis MD at 12:01 EDT , MRCP 04/15/22 09:37 IMPRESSION: Abrupt cut off in the proximal common bile duct with upstream intrahepatic biliary ductal dilatation indicating non-patent stent. Refer to CT from yesterday for other intra-abdominal findings. Electronically Signed: Tre Rivera MD at 16:39 EDT , Physical Exam Const alert, oriented x3, no apparent distress, average body habitus and well nourished Constitutional Narrative: Upper middle-aged white male lying in bed, nursing at bedside, patient appears comfortable and nontoxic at this time HEENT normocephalic, head/scalp atraumatic, hearing grossly normal bilaterally, moist oral mucous membranes and oropharynx normal HEENT Narrative: Dentition is poor, Mallampati is 2, no thrush Resp normal respiratory effort, no retractions, no use of accessory muscles and clear to auscultation bilaterally Resp Narrative: Diffusely diminished but clear Auscultation: Negative for crackles, rales, rhonchi or wheezes Cardio regular rate, regular rhythm, S1 normal heart sound, S2 normal heart sound, no murmurs, no rub, no gallops, no clicks and no JVD GI soft to palpation GI Narrative: Mild distention with mild tenderness diffusely, bowel sounds are normal active Inspection: abdominal distention Auscultation: normoactive bowel sounds Palpation: soft and no hepatosplenomegaly; Negative for firm, guarding, rigid or hernia Extremity normal to inspection Extremity Narrative: Proximal greater than distal bilateral lower extremity swelling right greater than left, no cyanosis or clubbing Neuro oriented x3, CN's II-XII intact bilaterally, moves all extremities and no focal motor deficits Sensorium / Orientation: awake, alert, oriented to person, oriented to place and oriented to time Speech: speech normal Assessment & Plan Assessment/Plan (1) Acute pancreatitis: (2) Abdominal pain: (3) Prostate cancer metastatic to bone: (4) Constipation: (5) Edema: PLAN: Plan Acute pancreatitis -Likely chemical pancreatitis as no pancreatic abnormalities were noted on CT -Likely related to his recent ERCP -Admitting lipase is 7830 -No reason to repeat and will follow clinically -Advance diet and encourage p.o. 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 as the etiology for his chronic abdominal pain and constipation -Continue MiraLAX 17 g twice daily and we will likely discharge him on this to facilitate improved bowel habits -Increase lactulose to every 4 hours -Colace 1 times -Patient resistant to suppository and enemas at this time Transaminitis/hyperbilirubinemia -Resolved -Likely related to biliary stricture/choledocholithiasis from previous admission -CEA and CA 19-9 remain pending -GI is following Edema -Likely related to aggressive hydration with pancreatitis -If patient eats and drinks well will be able to discontinue IV fluids -Able to stop IV fluids will consider Lasix 40 mg x 1 dose -Given history of cancer will check bilateral lower extremity Dopplers--> pending Chronic macrocytic anemia -Counts are stable -Trend History of prostate cancer metastatic to bone ? Patient initially diagnosed in October 2020. Patient refused chemotherapy and radiation, but was on LHRH agonist therapy with Dr. Rebolledo. Last treatment in August 2021, per patient, and hasn't seen Dr. Rebolledo since because he owes him $175 and has to figure that out. ? Repeat CA 19-9 and CEA pending ? Patient continues to follow vegan diet and has attempted to decrease smoking ? Follow-up with Dr. Enrique as outpatient History of MS -Patient is not on any medications at baseline for this -Monitor for signs and symptoms clinically -Currently appears to be in remission -Diagnosed in 2013 Tobacco abuse -Patient has reduced tobacco use but still smoking -Strongly recommend cessation especially with cancer diagnoses -Nicotine patch offered and patient declined DVT prophylaxis -Lovenox daily -SCDs CODE STATUS -Full code as per discussion on admission Charges/Coding Visit Charges Inpatient E&M: 49442 Subs Hosp L2
[2022-04-16] MEDS: 0.9% Saline Lock 10 ML Syringe IV ×3 (12:29→17:46)
[2022-04-16] MEDS: Furosemide 40 MG/4 ML Vial IV (13:28)
[2022-04-16 15:36] VITALS: BP 145/83; PULSE 69; RESP 16; TEMP 36.3; O2SAT 96
--- NOTE | 2022-04-16 16:20 | PN_ITS ---
Subjective Subjective Patient is stating that he still is having a lot of abdominal pain and is not able to survive without IV pain medicine. He has not had a bowel movement as of yet. Objective Data Objective Data Vital Signs: Vital Signs Temp Pulse Resp BP Pulse Ox O2 Del Method 97.4 F L 69 16 145/83 H 96 Room Air 04/16/22 15:36 04/16/22 15:36 04/16/22 15:36 04/16/22 15:36 04/16/22 15:36 04/16/22 15:36 Oxygen Delivery Method Room Air Weight: 128 lb 1.417 oz Body Mass Index (BMI) 21.2 Intake & Output: Intake and Output for Last 24 Hours 04/14/22 04/15/22 04/16/22 23:59 23:59 23:59 Intake Total 2203.33 / 2203.33 2730 / 2930 3216.67 / 3216.67 Output Total 850 / 850 Balance 2203.33 / 2203.33 2730 / 2680 2366.67 / 2366.67 Lab / Micro Data Result Diagrams: 04/15/22 04:54 04/16/22 05:08 Labs: Laboratory Results - last 24 hr 04/16/22 05:08: Sodium 135 L, Potassium 3.8, Chloride 102, Carbon Dioxide 25.0, Anion Gap 8, BUN 10, Creatinine 0.53 L, Estim Creat Clear Calc 114.19, Est GFR (MDRD) Af Amer 199, Est GFR (MDRD) Non-Af 165, BUN/Creatinine Ratio 18.8, Glucose 86, Calcium 8.5, Total Bilirubin 0.90, AST 39 H, ALT 54, Alkaline Phosphatase 683 H, Total Protein 5.4 L, Albumin 2.6 L, Globulin 2.8, Albumin/Globulin Ratio 0.9 Radiography Diagnostic Testing: Radiology Impression MRCP 04/15/22 09:37 IMPRESSION: Abrupt cut off in the proximal common bile duct with upstream intrahepatic biliary ductal dilatation indicating non-patent stent. Refer to CT from yesterday for other intra-abdominal findings. Electronically Signed: Tre Rivera MD at 16:39 EDT , Venous Doppler Study 04/16/22 12:06 Interpretation Summary No evidence for acute deep venous thrombosis bilateral lower extremities with patent and compressible bilateral great saphenous veins. Ordering Physician: Margo Casas Referring Physician: Madhavi Miramontes M.D. Performed By: Celi Hamilton RVT Physical Exam Const alert, oriented x3, no apparent distress, average body habitus and well nourished Constitutional Narrative: Upper middle-aged white male lying in bed, nursing at bedside, patient appears comfortable and nontoxic at this time HEENT normocephalic, head/scalp atraumatic, hearing grossly normal bilaterally, moist oral mucous membranes and oropharynx normal HEENT Narrative: Dentition is poor, Mallampati is 2, no thrush Resp normal respiratory effort, no retractions, no use of accessory muscles and clear to auscultation bilaterally Resp Narrative: Diffusely diminished but clear Auscultation: Negative for crackles, rales, rhonchi or wheezes Cardio regular rate, regular rhythm, S1 normal heart sound, S2 normal heart sound, no murmurs, no rub, no gallops, no clicks and no JVD GI soft to palpation GI Narrative: Mild distention with mild tenderness diffusely, bowel sounds are normal active Inspection: abdominal distention Auscultation: normoactive bowel sounds Palpation: soft and no hepatosplenomegaly; Negative for firm, guarding, rigid or hernia Extremity normal to inspection Extremity Narrative: Proximal greater than distal bilateral lower extremity swelling right greater than left, no cyanosis or clubbing Neuro oriented x3, CN's II-XII intact bilaterally, moves all extremities and no focal motor deficits Sensorium / Orientation: awake, alert, oriented to person, oriented to place and oriented to time Speech: speech normal Assessment & Plan Assessment/Plan (1) Acute pancreatitis: PLAN: 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 His second episode was thought to be secondary to instrumentation from recent stent placement during ERCP. All his LFTs are within normal limits except for his alkaline phosphatase and mild transaminitis. His bili normal. He is still complaining of of bandlike abdominal pain. He does not want to take anything for constipation. He does have a mild ileus. I will put him on Reglan IV and azithromycin IV and I encouraged him to use mag citrate if he does not want to do enemas in order to facilitate improvement of his abdominal pain. Charges/Coding Visit Charges Inpatient E&M: 68808 Subs Hosp L2
[2022-04-16 17:16] LABS: Carbohydrate AG 19-9 32 U/mL (0-35); Carcinoembryonic Antigen 38.1 ng/mL (0.0-4.7)
[2022-04-16] MEDS: Tamsulosin HCl 0.4 MG Capsule PO (17:43)
[2022-04-16 20:10] VITALS: BP 141/87; PULSE 79; RESP 16; TEMP 36.8; O2SAT 94
[2022-04-17] MEDS: Lactulose 20 GM/30 ML UDC PO ×2 (02:58→05:53)
[2022-04-17 02:59] VITALS: BP 151/78; PULSE 69; RESP 18; TEMP 36.4; O2SAT 95
[2022-04-17] MEDS: Metoclopramide 10 MG/2 ML Vial 5 MG IV (05:52)
[2022-04-17] MEDS: HYDROmorphone 1 MG/ML Syringe IV (05:52)
[2022-04-17 06:43] LABS: ALB/GLOB Ratio 0.9 RATIO (0.9-2.4); AST(SGOT) 41 U/L (15-37); Alanine Aminotransfer ALT/SGPT 59 U/L (16-61); Alkaline Phosphatase 741 U/L (45-117); Anion Gap 6 (5-15); BUN 8 mg/dL (7-18); Calcium,Total 8.7 mg/dL (8.5-10.1); Chloride 100 mmol/L (98-107); Creatinine, Serum 0.66 mg/dL (0.70-1.30); EST Glomerular Filtration Rate 128 mL/min (>60); Est Glom Filt Rate - Afr Amer 154 mL/min (>60); Globulin 3.2 g/dL (2.2-4.2); Glucose 121 mg/dL (74-106); Potassium 3.2 mmol/L (3.5-5.1); Protein, Total 6.2 g/dL (6.4-8.2); Sodium Level 134 mmol/L (136-145)
--- NOTE | 2022-04-17 08:00 | PN_ITS ---
Subjective Subjective She states that he is feeling a lot better after having a bowel movement. He is able to tolerate a diet. His abdominal pain , bloating, nausea and abdominal distention is a lot better. Objective Data Objective Data Vital Signs: Vital Signs Temp Pulse Resp BP Pulse Ox O2 Del Method 98.9 F 70 18 134/68 H 98 Room Air 04/17/22 11:10 04/17/22 11:10 04/17/22 11:10 04/17/22 11:10 04/17/22 11:10 04/17/22 11:10 Oxygen Delivery Method Room Air Weight: 128 lb 1.417 oz Body Mass Index (BMI) 21.2 Intake & Output: Intake and Output for Last 24 Hours 04/15/22 04/16/22 04/17/22 23:59 23:59 23:59 Intake Total 2730 / 2930 4216.67 / 4216.67 700 / 700 Output Total 850 / 850 250 / 250 Balance 2730 / 2680 3366.67 / 3366.67 450 / 450 Lab / Micro Data Result Diagrams: 04/15/22 04:54 04/17/22 06:00 Labs: Laboratory Results - last 24 hr 04/14/22 12:44: Carcinoembryonic Ag 38.1 H, CA 19-9 Antigen 32 04/17/22 06:00: Sodium 134 L, Potassium 3.2 L, Chloride 100, Carbon Dioxide 28.0, Anion Gap 6, BUN 8, Creatinine 0.66 L, Estim Creat Clear Calc 91.70, Est GFR (MDRD) Af Amer 154, Est GFR (MDRD) Non-Af 128, BUN/Creatinine Ratio 12.0, Glucose 121 H, Calcium 8.7, Total Bilirubin 1.00, AST 41 H, ALT 59, Alkaline Phosphatase 741 H, Total Protein 6.2 L, Albumin 3.0 L, Globulin 3.2, Albumin/Globulin Ratio 0.9 Radiography Diagnostic Testing: Radiology Impression Venous Doppler Study 04/16/22 12:06 Interpretation Summary No evidence for acute deep venous thrombosis bilateral lower extremities with patent and compressible bilateral great saphenous veins. Ordering Physician: Mrago Casas Referring Physician: Madhavi Miramontes M.D. Performed By: Celi Hamilton RVT Physical Exam Narrative He is feeling much better. Has had several bowel movements to the point now where his stool is somewhat liquid. No significant nausea and p.o. intake has improved. Patient states he is anxious to go home today. . States the swelling in his groin area is about the same. Dopplers were negative for DVT. Const alert, oriented x3, no apparent distress, average body habitus, no limitations and well nourished Constitutional Narrative: Upper middle-aged white male lying in bed, nursing at bedside, patient appears comfortable and nontoxic at this time General Appearance: cooperative, comfortable, well kempt and well developed Orientation / Consciousness: awake, oriented to person, oriented to place and oriented to time Exam Limitations: no limitations HEENT normocephalic, head/scalp atraumatic, hearing grossly normal bilaterally, moist oral mucous membranes and oropharynx normal HEENT Narrative: Dentition is poor, Mallampati is 2, no thrush Eyes PERRL, EOMs intact bilaterally and conjunctivae normal Eyes Narrative: No scleral icterus Neck no lymphadenopathy, supple, no JVD and no carotid bruits Resp normal respiratory effort, no retractions, no use of accessory muscles and clear to auscultation bilaterally Resp Narrative: Diffusely diminished but clear Auscultation: Negative for crackles, rales, rhonchi or wheezes Cardio regular rate, regular rhythm, S1 normal heart sound, S2 normal heart sound, no murmurs, no rub, no gallops, no clicks and no JVD GI normal to inspection, nondistended, normoactive bowel sounds, soft to palpation, non-tender and non-distended GI Narrative: Distention has resolved Auscultation: normoactive bowel sounds Extremity normal to inspection Extremity Narrative: Proximal greater than distal bilateral lower extremity swelling right greater than left, no cyanosis or clubbing Skin no rashes or lesions noted, no wounds, skin turgor normal, no jaundice, no petechiae and no mottling Neuro oriented x3, CN's II-XII intact bilaterally, moves all extremities and no focal motor deficits Sensorium / Orientation: awake, alert, oriented to person, oriented to place and oriented to time Speech: speech normal Psych affect normal Psych Narrative: Very talkative and appropriately interactive Mood & Affect: Negative for depressed or anxious Assessment & Plan Assessment/Plan (1) Acute pancreatitis: PLAN: Acute pancreatitis initially from choledocholithiasis status post removal of common bile duct stone with dilation of stricture, brushings and stent placement. He returned with pancreatitis likely secondary to sphincterotomy or stent placement. This was also exacerbated by worsening constipation secondary to narcotics and anesthesia. Patient had a good bowel movement with lactulose therapy. Recommend Dulcolax twice a day plus as needed lactulose. Patient can be DC'd as he has GI follow-up in next week. Charges/Coding Visit Charges Inpatient E&M: 91697 Subs Hosp L2
[2022-04-17] MEDS: Potassium Chloride Oral Tablet 20 MEQ 60 MEQ PO (08:02)
[2022-04-17 08:08] VITALS: BP 134/84; PULSE 74; RESP 18; TEMP 36.8; O2SAT 95
--- NOTE | 2022-04-17 10:18 | PCM.DC.SUM ---
Providers Date of Admission: 04/14/22 Date of Discharge: 04/17/22 Primary Care Physician: Dr. Madhavi Miramontes, DO Consultations 04/14/22 13:17 Consult: Gastroenterology Routine Consulting Provider: [facility] Reason for Consult: ERCP induced pancreatitis EMERGENT Consult: No MD Notified: Yes Date Notified: 04/14/22 Time Notified: 12:40 Method of Notification: Verbal Reason For Visit: ERCP INDUCED PANCREATITIS Diagnosis Discharge Diagnosis (1) Acute pancreatitis: Status: Acute Code(s): K85.90 - Acute pancreatitis without necrosis or infection, unspecified Plan Acute pancreatitis -Likely chemical pancreatitis as no pancreatic abnormalities were noted on CT -Likely related to his recent ERCP -Admitting lipase is 7830 -No reason to repeat and will follow clinically -Advance diet and encourage p.o. 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 as the etiology for his chronic abdominal pain and constipation -Continue MiraLAX 17 g twice daily and we will likely discharge him on this to facilitate improved bowel habits -Increase lactulose to every 4 hours -Colace 1 times -Patient resistant to suppository and enemas at this time Transaminitis/hyperbilirubinemia -Resolved -Likely related to biliary stricture/choledocholithiasis from previous admission -CEA and CA 19-9 remain pending -GI is following Edema -Likely related to aggressive hydration with pancreatitis -If patient eats and drinks well will be able to discontinue IV fluids -Able to stop IV fluids will consider Lasix 40 mg x 1 dose -Given history of cancer will check bilateral lower extremity Dopplers--> pending Chronic macrocytic anemia -Counts are stable -Trend History of prostate cancer metastatic to bone ? Patient initially diagnosed in October 2020. Patient refused chemotherapy and radiation, but was on LHRH agonist therapy with Dr. Rebolledo. Last treatment in August 2021, per patient, and hasn't seen Dr. Rebolledo since because he owes him $175 and has to figure that out. ? Repeat CA 19-9 and CEA pending ? Patient continues to follow vegan diet and has attempted to decrease smoking ? Follow-up with Dr. Enrique as outpatient History of MS -Patient is not on any medications at baseline for this -Monitor for signs and symptoms clinically -Currently appears to be in remission -Diagnosed in 2013 Tobacco abuse -Patient has reduced tobacco use but still smoking -Strongly recommend cessation especially with cancer diagnoses -Nicotine patch offered and patient declined DVT prophylaxis -Lovenox daily -SCDs CODE STATUS -Full code as per discussion on admission Medications at Discharge Home Medications ondansetron 4 mg disintegrating tablet 4 mg PO Q8H PRN nausea and vomiting #10 tabs 03/30/22 docusate sodium 100 mg capsule (Dulcolax Stool Softener (docusate)) 100 mg PO BID #60 caps 04/17/22 lactulose 20 gram/30 mL oral solution 20 g (30 mL) PO BID PRN constipation #1,200 mL 04/17/22 oxycodone 5 mg capsule 5 mg PO Q6H PRN pain 3 days #12 caps 04/17/22 tamsulosin 0.4 mg capsule 0.4 mg PO DAILY@1730 #30 caps 04/17/22 Hospital Course Operations None Procedures - (Bilateral lower extremity venous duplex/MRCP/CT abdomen pelvis) Summary of Care Provided Minutes Spent on Discharge: 37 Hospital Course: Mr. Garza is a 66-year-old male who presented to the emergency department [facility] on 04/14/2022 for abdominal pain. The patient indicated he has chronic abdominal pain in the bilateral flanks was has been ongoing for a while and he reported it was least 2 months. It seemed to be related to chronic constipation but on the day of admission he reported he developed sudden onset flank pain and some epigastric pain that he rated 10 out of 10 on presentation. He indicated he had some shortness of breath related to the pain as well. He has had no nausea or vomiting. He had been able to eat but his appetite had been decreased over the last couple days. He has been vegan since he was diagnosed with prostate cancer but he still smokes. He did acknowledge that the eating increases pain approximately 20 minutes after oral intake. He was unclear when his last bowel movement was however he reported its probably been several days. He ate mashed potatoes the evening prior to admission for dinner without any significant issue and had juice on the morning of admission. He has a known history of prostate cancer that is metastatic to bone and follows with outpatient oncology and urology for this.? At his most recent follow-up he was found to have elevated liver enzymes and elevated alk phos with a normal bilirubin and a CT was performed that showed biliary ductal dilation.? The patient was referred to gastroenterology as an outpatient but unfortunately had developed jaundice which prompted him to visit the emergency department on 04/06/2022.? At that time he had worsened transaminitis as well as a worsening alk phos elevation in his bilirubin was 8 at that time.? A CT was again performed and showed a density in the distal common bile duct and the patient was admitted.? An ERCP was performed on 04/07/2022 that showed multiple obstructions that were concerning for malignancy and a biliary stent was placed and brushings were obtained for cytology.? A CA 19 9 and a CEA were obtained and both found to be mildly elevated. Upon presentation the emergency department his vitals were as follows: Temperature 97.6, heart rate 74, blood pressure 130/79, respiratory rate 24 that improved to 16, and a pulse ox of 100% on room air.? His CBC showed a mild macrocytic anemia which appears to be chronic and stable and a thrombocytosis that is mild with a platelet count of 477,000.? His chemistry panel was overall unremarkable other than his liver enzymes remain elevated however improved.? His alkaline phosphatase is down to 856, ALT to 74, AST to 41, and bilirubin is now 1.4.? Given his abdominal pain and nausea lipase was obtained and was found to be 7830.? A UA was obtained and was somewhat suggestive for infection with an elevated leuk esterase mildly elevated white cells and 1+ bacteria however the patient had no symptoms of dysuria or frequency.? A CT of his abdomen pelvis was performed and found a large amount of fecal material in the colon, sigmoid diverticulosis, biliary stent in the proximal tip of the right intrabiliary duct and the distal tip in the second portion of the duodenum which was reviewed by gastroenterology and noted to have no significant migration as well as diffuse sclerotic metastatic disease. It was felt his initial mild lipase elevation from his previous admission was related to his choledocholithiasis and his chemical pancreatitis upon this presentation was likely ERCP related. His liver enzymes trended down and normalized prior to discharge. He was treated aggressively with IV fluids, pain medication, and medication for improving his bowels most notably with MiraLAX and lactulose. He had an episode of urinary retention during his stay for which she required straight cath and then was placed on Flomax and had no further issues. He will be discharged on Flomax. We were finally able to get him to have several bowel movements and he reported that he finally was cleared out he was evaluated by gastroenterology during his course and the MRCP that was performed showed the biliary stent was blocked however this did not correlate with his clinical presentation especially given the fact that his liver enzymes and bilirubin normalized. His pain slowly improved especially when his bowel started to move and his oral intake improved. We were able to discharge him in stable condition on 04/17/2022 to home. He was discharged on Dulcolax twice daily scheduled and instructed to take lactulose 20 g twice daily if he did not have bowel movements every other day and to stop once he was having bowel movements every other day to daily again. We did discharge him on a short course of pain medication on a as needed basis for any abdominal cramping he had. But we did discourage use as he he will is aware that this increases his risk for constipation. He has follow-up with Dr. Law the week after next and he believes the appointment date was 28 April. Prescriptions for the Dulcolax, lactulose, oxycodone, and Flomax were sent to his pharmacy upon discharge. He is to follow-up with his primary care physician within the next week. He states he also has follow-up with oncology pertaining to his metastatic prostate cancer in the near future. Discharge diagnoses: ERCP induced acute pancreatitis-resolved Severe constipation Chronic abdominal pain Transaminitis-resolved Hypokalemia-treated Hyperbilirubinemia-resolved Edema-Doppler negative for DVT Chronic macrocytic anemia History of prostate cancer with metastatic disease History of MS Tobacco abuse Physical Exam Narrative He is feeling much better. Has had several bowel movements to the point now where his stool is somewhat liquid. No significant nausea and p.o. intake has improved. Patient states he is anxious to go home today. Indicates he already has follow-up with Dr. Law he believes on 28 April. States the swelling in his groin area is about the same. Dopplers were negative for DVT. Const alert, oriented x3, no apparent distress, average body habitus, no limitations and well nourished Constitutional Narrative: Upper middle-aged white male lying in bed, nursing at bedside, patient appears comfortable and nontoxic at this time General Appearance: cooperative, comfortable, well kempt and well developed Orientation / Consciousness: awake, oriented to person, oriented to place and oriented to time Exam Limitations: no limitations HEENT normocephalic, head/scalp atraumatic, hearing grossly normal bilaterally, moist oral mucous membranes and oropharynx normal HEENT Narrative: Dentition is poor, Mallampati is 2, no thrush Eyes PERRL, EOMs intact bilaterally and conjunctivae normal Eyes Narrative: No scleral icterus Neck no lymphadenopathy, supple, no JVD and no carotid bruits Resp normal respiratory effort, no retractions, no use of accessory muscles and clear to auscultation bilaterally Resp Narrative: Diffusely diminished but clear Auscultation: Negative for crackles, rales, rhonchi or wheezes Cardio regular rate, regular rhythm, S1 normal heart sound, S2 normal heart sound, no murmurs, no rub, no gallops, no clicks and no JVD GI normal to inspection, nondistended, normoactive bowel sounds, soft to palpation, non-tender and non-distended GI Narrative: Distention has resolved Auscultation: normoactive bowel sounds Extremity normal to inspection Extremity Narrative: Proximal greater than distal bilateral lower extremity swelling right greater than left, no cyanosis or clubbing Skin no rashes or lesions noted, no wounds, skin turgor normal, no jaundice, no petechiae and no mottling Neuro oriented x3, CN's II-XII intact bilaterally, moves all extremities and no focal motor deficits Sensorium / Orientation: awake, alert, oriented to person, oriented to place and oriented to time Speech: speech normal Psych affect normal Psych Narrative: Very talkative and appropriately interactive Mood & Affect: Negative for depressed or anxious Weight / BMI Weight Weight: 58.1 kg Body Mass Index (BMI) 21.2 ABG / Lab / Microbiology Data Result Diagrams: 04/15/22 04:54 04/17/22 06:00 Laboratory: Laboratory Results - last 24 hr 04/14/22 12:44: Carcinoembryonic Ag 38.1 H, CA 19-9 Antigen 32 04/17/22 06:00: Sodium 134 L, Potassium 3.2 L, Chloride 100, Carbon Dioxide 28.0, Anion Gap 6, BUN 8, Creatinine 0.66 L, Estim Creat Clear Calc 91.70, Est GFR (MDRD) Af Amer 154, Est GFR (MDRD) Non-Af 128, BUN/Creatinine Ratio 12.0, Glucose 121 H, Calcium 8.7, Total Bilirubin 1.00, AST 41 H, ALT 59, Alkaline Phosphatase 741 H, Total Protein 6.2 L, Albumin 3.0 L, Globulin 3.2, Albumin/Globulin Ratio 0.9 Radiography Diagnostic Testing: Radiology Impression Venous Doppler Study 04/16/22 12:06 Interpretation Summary No evidence for acute deep venous thrombosis bilateral lower extremities with patent and compressible bilateral great saphenous veins. Ordering Physician: Margo Casas Referring Physician: Madhavi Miramontes M.D. Performed By: Celi Hamilton RVT D/C Instructions Discharge Diet: Light diet - advance as tolerated Discharge Activity: Return to Normal Activity Meaningful Use Info Meaningful Use Diagnoses (Choose all that apply): None applicable Discharge Plan Admission Admit Date/Time: 04/14/22 12:32 Primary Reason for Your Visit: Abdominal Pain 2/2 ERCP induced pancreatitis and severe constipation Attending Provider: Margo Casas Primary Care Provider: Madhavi Miramontse Discharge Orders/Prescriptions Prescriptions: New tamsulosin 0.4 mg Capsule 0.4 mg PO DAILY@1730 Qty: 30 1RF docusate sodium [Dulcolax Stool Softener (dss)] 100 mg capsule 100 mg PO BID Qty: 60 2RF lactulose 20 gram/30 mL solution 20 g PO BID PRN (Reason: constipation) Qty: 1200 0RF Rx Instructions: take only if not have BM every other day and stop once BM return and are soft as this can cause bloating oxycodone 5 mg capsule 5 mg PO Q6H PRN (Reason: pain) 3 Days Qty: 12 0RF Continued ondansetron 4 mg tablet,disintegrating 4 mg PO Q8H PRN (Reason: nausea and vomiting) Qty: 10 0RF Discontinued metronidazole 500 mg tablet 500 mg PO TID 7 Days Qty: 21 0RF ciprofloxacin HCl 500 mg tablet 500 mg PO BID 7 Days Qty: 14 0RF Referrals / Follow Up: Madhavi Miramontes DO [Primary Care Provider] - Within 1 Month FriendWillie DO [STAFF PHYSICIAN] - See Referral Note (as scheduled ) Disposition Disposition (needs filled in before D/C Order can be placed): Home, Self Care Charges/Coding Visit Charges Inpatient E&M: 60677 Disch Hosp
[2022-04-17] MEDS: oxyCODONE 5 MG Tablet PO (11:06)
[2022-04-17 11:10] VITALS: BP 134/68; PULSE 70; RESP 18; TEMP 37.2; O2SAT 98
== END 2022-04-17 11:12 | disposition home or self-care (01) | DRG 439 ==
LOC: ED 12:08 → MS3 12:56
PROVIDERS: Admitting Provider Internal Medicine; Emergency Provider Emergency Medicine; PCP Internal Medicine; Visit Provider Internal Medicine
DX: K85.80 Other acute pancreatitis without necrosis or infection (principal); C79.51 Secondary malignant neoplasm of bone; K83.8 Other specified diseases of biliary tract; C61 Malignant neoplasm of prostate; D53.9 Nutritional anemia, unspecified; E80.7 Disorder of bilirubin metabolism, unspecified; G35 Multiple sclerosis; E87.6 Hypokalemia; K57.30 Diverticulosis of large intestine without perforation or abscess without bleeding; F17.210 Nicotine dependence, cigarettes, uncomplicated; Z79.899 Other long term (current) drug therapy; R74.01 Elevation of levels of liver transaminase levels
CPT/HCPCS: 36415; 74177; 74181; 80053; 81001; 82378; 83605; 83690; 83735; 84100; 85025; 86301; 93970; 99251; 99283; 99406; J7030; J7120; Q9967; A4216; G0463; J1940; J2405

== ENCOUNTER 2022-04-28 22:10 | Emergency (ER) | payer OTHER, SELFPAY ==
[2022-04-28 22:12] VITALS: BP 154/85; PULSE 101; RESP 16; TEMP 37.1; O2SAT 100; BMI 21.6
--- NOTE | 2022-04-28 22:42 | RAD_ITS ---
STUDY: X-RAY - ACUTE ABDOMINAL SERIES REASON FOR EXAM: Male, 66 years old. Abdominal pain. TECHNIQUE: Single view of the chest. Supine, view(s) of the abdomen were obtained. COMPARISON: None. FINDINGS: The lungs are hyperexpanded. There is chronic interstitial coarsening. Question patchy infiltrate at the right lung base with small right pleural effusion. Question small left pleural effusion Normal size heart. Normal mediastinum and nury. Normal visualized pulmonary arteries. Normal visualized aortic arch and descending thoracic aorta. There is nonspecific bowel gas pattern with air seen throughout the colon as well as in mildly distended small bowel loops. There are air-fluid level on the upright image. There is evidence of a biliary stent catheter. No free air. The soft tissue structures of the abdomen and pelvis are unremarkable. Normal visualized osseous structures. RAD/Acute Abdomen Inc Chest IMPRESSION: 1. Bilateral pleural effusions with questionable infiltrate at the right lung base. 2. A nonspecific bowel gas pattern. Ileus versus early or incomplete small bowel obstruction Electronically Signed: Darion Weller DO at 23:42 EDT Reading Location ID and State: [id number] [facility] Tel [phone], Service support ,
[2022-04-28] MEDS: Ondansetron 4 MG/2 ML Vial IV (23:02)
[2022-04-28] MEDS: HYDROmorphone 1 MG/ML Syringe IV (23:02)
[2022-04-28] MEDS: 0.9% Normal Saline 1,000 ML 999 ML IV (23:05)
[2022-04-28 23:14] LABS: Absolute Lymphocyte Count 1.08 X10^3/uL (0.83-4.51); Absolute Neutrophil Count 8.2 X10^3/uL (2.0-7.7); Basophil# 0.05 X10^3/uL; Basophil% 0.5 % (0-1); Eosinophil# 0.02 X10^3/uL; Eosinophils% 0.2 % (0-5); Hematocrit 35.4 % (40-54); Hemoglobin 12.2 g/dL (13.0-16.5); Lymphocyte # 1.08 X10^3/ul (0.83-4.51); Lymphocyte % 9.9 % (19-41); Mean Corp Hgb Conc 34.5 g/dL (32-36); Mean Corpuscular Hgb 34.1 pg (27.0-32.0); Mean Corpuscular Volume 98.9 fL (80-94); Mean Platelet Vol. 9.4 fl (6.2-12.0); Monocyte# 1.42 X10^3/uL; NRBC Flagged by Analyzer 0 % (0-5); Neutrophil # 8.21 X10^3/uL (2.7-7.7); Neutrophil % 75.4 % (47-70); Platelet Count 373 K/mm3 (150-450); RBC Distribution Width CV 12.3 % (11.6-14.6); Red Blood Count 3.58 M/mm3 (4.6-6.2); White Blood Count 10.9 K/mm3 (4.4-11.0)
[2022-04-28 23:39] VITALS: BP 151/88; PULSE 86; RESP 15; O2SAT 94
[2022-04-28 23:45] LABS: AST(SGOT) 21 U/L (15-37); Alanine Aminotransfer ALT/SGPT 22 U/L (16-61); Albumin, Serum 2.7 g/dL (3.2-5.0); Alkaline Phosphatase 557 U/L (45-117); Anion Gap 10 (5-15); BUN 9 mg/dL (7-18); Bilirubin, Direct 0.46 mg/dL (0.00-0.30); Calcium,Total 8.8 mg/dL (8.5-10.1); Chloride 100 mmol/L (98-107); EST Glomerular Filtration Rate 177 mL/min (>60); Est Glom Filt Rate - Afr Amer 214 mL/min (>60); Estimated Creatinine Clearance 122.85 ml/min; Globulin 3.6 g/dL (2.2-4.2); Glucose 108 mg/dL (74-106); Lipase 1100 U/L (73-393); Potassium 4.1 mmol/L (3.5-5.1); Protein, Total 6.3 g/dL (6.4-8.2); Sodium Level 132 mmol/L (136-145)
[2022-04-28 23:56] LABS: Lactic Acid 0.7 mmol/L (0.4-1.9)
--- NOTE | 2022-04-29 00:21 | CT_ITS ---
STUDY: CT ABDOMEN AND PELVIS WITH CONTRAST REASON FOR EXAM: Male, 66 years old. abnormal x-ray / ? SBO RADIATION DOSAGE (If Supplied By Facility): CTDIvol = ( 8.55 ) mGy, DLP = ( 362.26 ) mGycm TECHNIQUE: Transaxial images were obtained from the dome of the diaphragm to the symphysis pubis without oral contrast. IV 100mL Isovue-[id number] was administered. Sagittal and coronal images were reconstructed. Individualized dose optimization techniques were used for this CT. COMPARISON: CT abdomen and pelvis 04/14/2022. FINDINGS: LOWER CHEST: Small bilateral pleural effusions greater on the right. Compressive atelectasis lower lobes. Mild septal thickening.. LIVER: Unremarkable. GALLBLADDER/BILE DUCTS: Biliary stent in the CBD to the right intrahepatic duct unchanged position. Intrahepatic dilatation particularly in the left lobe partially decreased compared to prior study, with increased air in the biliary tree. Gallbladder contracted. PANCREAS: Unremarkable. SPLEEN: Unremarkable. ADRENAL GLANDS: Left adrenal mass not significantly changed. Mild thickening right adrenal.. KIDNEYS / URETERS: Unremarkable. BOWEL / MESENTERY: Fluid distended mildly dilated small bowel in the mid to lower abdomen. No distinct transition zone.. No bowel obstruction. Moderate amount of stool throughout the colon. APPENDIX: Identified and normal. No evidence of acute appendicitis. PERITONEUM: No free air. No free fluid. VESSELS: Abdominal aorta is normal caliber. RETROPERITONEUM: Unremarkable. REPRODUCTIVE ORGANS: Unremarkable. BLADDER: Unremarkable. ABDOMINAL WALL: Mild diffuse subcutaneous edema. Prominent inguinal lymph nodes bilaterally. BONES: Diffuse sclerotic bone lesions as on prior. OTHER: None. CT/Abdomen/Pelvis W IV Cont ONLY IMPRESSION: Mildly dilated small bowel. Pattern may be consistent with ileus or enteritis versus partial or intermittent small bowel obstruction. Biliary stent with partially decreased biliary dilatation compared to prior. Bilateral pleural effusions with lower lobe consolidation possibly pneumonia. Diffuse osseous metastases. Electronically Signed: Lyn Baker MD at 1:05 EDT Reading Location ID and State: [facility] / [place] Tel , Service support ,
[2022-04-29 00:29] VITALS: O2SAT 84
[2022-04-29 00:30] VITALS: O2SAT 93
[2022-04-29] MEDS: HYDROmorphone 0.5 MG/0.5 ML SYRINGE IV (00:50)
[2022-04-29 00:56] VITALS: BP 139/86; PULSE 85; RESP 15; O2SAT 95
[2022-04-29 01:42] VITALS: BP 141/86; PULSE 90; RESP 15; O2SAT 96
--- NOTE | 2022-04-29 01:44 | EX.ED.DYSGE1 ---
HPI History of Present Illness Chief Complaint: Abd Pain Narrative Narrative: Patient is a 66-year-old male with past medical history of metastatic prostate cancer. He states he recently started seeing palliative care secondary to chronic pain from this and is on oxycodone every 6 hours. He states that he was also admitted to the hospital about 1 to 2 weeks ago with possible bowel obstruction and pancreatitis. He states over the past few days he has been having increased abdominal pain and distention and tried increasing his oxycodone to every 4 hours. He states he did not like the way this made him feel. He reports he is concerned he is becoming dehydrated as he has had decreased urine output and he has had poor oral intake. Secondary to these concerns as well as the fact that his pain is not under control he presents for evaluation [facility] Medical History (Updated 04/29/22 @ 01:[address] Haja Allen, ) Abdominal pain Cancer Common bile duct mass Difficulty balancing Diverticulitis Ganglion cyst of dorsum of left wrist History of biliary stent insertion Jaundice Limb weakness Multiple sclerosis Prostate cancer metastatic to bone Smoker Substance abuse Home Medications ondansetron 4 mg disintegrating tablet 4 mg PO Q8H PRN nausea and vomiting #10 tabs 03/30/22 [Rx Last Taken Unknown] docusate sodium 100 mg capsule (Dulcolax Stool Softener (docusate)) 100 mg PO BID #60 caps 04/17/22 [Rx Last Taken Unknown] lactulose 20 gram/30 mL oral solution 20 g (30 mL) PO BID PRN constipation #1,200 mL 04/17/22 [Rx Last Taken Unknown] oxycodone 5 mg capsule 5 mg PO Q6H PRN pain 3 days #12 caps 04/17/22 [Rx Last Taken Unknown] tamsulosin 0.4 mg capsule 0.4 mg PO DAILY@1730 #30 caps 04/17/22 [Rx Last Taken Unknown] Allergy/AdvReac Type Severity Reaction Status Date / Time No Known Allergies Allergy Verified 04/28/22 22:15 Family History Father Lung cancer Mother Hypertension Gout Uncle Pancreatic cancer maternal Lung cancer paternal Surgical History History of microdiscectomy History of rotator cuff surgery Hx of prostate biopsy Previous back surgery Social History household members: spouse and family 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; 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 Smoking Status: Current every day smoker tobacco type: cigarettes alcohol intake: never substance use type: does not use ROS ROS ED Constitutional Constitutional ED: Denies chills or fever(s) ENT ENT ED: Denies sore throat Cardiovascular Cardiovascular: Denies chest pain Respiratory/Chest Respiratory/Chest: Denies cough or dyspnea Gastrointestinal Gastrointestinal: Reports abdominal pain, constipation and nausea; Denies diarrhea or vomiting Genitourinary Genitourinary ED: Denies dysuria Musculoskeletal Musculoskeletal: Denies myalgias Integumentary Denies rash Neurologic Neurologic: Denies headache(s) Hematologic/Lymphatic Hematologic/Lymphatic: Denies easy bleeding or easy bruising EXAM Physical Exam Const Vital Signs: 04/28/22 22:12 04/28/22 23:39 04/29/22 00:56 Temperature 98.8 F Temperature Source Temporal Pulse Rate 101 H 86 85 Respiratory Rate 16 15 15 Blood Pressure 154/85 H 151/88 H 139/86 H Blood Pressure Mean 108 109 103 Pulse Ox 100 94 95 Oxygen Delivery Method Room Air Room Air Nasal Cannula Oxygen Flow Rate (L/min) 3 04/29/22 00:29 04/29/22 00:30 04/29/22 01:42 Temperature Temperature Source Pulse Rate 90 Respiratory Rate 15 Blood Pressure 141/86 H Blood Pressure Mean 104 Pulse Ox 84 93 96 Oxygen Delivery Method Room Air Nasal Cannula Room Air Oxygen Flow Rate (L/min) 2 04/29/22 01:46 Temperature Temperature Source Pulse Rate 90 Respiratory Rate 15 Blood Pressure 141/86 H Blood Pressure Mean Pulse Ox 96 Oxygen Delivery Method Oxygen Flow Rate (L/min) Positive well nourished and well developed General Appearance ED: well developed HEENT Reports dry mucous membranes Mouth ED: Yes dry mucous membranes Mouth: dry mucous membranes Eyes PERRL and EOMs intact bilaterally Neck supple Resp normal respiratory effort Resp Narrative: Breath sounds are diminished in the lower lobes bilaterally with faint crackles at the sites but no signs of respiratory distress Cardio regular rate and regular rhythm Rate: other Other Details: Radial pulses are plus 2 out of 4 bilaterally are equal and symmetric GI GI Narrative: Abdomen is soft and slightly distended with hypoactive bowel sounds and diffuse pain on palpation. No fluid wave or pulsatile mass. No increased tympany Auscultation: hypoactive bowel sounds Palpation: soft Extremity Extremity Narrative: +2-3 pitting edema to the bilateral lower extremities that is greatest on the right with negative Homans' sign bilaterally Neuro oriented x3 and CN's II-XII intact bilaterally Sensorium / Orientation: alert Psych mental status grossly normal Skin no rashes or lesions noted and No skin turgor normal MDM MDM MDM Narrative Medical decision making narrative: Patient presented to the ER with history and exam concerning for possible obstruction. Secondary to this I elected to perform basic laboratory studies and a acute abdominal series as he had a CT scan about 1 to 2 weeks ago. The blood work did show elevation to his lipase but this is down significantly from his previous value of almost 8000. The x-ray showed pleural effusions in the lungs consistent with his physical exam and nonspecific gas pattern concerning for ileus versus obstruction. Secondary to this a CT was obtained. CT displayed chronic changes without obvious obstruction and his symptoms were stable or slightly improved compared to previous CT scan. On reevaluation he reports improvement of his pain and his abdomen remains soft and nonsurgical. Therefore at this time as symptoms appear to be more chronic in nature and he does not have acute kidney injury or obvious signs of infection or severe electrolyte derangement do not feel there is need for placement back in the hospital. Therefore patient will be discharged home and can keep his follow-up appoint with GI for later today. Lab Data Attestation: I reviewed the patient's lab results. Labs: Laboratory Results - last 24 hr 04/28/22 04/28/22 04/28/22 22:55 22:55 22:55 WBC 10.9 RBC 3.58 L Hgb 12.2 L Hct 35.4 L MCV 98.9 H MCH 34.1 H MCHC 34.5 RDW Std Deviation 45.0 H RDW Coeff of Ad 12.3 Plt Count 373 MPV 9.4 Immature Gran % (Auto) 1.000 H Neut % (Auto) 75.4 H Lymph % (Auto) 9.9 L [place] % (Auto) 13.0 H Eos % (Auto) 0.2 Baso % (Auto) 0.5 Absolute Neuts (auto) 8.2 H Absolute Lymphs (auto) 1.08 Nucleated RBC % 0 Sodium 132 L Potassium 4.1 Chloride 100 Carbon Dioxide 22.0 Anion Gap 10 BUN 9 Creatinine 0.50 L Estim Creat Clear Calc 122.85 Est GFR (MDRD) Af Amer 214 Est GFR (MDRD) Non-Af 177 BUN/Creatinine Ratio 18.0 Glucose 108 H Lactic Acid 0.7 Calcium 8.8 Total Bilirubin 0.70 Direct Bilirubin 0.46 H AST 21 ALT 22 Alkaline Phosphatase 557 H Total Protein 6.3 L Albumin 2.7 L Globulin 3.6 Lipase 1100 H Radiography Diagnostic Testing: Clinical Impression(s) from Imaging Studies Acute Abdomen Series 04/28/22 22:42 IMPRESSION: 1. Bilateral pleural effusions with questionable infiltrate at the right lung base. 2. A nonspecific bowel gas pattern. Ileus versus early or incomplete small bowel obstruction Electronically Signed: Darion Weller DO at 23:42 EDT , Abdomen/Pelvis CT 04/29/22 00:21 IMPRESSION: Mildly dilated small bowel. Pattern may be consistent with ileus or enteritis versus partial or intermittent small bowel obstruction. Biliary stent with partially decreased biliary dilatation compared to prior. Bilateral pleural effusions with lower lobe consolidation possibly pneumonia. Diffuse osseous metastases. Electronically Signed: Lyn Baker MD at 1:05 EDT , Acute abdominal series with 1 view chest x-ray as interpreted by the emergency medicine physician displays bilateral pleural effusions with nonspecific bowel gas pattern. Discharge Plan Triage Chief Complaint: Abd Pain Other Complaint: Back Male Pain/Injury ED Provider: Haja Allen Dx/Rx/DC Orders Clinical Impression: Abdominal pain, Prostate cancer metastatic to bone Instructions: Abdominal Pain, Prostate Cancer Tx Prescriptions: No Action ondansetron 4 mg tablet,disintegrating 4 mg PO Q8H PRN (Reason: nausea and vomiting) Qty: 10 0RF tamsulosin 0.4 mg Capsule 0.4 mg PO DAILY@1730 Qty: 30 1RF docusate sodium [Dulcolax Stool Softener (dss)] 100 mg capsule 100 mg PO BID Qty: 60 2RF lactulose 20 gram/30 mL solution 20 g PO BID PRN (Reason: constipation) Qty: 1200 0RF Rx Instructions: take only if not have BM every other day and stop once BM return and are soft as this can cause bloating oxycodone 5 mg capsule 5 mg PO Q6H PRN (Reason: pain) 3 Days Qty: 12 0RF Primary Care Provider: Madhavi Miramontes Referrals: Madhavi Miramontes, [Primary Care Provider] - Activity Restrictions/Additional Instructions: Please keep your appointment with Dr. Law today. Please continue your medication as directed but I would increase your lactulose to 3 times a day. Please talk to palliative care about either extended release oxycodone or fentanyl patch for improved pain control and return to the ER should you have any further concerns Disposition Disposition: Home, Self Care
[2022-04-29 01:46] VITALS: BP 141/86; PULSE 90; RESP 15; O2SAT 96
== END 2022-04-29 02:04 | disposition home or self-care (01) ==
PROVIDERS: Emergency Provider Emergency Medicine; PCP Internal Medicine; Visit Provider Emergency Medicine
DX: R10.9 Unspecified abdominal pain (principal); C79.51 Secondary malignant neoplasm of bone; C61 Malignant neoplasm of prostate; G89.29 Other chronic pain
CPT/HCPCS: 74022; 74177; 80048; 80076; 83605; 83690; 85025; 96374; 96375; 96376; 99283; J7030; Q9967; A4216; J2405

== ENCOUNTER 2022-05-01 11:37 | Emergency (ER) | payer OTHER, SELFPAY ==
[2022-05-01 11:40] VITALS: BP 146/82; PULSE 71; RESP 16; TEMP 37.2; O2SAT 97; BMI 20.2
--- NOTE | 2022-05-01 12:01 | ED.VIS.BACK ---
HPI History of Present Illness Chief Complaint: Back Informant: patient Onset/Context/Timing Onset: Month(s) Timing: Intermittent Quality: Sharp, Dull and Aching Location: Lumbar Current Severity: Moderate Maximum Severity: Moderate Worsened by: improves with Movement Relieved by: Nothing Associated Symptoms Associated Symptoms: Constipation; Negative for Numbness, Tingling, Radiation to Right Leg, Radiation to Left Leg, Fever, Abdominal Pain, Dysuria, Unable to Ambulate, Urinary Incontinence or Fecal Incontinence Narrative Narrative: 66-year-old male history of prostate cancer with bony metastases on palliative care. Also recent admission for jaundice which are still dry to determine the specific cause with it was benign obstruction or malignancy. Patient has chronic back pain from his metastases. He is on Aloxi codon at home. He states that it helps with the pain but then it returns. He is also taking ibuprofen. Also using muscle relaxants. Today's info just recurrent pain. Denies any fall or trauma. Denies any bowel or bladder incontinence. He has chronic constipation from the narcotic medications. He had prior discectomy back surgery 30 years ago. Prior similar symptoms: Yes Recent Illness/Hospitalization: Yes PFSH PFS Medical History Abdominal pain Cancer Common bile duct mass Difficulty balancing Diverticulitis Ganglion cyst of dorsum of left wrist History of biliary stent insertion Jaundice Limb weakness Multiple sclerosis Prostate cancer metastatic to bone Smoker Substance abuse Home Medications ondansetron 4 mg disintegrating tablet 4 mg PO Q8H PRN nausea and vomiting #10 tabs 03/30/22 [Rx Last Taken Unknown] docusate sodium 100 mg capsule (Dulcolax Stool Softener (docusate)) 100 mg PO BID #60 caps 04/17/22 [Rx Last Taken Unknown] lactulose 20 gram/30 mL oral solution 20 g (30 mL) PO BID PRN constipation #1,200 mL 04/17/22 [Rx Last Taken Unknown] oxycodone 5 mg capsule 5 mg PO Q6H PRN pain 3 days #12 caps 04/17/22 [Rx Last Taken Unknown] tamsulosin 0.4 mg capsule 0.4 mg PO DAILY@1730 #30 caps 04/17/22 [Rx Last Taken Unknown] metoclopramide HCl 10 mg tablet (Reglan) 10 mg PO TID #90 tabs 04/29/22 [Rx Last Taken Unknown] morphine 15 mg tablet,extended release (MS Contin) 15 mg PO Q8H 4 days #12 tabs 05/01/22 [Rx Last Taken Unknown] Allergy/AdvReac Type Severity Reaction Status Date / Time No Known Allergies Allergy Verified 05/01/22 11:38 Family History Father Lung cancer Mother Hypertension Gout Uncle Pancreatic cancer maternal Lung cancer paternal Surgical History History of microdiscectomy History of rotator cuff surgery Hx of prostate biopsy Previous back surgery Social History household members: spouse and family 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 Back pain. Review of Systems ROS Unobtainable: Denies due to encephalopathy Constitutional Constitutional ED: Denies chills or fever(s) Eyes Eyes: Denies blurry vision ENT ENT ED: Denies ear pain Cardiovascular Cardiovascular: Denies chest pain Respiratory/Chest Respiratory/Chest: Denies dyspnea Gastrointestinal Gastrointestinal: Reports constipation; Denies abdominal pain, diarrhea, melena, nausea or vomiting Genitourinary Genitourinary ED: Denies dysuria or hematuria Musculoskeletal Musculoskeletal: Reports back pain; Denies arthralgias Integumentary Denies abscess Neurologic Neurologic: Denies headache(s) Psychiatric Psychiatric: Denies anxiety Endocrine Endocrinology: Denies cold intolerance Hematologic/Lymphatic Hematologic/Lymphatic: Denies easy bleeding Allergic/Immunologic Allergic/Immunologic ED: Denies mouth swelling EXAM Physical Exam Narrative Exam Narrative: 61-year-old male vital signs stable afebrile. H EENT exam unremarkable. Neck nontender. Lungs clear to auscultation bilaterally. Heart regular rhythm rate about 70 no murmur. Abdomen soft nontender normal bowel sounds no peritoneal signs. Moving all 4 extremities. 1+ edema both lower extremities. Right slightly greater than left. Dorsi plantarflexion intact. 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 Back he has pain with rotating in the bed or movement. There is no reproducible back pain. Neurologically is awake and alert. There is no focal motor deficits. No cauda equina. He has Medial thigh sensation. No radiculopathy. Const Vital Signs: 05/01/22 11:40 Temperature 98.9 F Temperature Source Oral Pulse Rate 71 Respiratory Rate 16 Blood Pressure 146/82 H Blood Pressure Mean 103 Pulse Ox 97 Oxygen Delivery Method Room Air Positive well nourished and well developed; Negative for obese, cachectic, contractures or unkempt General Appearance ED: well developed; Negative for unkempt, cachectic or contractures Nutritional Appearance: Negative for cachectic or obese HEENT Reports moist mucous membranes; Denies dry mucous membranes Negative for trauma or tenderness Mouth ED: No dry mucous membranes Mouth: No dry mucous membranes Eyes PERRL and EOMs intact bilaterally General Eye ED: Negative for pale conjunctiva or scleral icterus Neck no lymphadenopathy and supple General: Negative for tenderness Thyroid: Negative for other Resp normal respiratory effort and clear to auscultation bilaterally Effort and Inspection: Negative for pain with movement Auscultation: Negative for rales, rhonchi or wheezes Percussion: Negative for other Cardio regular rate, regular rhythm, S1 normal heart sound, S2 normal heart sound and no murmurs Palpation: Negative for palpable S3 Rate: Negative for bradycardia Rhythm: Negative for abnormal rhythm Bruits: Negative for other GI normal to inspection, nondistended, normoactive bowel sounds, soft to palpation, non-tender, non-distended and no masses Inspection: Negative for abdominal distention Auscultation: Negative for hyperactive bowel sounds Palpation: Negative for tender, guarding or hepatomegaly Rectal Exam: Negative for visual inspection normal or other Back/Spine normal to inspection General Back: Negative for CVA tenderness Cervical Spine: Negative for cervical spine tenderness Thoracic Spine / Upper Back: Negative for paraspinal muscle tenderness Lumbar Spine / Lower Back: Negative for ROM limited or straight leg raise positive - left Extremity normal to inspection; Negative for no clubbing, cyanosis or edema General Extremety ED: Yes edema General Extremity: edema Neuro oriented x3 Sensorium / Orientation: alert; Negative for confused, lethargic or stuporous Sensory Exam: No other Motor Exam: strength 5/5 throughout Psych mental status grossly normal Appearance: Negative for unkempt Attitude: No agitated Skin no rashes or lesions noted and no wounds Trauma: Negative for abrasion Wounds: Negative for wounds noted MDM MDM MDM Narrative Medical decision making narrative: [id number] male with metastatic prostate CA with acute on chronic back pain. IM Niharika here. I will write him for 10 MS Contin for home. He can discuss with palliative care which pain medication works best for him and Connie 1 and was pain long-term. Discharge Plan Triage Chief Complaint: Back ED Provider: Jakob Weir Dx/Rx/DC Orders Clinical Impression: Acute exacerbation of chronic low back pain, Prostate cancer metastatic to bone Instructions: ED Chronic Pain Prescriptions: New morphine [MS Contin] 15 mg tablet extended release 15 mg PO Q8H 4 Days Qty: 12 0RF No Action metoclopramide HCl [Reglan] 10 mg tablet 10 mg PO TID Qty: 90 0RF Rx Instructions: administer 30 minutes before meals ondansetron 4 mg tablet,disintegrating 4 mg PO Q8H PRN (Reason: nausea and vomiting) Qty: 10 0RF tamsulosin 0.4 mg Capsule 0.4 mg PO DAILY@1730 Qty: 30 1RF docusate sodium [Dulcolax Stool Softener (dss)] 100 mg capsule 100 mg PO BID Qty: 60 2RF lactulose 20 gram/30 mL solution 20 g PO BID PRN (Reason: constipation) Qty: 1200 0RF Rx Instructions: take only if not have BM every other day and stop once BM return and are soft as this can cause bloating oxycodone 5 mg capsule 5 mg PO Q6H PRN (Reason: pain) 3 Days Qty: 12 0RF Primary Care Provider: Madhavi Miramontes Referrals: Madhavi Miramontes, [Primary Care Provider] - 3-5 Days Activity Restrictions/Additional Instructions: Try the MS Contin and see how that works for your pain. Follow-up with either your primary care physician Dr. Madhavi Miramontes or your palliative care physicians to discuss with them which pain medication works best for you. Disposition Disposition: Home, Self Care
[2022-05-01] MEDS: HYDROmorphone 1 MG/ML Syringe IM (12:08)
== END 2022-05-01 13:02 | disposition home or self-care (01) ==
PROVIDERS: Emergency Provider Emergency Medicine; PCP Internal Medicine; Visit Provider Emergency Medicine
DX: M54.50 Low back pain, unspecified (principal); C79.51 Secondary malignant neoplasm of bone; G35 Multiple sclerosis; C61 Malignant neoplasm of prostate; G89.29 Other chronic pain; F17.210 Nicotine dependence, cigarettes, uncomplicated
CPT/HCPCS: 96372; 99284

== ENCOUNTER → 2022-05-08 | Outpatient (CLI) | payer OTHER, SELFPAY | END | disposition home or self-care (01) | LOC: NM 09:53 | PROVIDERS: PCP Internal Medicine; Referring Provider Internal Medicine Medical Oncology; Visit Provider Internal Medicine Medical Oncology | DX: Z00.00 Encounter for general adult medical examination without abnormal findings (principal) ==

== ENCOUNTER 2022-06-14 12:25 | Emergency (ER) | payer OTHER, SELFPAY ==
[2022-06-14 12:26] VITALS: BP 136/82; PULSE 83; RESP 18; TEMP 36.4; O2SAT 98; BMI 22.0
--- NOTE | 2022-06-14 13:24 | RAD_ITS ---
STUDY: X-RAY - LEFT SHOULDER REASON FOR EXAM: Male, 66 years old. TRAUMA -- L TECHNIQUE: 2 view(s) of the shoulder. COMPARISON: None. FINDINGS: Normal glenohumeral articulation. Normal acromioclavicular joint. Normal acromion. Acute impacted fracture the humeral neck. The soft tissue structures are unremarkable. Normal visualized pulmonary apex. RAD/Shoulder min 2 Views IMPRESSION: Acute impacted humeral neck fracture. Electronically Signed: Vincenzo Pressley MD at 14:09 EDT ,
--- NOTE | 2022-06-14 13:41 | EDS_ITS ---
HPI History of Present Illness Chief Complaint: Upper Extremity Injury Detail of Chief Complaint: Injury to left shoulder Informant: patient Narrative Narrative: Patient presents the emergency department after injuring his left shoulder. P pia states that he had bent over to get some tomatoes and when he stood up he lost his balance and fell backwards injuring his left shoulder. Deny striking his head or loss of consciousness. Denies any other injuries. Patient is right-hand dominant. Patient currently on hospice for history of prostate cancer with mets to the bone. [facility] Medical History (Updated 06/14/22 @ 14:[address] Jeanette Jasmine, DO) Abdominal pain Bilateral pleural effusion Cancer Common bile duct mass Difficulty balancing Diverticulitis Ganglion cyst of dorsum of left wrist History of biliary stent insertion Jaundice Limb weakness Multiple sclerosis Prostate cancer metastatic to bone Smoker Substance abuse Home Medications docusate sodium 100 mg capsule (Dulcolax Stool Softener (docusate)) 100 mg PO BID #60 caps 04/17/22 [Rx Last Taken Unknown] tamsulosin 0.4 mg capsule 0.4 mg PO DAILY@1730 #30 caps 04/17/22 [Rx Last Taken Unknown] alprazolam 0.25 mg tablet (Xanax) 0.25 mg PO TID PRN Anxiety 06/14/22 [History Last Taken Unknown] calcium carbonate 600 mg-vitamin D3 10 mcg (400 unit) tablet (Calcium 600 + D(3)) 1 tab PO DAILY 06/14/22 [History Last Taken Unknown] dexamethasone 4 mg tablet 4 mg PO DAILY 06/14/22 [History Last Taken Unknown] hydrocodone-acetaminophen 5-325mg 5mg-325mg 1 tab PO Q4H PRN PRN Pain 2 days #10 TABLETS 06/14/22 [Rx Last Taken Unknown] methadone 5 mg tablet 5 mg PO BID 06/14/22 [History Last Taken Unknown] Allergy/AdvReac Type Severity Reaction Status Date / Time No Known Allergies Allergy Verified 06/14/22 12:26 Family History Father Lung cancer Mother Hypertension Gout Uncle Pancreatic cancer maternal Lung cancer paternal Surgical History History of microdiscectomy History of rotator cuff surgery Hx of prostate biopsy Previous back surgery Social History household members: spouse and family 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; 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 Smoking Status: Current some day smoker tobacco type: cigarettes alcohol intake: never substance use type: does not use ROS ROS ED Review of Systems ROS Unobtainable: other Constitutional Constitutional ED: Reports lethargy; Denies chills, fever(s), sweats or weight loss Eyes Eyes: Denies blurry vision, change in vision or diplopia ENT ENT ED: Denies rhinorrhea or sore throat Cardiovascular Cardiovascular: Denies chest pain, orthopnea or racing heartbeat Respiratory/Chest Respiratory/Chest: Reports dyspnea and dyspnea on exertion; Denies cough, orthopnea or sputum Gastrointestinal Gastrointestinal: Denies abdominal pain, diarrhea, nausea or vomiting Genitourinary Genitourinary ED: Denies dysuria, hematuria or urinary frequency Musculoskeletal Musculoskeletal: Reports other Details: Pain/injury to left shoulder ; Denies arthralgias, back pain, myalgias or neck pain Integumentary Denies abscess, Abrasions or rash Neurologic Neurologic: Denies headache(s) or weakness Psychiatric Psychiatric: Denies anxiety, depression or suicidal thoughts Endocrine Endocrinology: Denies polydipsia, polyphagia or polyuria Hematologic/Lymphatic Hematologic/Lymphatic: Denies easy bleeding, easy bruising or lymphadenopathy Allergic/Immunologic Allergic/Immunologic ED: Denies mouth swelling, tongue swelling or urticaria EXAM Physical Exam Const Vital Signs: 06/14/22 12:26 Temperature 97.5 F L Temperature Source Oral Pulse Rate 83 Respiratory Rate 18 Blood Pressure 136/82 H Blood Pressure Mean 100 Pulse Ox 98 Oxygen Delivery Method Nasal Cannula Oxygen Flow Rate (L/min) 2 Positive well nourished and well developed General Appearance ED: well developed and NAD HEENT Reports TM's clear and moist mucous membranes normocephalic and atraumatic; Negative for trauma or tenderness Tympanic Membrane ED: Yes TM's clear Eyes PERRL and EOMs intact bilaterally General Eye ED: Negative for pale conjunctiva or scleral icterus Neck no lymphadenopathy, supple and no JVD General: Negative for tenderness Chest Wall inspection of chest normal and palpation of chest normal Chest: Negative for tenderness Resp normal respiratory effort and clear to auscultation bilaterally Effort and Inspection: Negative for respiratory distress or pain with movement Auscultation: Negative for rhonchi, wheezes or diminished lung sounds Cardio regular rate, regular rhythm, S1 normal heart sound, S2 normal heart sound and no murmurs Peripheral Pulses: pulses 2+ throughout GI normal to inspection, nondistended, normoactive bowel sounds, soft to palpation, non-tender, non-distended and no masses Back/Spine no CVA tenderness and no thoracic nor lumbar tenderness Extremity Extremity Narrative: Patient has soft tissue swelling over the left shoulder. There is ecchymosis and bruising noted. Limited range of motion secondary to pain. He is neurovascular intact distally. General Extremety ED: Negative for edema General Extremity: Negative for edema Neuro oriented x3, CN's II-XII intact bilaterally, no sensory deficits noted and gait normal Sensorium / Orientation: awake, alert, oriented to person, oriented to place and oriented to time Motor Exam: strength 5/5 throughout and strength abnormal Psych mental status grossly normal Skin no rashes or lesions noted and no wounds MDM MDM MDM Narrative Medical decision making narrative: I discussed case with orthopedic surgeon on-call Dr. Hamilton who recommended sling and follow-up with his office. Patient will be given a prescription for [place] for breakthrough pain. Patient has a pain pump currently through hospice. Radiography Diagnostic Testin view x-rays of the left shoulder obtained interpreted by myself as fracture of the proximal humerus with impaction. Radiology in agreement. Discharge Plan Triage Chief Complaint: Upper Extremity Injury ED Provider: Jeanette Jasmine Dx/Rx/DC Orders Clinical Impression: Closed fracture of left proximal humerus Instructions: ED Fracture, Upper Extremity Prescriptions: New hydrocodone-acetaminophen [hydrocodone-acetaminophen] 5-325 mg tablet 1 tab PO Q4H PRN PRN (Reason: Pain) 2 Days Qty: 10 0RF No Action tamsulosin 0.4 mg Capsule 0.4 mg PO DAILY@1730 Qty: 30 1RF docusate sodium [Dulcolax Stool Softener (dss)] 100 mg capsule 100 mg PO BID Qty: 60 2RF alprazolam [Xanax] 0.25 mg Tablet 0.25 mg PO TID PRN (Reason: Anxiety) dexamethasone 4 mg Tablet 4 mg PO DAILY methadone 5 mg Tablet 5 mg PO BID calcium carbonate-vitamin D3 [Calcium 600 + D(3)] 600 mg-10 mcg (400 unit) Tablet 1 tab PO DAILY Primary Care Provider: Madhavi Miramontes Referrals: Bashir Hamilton DO [Med Staff - Active Staff] - 3-5 Days Madhavi Miramontes DO [Primary Care Provider] - Disposition Disposition: Home, Self Care
--- NOTE | 2022-06-14 13:42 | NURSING ---
HOSPICE IN ROOM
[2022-06-14 14:26] VITALS: BP 123/82; PULSE 91; RESP 16; O2SAT 95
[2022-06-14] MEDS: HYDROmorphone 1 MG/ML Syringe IV (14:50)
== END 2022-06-14 15:31 | disposition home or self-care (01) ==
PROVIDERS: Emergency Provider Emergency Medicine; PCP Internal Medicine; Visit Provider Emergency Medicine
DX: S42.202A Unspecified fracture of upper end of left humerus, initial encounter for closed fracture (principal); F17.210 Nicotine dependence, cigarettes, uncomplicated; W19.XXXA Unspecified fall, initial encounter; Z79.899 Other long term (current) drug therapy
CPT/HCPCS: 73030; 96374; 99284; A4216